=== PATIENT | female | born 1960 | race Caucasian/White ===

== ENCOUNTER 2021-04-06 16:57 | Inpatient (IN) | payer SELFPAY ==
--- NOTE | 2021-04-06 17:29 | Emergency Department Report ---
ED General Adult HPI - General Chief complaint: Head Injury Stated complaint: LEG PAIN, LOSS OF APPETITE Time Seen by Provider: 04/06/21 17:16 Source: patient Mode of arrival: Ambulatory Limitations: No Limitations - History of Present Illness Initial comments: Chief complaint: I fell HPI: This is a 61-year-old female without sniffing past medical history presents with fall right leg pain poor appetite. She is a poor appetite for several days. She fell yesterday. She struck her head. She appeared confused according to family at bedside. She has right leg pain status post fall. She denies sore throat, chest pain, abdominal pain. No sick contacts. Family friend reported that patient had leg swelling 6-7 months ago. Swelling resolved without intervention. Patient did not seek medical care at that time. -: days(s) (Fall on yesterday) Location: head (Headache after head trauma), right, lower extremity Severity scale (0 -10): 8 Quality: aching Consistency: constant Improves with: none Worsens with: movement (Right leg) Associated Symptoms: loss of appetite Treatments Prior to Arrival: other (Tylenol) - Related Data Allergies Allergy/AdvReac Type Severity Reaction Status Date / Time No Known Allergies Allergy Unverified 04/06/21 17:27 ED Review of Systems ROS: Stated complaint: LEG PAIN, LOSS OF APPETITE Other details as noted in HPI Comment: All other systems reviewed and negative Constitutional: malaise. denies: chills, fever ENT: denies: throat pain Respiratory: denies: cough, shortness of breath Cardiovascular: denies: chest pain Gastrointestinal: denies: abdominal pain, nausea, vomiting, diarrhea Musculoskeletal: arthralgia, myalgia. denies: back pain Neurological: headache ED Past Medical Hx - Past Medical History Previous Medical History?: No - Surgical History Past Surgical History?: No - Social History Smoking Status: Never Smoker Substance Use Type: None ED Physical Exam - General Limitations: No Limitations General appearance: alert, in no apparent distress, other (Appears in pain ) - Head Head exam: Present: atraumatic, normocephalic - Eye Eye exam: Present: normal appearance - ENT ENT exam: Present: mucous membranes moist - Neck Neck exam: Present: normal inspection, full ROM - Respiratory Respiratory exam: Present: normal lung sounds bilaterally. Absent: respiratory distress, wheezes, rales, rhonchi - Cardiovascular Cardiovascular Exam: Present: normal rhythm, tachycardia, normal heart sounds. Absent: systolic murmur, diastolic murmur, rubs, gallop - GI/Abdominal GI/Abdominal exam: Present: soft, normal bowel sounds. Absent: distended, te nderness, guarding, rebound - Expanded Lower Extremity Exam Right Hip exam: Present: full ROM, tenderness. Absent: swelling, abrasion Upper Leg exam: Present: normal inspection, full ROM, tenderness. Absent: swelling Knee exam: Present: normal inspection, full ROM, tenderness. Absent: swelling Lower Leg exam: Present: normal inspection, full ROM, tenderness. Absent: swelling Ankle exam: Present: normal inspection, full ROM, tenderness. Absent: swelling Foot/Toe exam: Present: normal inspection, full ROM Neuro vascular tendon exam: Present: no vascular compromise - Back Exam Back exam: Present: normal inspection - Neurological Exam Neurological exam: Present: alert, oriented X3 - Psychiatric Psychiatric exam: Present: normal affect, normal mood - Skin Skin exam: Present: warm, dry, intact, normal color. Absent: rash ED Course Vital Signs 04/06/21 04/06/21 04/06/21 17:04 17:09 17:22 Temperature 98.4 F Pulse Rate 134 H 126 H Respiratory 20 24 Rate Blood Pressure Blood Pressure 85/50 [Right] O2 Sat by Pulse 98 Oximetry 04/06/21 04/06/21 04/06/21 17:26 17:30 17:46 Temperature Pulse Rate 127 H 130 H Respiratory 23 17 Rate Blood Pressure 126/70 123/66 Blood Pressure 124/70 [Right] O2 Sat by Pulse 98 Oximetry 04/06/21 04/06/21 04/06/21 18:00 18:16 18:30 Temperature Pulse Rate 132 H 129 H 128 H Respiratory 26 H 22 23 Rate Blood Pressure 116/59 116/66 108/50 Blood Pressure [Right] O2 Sat by Pulse 100 99 100 Oximetry 04/06/21 20:04 Temperature 100.2 F H Pulse Rate 126 H Respiratory 25 H Rate Blood Pressure Blood Pressure 102/53 [Right] O2 Sat by Pulse 99 Oximetry - Reevaluation(s) Reevaluation #1: 04/06/21 23:50 Current blood pressure 106/71 ED Medical Decision Making - Lab Data Result diagrams: 04/06/21 17:29 04/06/21 17:29 - Radiology Data Radiology results: report reviewed Patient Name: CARMEN RILEY Gender: Female Date of : 1960 Referring Provider: JERMAIN BOB Organization: [facility] Accession Number: [id number] Requested Date: April 06, 2021 18:26 Report Status: Final Requested Procedure: 1 Procedure Description: CT cervical spine wo con Modality: CT Findings Reporting MD: Ander Dick Dictation Time: April 06, 2021 19:04 Service Delivery Manager: Not available Physiotherapy Assistant Date: CT CERVICAL SPINE WITHOUT CONTRAST INDICATION / CLINICAL INFORMATION: Confusion head trauma. TECHNIQUE: Axial CT images were obtained through the cervical spine. Sagittal and coronal reformatted images were produced. All CT scans at this location are performed using CT dose reduction for ALARA by means of automated exposure control. COMPARISON: None available. FINDINGS: ALIGNMENT: Mild loss of the normal cervical lordosis is noted. No additional abnormalities of alignment are identified. VERTEBRAE: No indication of fracture or bone destruction. DISC SPACES: Disc height is fairly well-maintained throughout the cervical region. DEGENERATIVE CHANGES: No significant facet or uncovertebral arthropathy. Mild anterior osteophyte formation is noted at the C5-6 and C6-7 levels. CRANIOCERVICAL JUNCTION:No significant abnormality. SPINAL CANAL: Central spinal canal is adequately maintained throughout. PARASPINAL SOFT TISSUES: No significant abnormality. ADDITIONAL FINDINGS: Bilateral internal jugular venous diverticulum are noted right larger than left. LUNG APICES: No significant abnormality of visualized lungs. IMPRESSION: 1. No indication of fracture or traumatic subluxation. Signer Name: Ander Dick MD Signed: 04/06/2021 7:04 PM Workstation Name: [id number] Patient Name: CARMEN RILEY Gender: Female Date of : 1960 Referring Provider: JERMAIN BOB Organization: [facility] Accession Number: [id number] Requested Date: April 06, 2021 18:25 Report Status: Final Requested Procedure: 1 Procedure Description: CT head/brain wo con Modality: CT Findings Reporting MD: Ander Dick Dictation Time: April 06, 2021 19:01 Service Delivery Manager: Not available Physiotherapy Assistant Date: CT HEAD WITHOUT CONTRAST INDICATION / CLINICAL INFORMATION: Confusion head trauma. TECHNIQUE: All CT scans at this location are performed using CT dose reduction for ALARA by means of automated exposure control. COMPARISON: None available. FINDINGS: HEMORRHAGE: No evidence of intracranial hemorrhage or extra-axial fluid collection. EXTRA-AXIAL SPACES: Cortical sulci, sylvian fissures and basilar cisterns have an unremarkable appearance. VENTRICULAR SYSTEM: The third and lateral ventricles are of normal size and configuration. CEREBRAL PARENCHYMA: No areas of abnormal brain parenchymal attenuation are id entified. There is no indication of recent infarction. MIDLINE SHIFT OR HERNIATION: There is no mass effect. CEREBELLUM / BRAINSTEM: Brainstem and cerebellum have an unremarkable appearance. MIDLINE STRUCTURES:No abnormalities of the pituitary gland or pineal region are identified. INTRACRANIAL VESSELS:No abnormalities are identified on this noncontrast head CT. ORBITS: visualized portions of the orbits have an unremarkable appearance. SOFT TISSUES of HEAD: No significant abnormality. CALVARIUM: Evaluation of bone windows reveals no abnormalities. PARANASAL SINUSES / MASTOID AIR CELLS: Mucosal thickening is present within multiple ethmoid air cells bilaterally and base of the left maxillary sinus. Mastoid air cells are free from inflammatory disease. IMPRESSION: 1. No intracranial abnormalities are identified on head CT without contrast. Signer Name: Ander Dick MD Signed: 04/06/2021 7:01 PM Workstation Name: [id number] CT head without acute process CT cervical spine without acute traumatic injury Right foot foot radiograph: No acute process Bilateral lower extremity Doppler: No evidence for DVT in either lower extremity CT angio chest with contrast: No evidence for pulmonary embolism, mild reticular airspace opacities in the lung bases may reflect atelectasis or developing pneumonia, multiple mildly enlarged mediastinal lymph nodes CT abdomen pelvis: Abnormal masslike thickening of the cervix and vagina, 5.6 x 3.8 cm Right tibia-fibula: No acute fracture or subluxation Right femur radiograph: No acute fracture or subluxation Chest 1 view: No acute findings - Medical Decision Making 1. Septic shock: Sepsis bundle broad-spectrum antibiotics 30 mil/kg initiated. CT angiogram infiltrate-like process versus atelectasis lung bases. Cefepime vancomycin given for pneumonia. With leukopenia hyponatremia, opportunistic infection such as PCP is a consideration. COVID-[address] revealed 5 cm mass cervix and vagina, will need outpatient gynecology follow-up. No evidence of obstruction. 3. Right lower extremity pain presumably due to fall, no evidence of fracture. Admitted to IMCU. Critical care attestation.: If time is entered above; I have spent that time in minutes in the direct care of this critically ill patient, excluding procedure time. ED Disposition Clinical Impression: Septic shock, Multifocal pneumonia, Suspected COVID-19 virus infection, Cervical mass Disposition: ADMITTED INPATIENT Is pt being admited?: Yes Does the pt Need Aspirin: No Condition: Fair Instructions: Bacterial Pneumonia (ED) Referrals: PRIMARY CARE, [Primary Care Provider] - 3-5 Days
[2021-04-06] MEDS ORDERED: SODIUM CHLORIDE 0.9% 1000 ML IV SOLN IV SCH (17:30)
[2021-04-06 18:08] LABS: Hematocrit 42.1 % (30.3-42.9); Hemoglobin 13.3 gm/dl (10.1-14.3); Mean Corpuscular HGB Conc 32 % (30-34); Mean Corpuscular Volume 89 fl (79-97); Red Blood Count 4.72 M/mm3 (3.65-5.03); Red Cell Distribution Width 13.8 % (13.2-15.2)
[2021-04-06 18:17] LABS: Alanine Aminotransferase 46 units/L (7-56); Albumin 3.7 g/dL (3.9-5); BUN/Creatinine Ratio 20; Blood Urea Nitrogen 22 mg/dL (7-17); Calcium 9.9 mg/dL (8.4-10.2); Hemolysis Index 16
[2021-04-06] MEDS ORDERED: CEFEPIME/NS 2 GM/100 ML 2 GM/100 ML BAG IV ONE (18:22)
[2021-04-06] MEDS ORDERED: VANCOMYCIN 1,750 MG in SODIUM CHLORIDE 0.9% 500 ML 500 ML IV ONE (18:22)
[2021-04-06] MEDS ORDERED: ACETAMINOPHEN 500 MG TAB PO ONE (18:24)
[2021-04-06 18:28] LABS: Platelet Count 91 K/mm3 (140-440)
--- NOTE | 2021-04-06 18:54 | XRay Report ---
CHEST 1 VIEW 04/06/2021 5:52 PM INDICATION / CLINICAL INFORMATION: hypotension. COMPARISON: None available. FINDINGS: SUPPORT DEVICES: None. HEART / MEDIASTINUM: No significant abnormality. LUNGS / PLEURA: No significant pulmonary or pleural abnormality. No pneumothorax. ADDITIONAL FINDINGS: No significant additional findings. IMPRESSION: 1. No acute findings. Signer Name: Dandre Fletcher MD Signed: 04/06/2021 6:49 PM Workstation Name: [id number]
--- NOTE | 2021-04-06 18:54 | XRay Report ---
RIGHT FEMUR 2 VIEW(S) INDICATION / CLINICAL INFORMATION: fall leg pain COMPARISON: None available. FINDINGS: BONES / JOINT(S): No acute fracture or subluxation. No significant arthritis. SOFT TISSUES: No significant abnormality. ADDITIONAL FINDINGS: None. Signer Name: Dandre Fletcher MD Signed: 04/06/2021 6:49 PM Workstation Name: [id number]
[2021-04-06] MEDS ORDERED: VANCOMYCIN PHARMACY TO DOSE IV SCH (19:00)
--- NOTE | 2021-04-06 19:10 | XRay Report ---
RIGHT TIBIA-FIBULA 2 VIEW(S) INDICATION / CLINICAL INFORMATION: fall leg pain COMPARISON: None available. FINDINGS: BONES / JOINT(S): No acute fracture or subluxation. No significant arthritis. SOFT TISSUES: No significant abnormality. ADDITIONAL FINDINGS: None. Signer Name: Dandre Fletcher MD Signed: 04/06/2021 7:05 PM Workstation Name: [id number]
[2021-04-06] MEDS ORDERED: VANCOMYCIN 1,750 MG in SODIUM CHLORIDE 0.9% 500 ML 500 ML IV SCH (19:30)
--- NOTE | 2021-04-06 20:06 | Cat Scan Report ---
CT HEAD WITHOUT CONTRAST INDICATION / CLINICAL INFORMATION: Confusion head trauma. TECHNIQUE: All CT scans at this location are performed using CT dose reduction for ALARA by means of automated e xposure control. COMPARISON: None available. FINDINGS: HEMORRHAGE: No evidence of intracranial hemorrhage or extra-axial fluid collection. EXTRA-AXIAL SPACES: Cortical sulci, sylvian fissures and basilar cisterns have an unremarkable appear ance. VENTRICULAR SYSTEM: The third and lateral ventricles are of normal size and configuration. CEREBRAL PARENCHYMA: No areas of abnormal brain parenchymal attenuation are identified. There is no i ndication of recent infarction. MIDLINE SHIFT OR HERNIATION: There is no mass effect. CEREBELLUM / BRAINSTEM: Brainstem and cerebellum have an unremarkable appearance. MIDLINE STRUCTURES:No abnormalities of the pituitary gland or pineal region are identified. INTRACRANIAL VESSELS:No abnormalities are identified on this noncontrast head CT. ORBITS: visualized portions of the orbits have an unremarkable appearance. SOFT TISSUES of HEAD: No significant abnormality. CALVARIUM: Evaluation of bone windows reveals no abnormalities. PARANASAL SINUSES / MASTOID AIR CELLS: Mucosal thickening is present within multiple ethmoid air cell s bilaterally and base of the left maxillary sinus. Mastoid air cells are free from inflammatory dise ase. IMPRESSION: 1. No intracranial abnormalities are identified on head CT without contrast. Signer Name: Ander Dick MD Signed: 04/06/2021 8:01 PM Workstation Name: [id number]
--- NOTE | 2021-04-06 20:08 | Cat Scan Report ---
CT CERVICAL SPINE WITHOUT CONTRAST INDICATION / CLINICAL INFORMATION: Confusion head trauma. TECHNIQUE: Axial CT images were obtained through the cervical spine. Sagittal and coronal reformatted images wer e produced. All CT scans at this location are performed using CT dose reduction for ALARA by means of automated exposure control. COMPARISON: None available. FINDINGS: ALIGNMENT: Mild loss of the normal cervical lordosis is noted. No additional abnormalities of alignme nt are identified. VERTEBRAE: No indication of fracture or bone destruction. DISC SPACES: Disc height is fairly well-maintained throughout the cervical region. DEGENERATIVE CHANGES: No significant facet or uncovertebral arthropathy. Mild anterior osteophyte for mation is noted at the C5-6 and C6-7 levels. CRANIOCERVICAL JUNCTION:No significant abnormality. SPINAL CANAL: Central spinal canal is adequately maintained throughout. PARASPINAL SOFT TISSUES: No significant abnormality. ADDITIONAL FINDINGS: Bilateral internal jugular venous diverticulum are noted right larger than left. LUNG APICES: No significant abnormality of visualized lungs. IMPRESSION: 1. No indication of fracture or traumatic subluxation. Signer Name: Ander Dcik MD Signed: 04/06/2021 8:04 PM Workstation Name: [id number]
[2021-04-06 20:47] LABS: Total Cells Counted 100
[2021-04-06 20:48] LABS: Platelet Estimate Consistent w Auto; RBC Morphology Normal
[2021-04-06 22:11] LABS: Bilirubin,Urine NEG (Negative); Blood,Urine SM (Negative); Color,Urine Yellow (Yellow); Mucus,Urine FEW /HPF; Urobilinogen,Urine < 2.0 mg/dL (<2.0)
--- NOTE | 2021-04-06 22:14 | Vascular Lab Report ---
DUPLEX DOPPLER LOWER EXTREMITY VEINS, BILATERAL INDICATION / CLINICAL INFORMATION: Elevated D-dimer leg swelling leg pain. TECHNIQUE: Duplex doppler imaging was performed through the veins of both lower extremities using venous red diann and other maneuvers. COMPARISON: None available. FINDINGS: RIGHT COMMON FEMORAL VEIN: Negative. RIGHT FEMORAL VEIN: Negative. RIGHT POPLITEAL VEIN: Negative. RIGHT CALF VEINS: Negative. LEFT COMMON FEMORAL VEIN: Negative. LEFT FEMORAL VEIN: Negative. LEFT POPLITEAL VEIN: Negative. LEFT CALF VEINS: Negative. ADDITIONAL FINDINGS: None. IMPRESSION: 1. No sonographic evidence for DVT in either lower extremity. Signer Name: Rubens Clinton MD Signed: 04/06/2021 10:09 PM Workstation Name: [id number]
--- NOTE | 2021-04-06 22:32 | Cat Scan Report ---
CTA CHEST WITH CONTRAST INDICATION / CLINICAL INFORMATION: Tachycardia hypotension. TECHNIQUE: Axial CT images were obtained through the chest after injection of IV contrast. 3 plane W[place] P and/or 3D reconstructions were produced. All CT scans at this location are performed using CT dose reduction for ALARA by means of automated exposure control. COMPARISON: None available. FINDINGS: PULMONARY ARTERIES: No central or segmental pulmonary embolus. THORACIC AORTA: No significant abnormality. HEART: No significant abnormality. ADENOPATHY: Several mildly enlarged mediastinal lymph nodes are present, to include precarinal lymph node measuring 1.2 cm in short axis. These are likely reactive in etiology. LUNGS/PLEURA: Mild patchy reticular/airspace opacities within the lung bases. There is mild interlobu lar septal thickening. No pleural effusion. No pneumothorax. ADDITIONAL FINDINGS: None. UPPER ABDOMEN: No acute findings. SKELETAL STRUCTURES: No significant osseous abnormality. IMPRESSION: 1. No evidence for pulmonary embolism. 2. Mild reticular/airspace opacities within the lung bases, may reflect atelectasis or developing pne umonia. 3. Multiple mildly enlarged mediastinal lymph nodes are presumably reactive. Continued follow-up is r ecommended Signer Name: Rubens Clinton MD Signed: 04/06/2021 10:28 PM Workstation Name: [id number]
--- NOTE | 2021-04-06 22:38 | Cat Scan Report ---
CT abdomen pelvis w con INDICATION / CLINICAL INFORMATION: Septic shock. TECHNIQUE: Axial CT images were obtained through the abdomen and pelvis after IV contrast. All CT sc ans at this location are performed using CT dose reduction for ALARA by means of automated exposure c ontrol. COMPARISON: None available. FINDINGS: LOWER CHEST: Detailed separately LIVER: No significant abnormality GALLBLADDER/BILIARY TREE: No significant abnormality PANCREAS: No significant abnormality SPLEEN: No significant abnormality ADRENALS: No significant abnormality KIDNEYS / URETER: No significant abnormality URINARY BLADDER: Bladder is partially decompressed, though grossly unremarkable. REPRODUCTIVE ORGANS: There is abnormal circumferential masslike thickening of the cervix, measuring 5 .6 x 3.8 cm transaxially (series 3 image 154). There is also abnormal soft tissue extending into the vagina. Moderate inflammatory changes. There are calcified uterine fibroids. The uterus appears unrem arkable. No suspicious adnexal mass. STOMACH / BOWEL: No significant abnormality. No evidence of appendicitis. LYMPH NODES: Mildly enlarged left inguinal lymph node measures 1.2 cm in short axis. No additional ad enopathy identified within the abdomen or pelvis. VASCULATURE: No significant abnormality. OTHER: No free air, free fluid, or focal fluid collection is identified. Uncomplicated fat-containing umbilical hernia. SKELETAL SYSTEM: No acute osseous findings. IMPRESSION: 1. Abnormal masslike thickening of the cervix and vagina. Malignancy is the diagnosis of exclusion. R ecommend gynecology consultation. 2. Mildly enlarged left inguinal lymph node is nonspecific. Recommend follow-up. 3. Otherwise, no significant abnormality of the abdomen or pelvis. Signer Name: Rubens Clniton MD Signed: 04/06/2021 10:34 PM Workstation Name: [id number]
[2021-04-06] MEDS ORDERED: SODIUM CHLORIDE 0.9% 1000 ML 1,000 ML IV ONE (22:55)
[2021-04-06] MEDS ORDERED: MORPHINE 2 MG/1 ML INJ IV PRN (23:24)
[2021-04-06] MEDS ORDERED: MORPHINE 4 MG/1 ML INJ IV PRN (23:24)
[2021-04-06] MEDS ORDERED: ONDANSETRON 4 MG/2 ML INJ IV PRN (23:24)
[2021-04-06] MEDS ORDERED: MAGNESIUM HYDROXIDE (MOM) ORAL LIQD UDC PO PRN (23:24)
[2021-04-06] MEDS ORDERED: dexAMETHasone 4 MG/ML VIAL IV ONE (23:31)
--- NOTE | 2021-04-06 23:35 | XRay Report ---
Right foot, 2 views HISTORY: Foot pain COMPARISON: None FINDINGS: There is no acute fracture or malalignment. Lisfranc interval appears preserved. No significant arthr itis. Soft tissues are unremarkable. IMPRESSION: No acute process Signer Name: Rubens Clinton MD Signed: 04/06/2021 11:30 PM Workstation Name: [id number]
--- NOTE | 2021-04-06 23:36 | History and Physical Report ---
History of Present Illness Date of examination: 04/06/21 Date of admission: 04/06/2021 Chief complaint: Loss of Appetite Right leg pain History of present illness: 61-year-old female with no significant past medical history presenting to the emergency room today with right leg pain and progressive loss of appetite over the past few days. Patient states that she fell sometime yesterday hurt her leg. She also indicates that she struck her head but denies any headache and denies any dizziness. According to family members who were by the bedside, patient was said to appear little confused today. Patient denies any fever or chills, no chest pain or shortness of breath, no nausea or vomiting, no diarrhea and no abdominal pain. She denies any hematuria or dysuria. Denies any bright red blood per rectum. Denies any melena. Patient denies any sick contacts and no recent travel. Denies any weight loss, denies any night sweats. She denies any contact with anyone with COVID-19. She however admits that she has not had the COVID-19 vaccination. Upon arrival in the emergency room today, she appeared tachycardic and hypotensive. She received boluses of IV fluid. Work-up reveals lactic acid of 4.0, BNP of 1182, potassium level of 3.2, elevated D-dimer of greater than 10,000. WBC count of 3.0, and platelet count of 91. Urinalysis shows trace of leukocyte esterase, 18 WBC with a slightly cloudy urine. Chest x-ray, x-ray of the tibia and fibula of the right lower extremity, right femur were unremarkable. CT angiogram shows no evidence of pulmonary embolism There is mild reticular/airspace opacities within the lung bases, may reflect atelectasis or developing pneumonia. Multiple mildly enlarged mediastinal lymph nodes are presumably reactive. CT of the abdomen and pelvis reveals: 1. Abnormal masslike thickening of the cervix and vagina. Malignancy is the diagnosis of exclusion. Recommend gynecology consultation. 2. Mildly enlarged left inguinal lymph node is nonspecific. Recommend follow- up. Past History Past Medical History: No medical history Past Surgical History: No surgical history Social history: no significant social history Family history: no significant family history Medications and Allergies Allergies Allergy/AdvReac Type Severity Reaction Status Date / Time No Known Allergies Allergy Unverified 04/06/21 17:27 Active Meds: Active Medications Acetaminophen (Acetaminophen 325 Mg Tab) 650 mg PO Q6H PRN PRN Reason: Pain MILD(1-3)/Fever >100.5/VILLANUEVA Dexamethasone (Dexamethasone 4 Mg/Ml Vial) 8 mg IV ONCE ONE Stop: 04/06/21 23:32 Vancomycin HCl 1,750 mg/ (Sodium Chloride) 535 mls @ 267.5 mls/hr IV Q24H MICHELLE; Protocol Last Admin: 04/06/21 21:30 Dose: 267.5 mls/hr Documented by: Sodium Chloride (Nacl 0.9% 1000 Ml) 1,000 mls @ 999 mls/hr IV BOLUS ONE Stop: 04/06/21 23:55 Sodium Chloride (Nacl 0.9% 1000 Ml) 1,000 mls @ 125 mls/hr IV DIRECT MICHELLE Ceftriaxone Sodium (Rocephin/Ns 2 Gm/100 Ml) 2 gm in 100 mls @ 200 mls/hr IV Q24H MICHELLE; Protocol Azithromycin (Zithromax/Ns) 500 mg in 250 mls @ 250 mls/hr IV Q24H MICHELLE; Protocol Magnesium Hydroxide (Magnesium Hydroxide (Mom) Oral Liqd Udc) 30 ml PO Q4H PRN PRN Reason: Constipation Morphine Sulfate (Morphine 2 Mg/1 Ml Inj) 2 mg IV Q4H PRN PRN Reason: Pain, Moderate (4-6) Morphine Sulfate (Morphine 4 Mg/1 Ml Inj) 4 mg IV Q4H PRN PRN Reason: Pain , Severe (7-10) Ondansetron HCl (Ondansetron 4 Mg/2 Ml Inj) 4 mg IV Q8H PRN PRN Reason: Nausea And Vomiting Sodium Chloride (Sodium Chloride 0.9% 10 Ml Flush Syringe) 10 ml IV BID MICHELLE Sodium Chloride (Sodium Chloride 0.9% 10 Ml Flush Syringe) 10 ml IV PRN PRN PRN Reason: LINE FLUSH Review of Systems Constitutional: chills, no fever Ears, nose, mouth and throat: no nasal congestion, no sore throat Cardiovascular: no chest pain, no palpitations Respiratory: no cough, no shortness of breath Gastrointestinal: no abdominal pain, no nausea, no vomiting, no diarrhea Genitourinary Female: no pelvic pain, no flank pain, no dysuria, no hematuria Musculoskeletal: no neck pain, no low back pain Integumentary: no rash, no pruritis Neurological: no headaches, no confusion Psychiatric: no anxiety, no depression Endocrine: no polydipsia, no polyuria, no nocturia Exam - Constitutional Vitals: Temp Pulse Resp BP Pulse Ox 100.2 F H 126 H 25 H 102/53 99 04/06/21 20:04 04/06/21 20:04 04/06/21 20:04 04/06/21 20:04 04/06/21 20:04 General appearance: Present: no acute distress, well-nourished, other (Ill looking) - EENT Eyes: Present: PERRL, EOM intact. Absent: scleral icterus ENT: hearing intact, clear oral mucosa, dentition normal - Neck Neck: Present: supple, normal ROM - Respiratory Respiratory effort: normal Respiratory: bilateral: CTA - Cardiovascular Rhythm: regular Heart Sounds: Present: S1 & S2. Absent: gallop, systolic murmur, diastolic murmur, rub, click - Extremities Extremities: no ischemia, pulses intact, pulses symmetrical, No edema, normal temperature, Full ROM Peripheral Pulses: within normal limits - Abdominal General gastrointestinal: Present: soft, non-tender, non-distended, normal bowel sounds. Absent: mass - Integumentary Integumentary: Present: clear, warm, dry, normal turgor. Absent: rash - Musculoskeletal Musculoskeletal: strength equal bilaterally - Psychiatric Psychiatric: appropriate mood/affect, intact judgment & insight, memory intact, cooperative - Neurologic Neurologic: CNII-XII intact, moves all extremities HEART Score - HEART Score Troponin: Troponin T < 0.010 ng/mL (0.00-0.029) 04/06/21 21:27 Results - Labs CBC & Chem 7: 04/06/21 17:29 04/06/21 23:20 Labs: Abnormal lab results 04/06/21 04/06/21 04/06/21 Range/Units 17:29 17:29 17:29 WBC 3.0 L (4.5-11.0) K/mm3 Plt Count 91 L (140-440) K/mm3 Seg Neuts % (Manual) 96.0 H (40.0-70.0) % Lymphocytes % (Manual) 4.0 L (13.4-35.0) % Lymphocytes # (Manual) 0.1 L (1.2-5.4) K/mm3 D-Dimer > 70101 H (0-234) ng/mlDDU Sodium 131 L (137-145) mmol/L Potassium 3.2 L (3.6-5.0) mmol/L Chloride 96.0 L (98-107) mmol/L Carbon Dioxide 20 L (22-30) mmol/L BUN 22 H (7-17) mg/dL Glucose 129 H (65-100) mg/dL Lactic Acid (0.7-2.0) mmol/L AST 70 H (5-40) units/L NT-Pro-B Natriuret Pep (0-900) pg/mL Albumin 3.7 L (3.9-5) g/dL Urine WBC (Auto) (0.0-6.0) /HPF 04/06/21 04/06/21 04/06/21 Range/Units 17:29 21:27 21:27 WBC (4.5-11.0) K/mm3 Plt Count (140-440) K/mm3 Seg Neuts % (Manual) (40.0-70.0) % Lymphocytes % (Manual) (13.4-35.0) % Lymphocytes # (Manual) (1.2-5.4) K/mm3 D-Dimer (0-234) ng/mlDDU Sodium (137-145) mmol/L Potassium (3.6-5.0) mmol/L Chloride (98-107) mmol/L Carbon Dioxide (22-30) mmol/L BUN (7-17) mg/dL Glucose (65-100) mg/dL Lactic Acid 4.00 H* 3.60 H* (0.7-2.0) mmol/L AST (5-40) units/L NT-Pro-B Natriuret Pep 1182 H (0-900) pg/mL Albumin (3.9-5) g/dL Urine WBC (Auto) (0.0-6.0) /HPF 04/06/21 Range/Units 21:37 WBC (4.5-11.0) K/mm3 Plt Count (140-440) K/mm3 Seg Neuts % (Manual) (40.0-70.0) % Lymphocytes % (Manual) (13.4-35.0) % Lymphocytes # (Manual) (1.2-5.4) K/mm3 D-Dimer (0-234) ng/mlDDU Sodium (137-145) mmol/L Potassium (3.6-5.0) mmol/L Chloride (98-107) mmol/L Carbon Dioxide (22-30) mmol/L BUN (7-17) mg/dL Glucose (65-100) mg/dL Lactic Acid (0.7-2.0) mmol/L AST (5-40) units/L NT-Pro-B Natriuret Pep (0-900) pg/mL Albumin (3.9-5) g/dL Urine WBC (Auto) 18.0 H (0.0-6.0) /HPF Assessment and Plan - Patient Problems (1) Septic shock Current Visit: Yes Status: Acute Plan to address problem: Patient placed on empiric IV antibiotics and IV fluid Will await culture results. Patient persistently hypotensive despite boluses of IV fluid. She was therefore placed on pressor. (2) Multifocal pneumonia Current Visit: Yes Status: Acute Plan to address problem: Patient placed on empiric IV antibiotics. We will also check for COVID-19. (3) Suspected COVID-19 virus infection Current Visit: Yes Status: Acute Plan to address problem: Patient will be placed on isolation precautions. We await Covid testing. Consult placed to infectious disease for evaluation. (4) Hypokalemia Current Visit: Yes Status: Acute Plan to address problem: Potassium will be repleted and will monitor chemistry. (5) Thrombocytopenia Current Visit: Yes Status: Acute Plan to address problem: Etiology unclear. Consult placed to heme-onc for evaluation and recommendations. (6) Cervical mass Current Visit: Yes Status: Acute Plan to address problem: Presumably a malignancy. Consult placed to [facility] for evaluation and recommendation. (7) DVT prophylaxis Current Visit: Yes Status: Acute Plan to address problem: Patient placed on subcutaneous heparin. (8) Full code status Current Visit: Yes Status: Acute Plan to address problem: Patient is full code.
[2021-04-07] MEDS ORDERED: POTASSIUM CHLORIDE 10 MEQ 10 MEQ/100 ML BAG IV ONE (00:13)
[2021-04-07 00:51] LABS: C-Reactive Protein 22.3 mg/dL (0.00-1.30)
[2021-04-07] MEDS ORDERED: NORepinephrine/NS 8 MG-250 ML 8 MG/250 ML INFUS..BTL IV SCH (01:00)
[2021-04-07] MEDS: cefTRIAXone/NS 2 GM/100 ML 2 GM/100 ML BAG IV SCH ×2 (02:06→21:16)
[2021-04-07] MEDS: SODIUM CHLORIDE 0.9% 1000 ML 1,000 ML IV SCH ×2 (02:06→21:17)
[2021-04-07] MEDS ORDERED: SODIUM CHLORIDE 0.9% 1000 ML 1,000 ML IV ONE (03:02)
[2021-04-07] MEDS: AZITHROMYCIN/NS 500 MG/250 ML 500 MG/250 ML BAG IV SCH ×2 (04:02→22:05)
[2021-04-07 05:11] LABS: Hematocrit 36.6 % (30.3-42.9); Hemoglobin 11.6 gm/dl (10.1-14.3); Mean Corpuscular HGB Conc 32 % (30-34); Mean Corpuscular Volume 90 fl (79-97); Red Blood Count 4.05 M/mm3 (3.65-5.03); Red Cell Distribution Width 13.9 % (13.2-15.2)
[2021-04-07 05:27] LABS: Platelet Count 61 K/mm3 (140-440)
[2021-04-07 05:28] LABS: Blood Urea Nitrogen 13 mg/dL (7-17); Calcium 8.1 mg/dL (8.4-10.2); Hemolysis Index 7
[2021-04-07 05:34] LABS: BUN/Creatinine Ratio 26
[2021-04-07] MEDS ORDERED: POTASSIUM CHLORIDE ER 20 MEQ TAB PO NR (08:30)
[2021-04-07 08:41] LABS: Band Neutrophils # (Manual) 2.4 K/mm3; Total Cells Counted 100
[2021-04-07 08:43] LABS: Platelet Estimate Consistent w Auto; RBC Morphology Normal
--- NOTE | 2021-04-07 11:25 | Progress Note ---
<YESENIA DRAPER - Last Filed: 04/07/21 15:46> Assessment and Plan Assessment and plan: This is a 61-year-old female with no significant past medical history who presented s/o fall at home complaining on right leg pain and progressive loss of appetite over the past few days. Patient was admitted for Septic shock probably due to PNA/COVID PUI vs UTI required pressors. Imagings also revealed abnormal masslike thickening of the cervix and vagina, concern for malignancy, CEMENT PAVER and Hem consulted. Hospital Course to Date: 04/07/21- Patient is off pressors this am, on RA, alert but still confused. Still tachycardic this am, remains afebrile overnight, leukopenia improved, COVID swab pending. Will continue current IVF and IV Abx, ID consult pending. Worsen thrombocytopenia this am, no s/s of any bleeding, H&H is stable HEME consult pending. SCDs ordered for VTE proph. Electrolytes repleted. Will continue to trend lactic acid, CBC, and BMP. Assessment and Plan #Acute Metabolic Encephalopathy - Probably due infectious process - 04/06 CT head with no acute intracranial abnormality - Patient awake and responsive with some confusion - Fell at home - Imagings with no evidence of fractures - Avoid benzodiazepine to reduce the possibility of delirium - Prn analgesia for pain management - Maintenance of sleep-wake cycle - Fall precaution #Septic Shock #Hypotension- resolved #Tachycardia - Presented with low BP and ST - Patient remains ST on the monitor - s/p over 4L NS bolus - No longer on pressors - Maintain adequate perfusion - Continue rehydration with cont. IVF - Continue blood pressure monitor per protocol - Maintain MAP above 65 - SCDs for VTE proph #GI: Poor Oral Intake - Patient c/o of poor appetite - Nutrition consulted - PPI added - Continue BR #Hypokalemia - K remains 3.2 this despite replacement - K repleted - Will check mg, & phosp, and continue to trend BMP - Strict intake and output - Avoid nephrotoxic medications; Renally dose medications - Continue IVF for now - Monitor and replace electrolytes as needed #Cervical Mass #Thrombocytopenia #Leukopenia - 04/06 CT abd/pelvis showed abnormal masslike thickening of the cervix and vagina with mildly enlarged left inguinal lymph node. Concern for Malignancy - Plt continue to drop, 61 this am - Presented with low WBCs - elevated inflammatory markers - CEMENT PAVER consulted - HEME consulted - NO AC at this time - BLE doppler neg for DVT - SCDs to bilateral lower extremities while in bed - Continue to trend CBC #Septic shock #Multifocal pneumonia #Urinary Tract Infection (UTI) #COVID PUI #Lactic Acidosis - lactic as high as 4.4 - 04/06 CTA chest: Neg PE, with mild reticular/airspace opacities within the lung bases, may reflect atelectasis or developing pneumonia - 04/06 Urinalysis shows trace of leukocyte esterase, 18 WBC - Patient is afebrile - Elevated inflammatory markers - COVID swab pending - CRP 22.30, Proc 8.61 - B.cultX2 pending, urine culture pending - Continue empiric ABx - Continue to F/U on B.cult - Daily CBC monitor - ID consulted The high probability of a clinically significant, sudden or life threatening deterioration of the [multiple] system(s) required my full and direct attention, intervention and personal management. The aggregate critical care time was [60] minutes. This time is in addition to time spent performing reported procedures but includes the following: [x] Data Review and interpretation [x] Patient assessment and monitoring of vital signs [x] Documentation [x] Medication orders and management Disposition Plan: ICU Total Time Spent with Patient (Minutes): 60 History Interval history: Patient seen and examined at the bedside. Awake and alert but still confused, on RA, denied any pain nor any discomfort. No longer on pressors. ODILON overnight Hospitalist Physical - Constitutional Vitals: Temp Pulse Resp BP Pulse Ox 98.3 F 117 H 20 118/78 99 04/07/21 08:00 04/07/21 10:30 04/07/21 10:30 04/07/21 10:30 04/07/21 10:30 General appearance: Present: no acute distress, well-nourished - EENT Eyes: Present: PERRL ENT: hearing intact, clear oral mucosa - Neck Neck: Present: normal ROM - Respiratory Respiratory effort: normal Respiratory: bilateral: diminished - Cardiovascular Rhythm: regular Heart Sounds: Present: S1 & S2 - Extremities Extremities: no ischemia, pulses intact, pulses symmetrical Peripheral Pulses: within normal limits - Abdominal General gastrointestinal: soft, non-tender, normal bowel sounds - Integumentary Integumentary: Present: clear, warm, dry - Psychiatric Psychiatric: appropriate mood/affect, cooperative - Neurologic Neurologic: CNII-XII intact, moves all extremities - Allied Health Allied health notes reviewed: nursing HEART Score - HEART Score Troponin: Troponin T < 0.010 ng/mL (0.00-0.029) 04/06/21 21:27 Results - Labs CBC & Chem 7: 04/07/21 04:31 04/07/21 04:31 Labs: Laboratory Last Values WBC 4.7 K/mm3 (4.5-11.0) 04/07/21 04:31 RBC 4.05 M/mm3 (3.65-5.03) 04/07/21 04:31 Hgb 11.6 gm/dl (10.1-14.3) 04/07/21 04:31 Hct 36.6 % (30.3-42.9) 04/07/21 04:31 MCV 90 fl (79-97) 04/07/21 04:31 MCH 29 pg (28-32) 04/07/21 04:31 MCHC 32 % (30-34) 04/07/21 04:31 RDW 13.9 % (13.2-15.2) 04/07/21 04:31 Plt Count 61 K/mm3 (140-440) L 04/07/21 04:31 Add Manual Diff Complete 04/07/21 04:31 Total Counted 100 04/07/21 04:31 Seg Neutrophils % [place] 04/07/21 04:31 Seg Neuts % (Manual) 45.0 % (40.0-70.0) 04/07/21 04:31 Band Neutrophils % 50.0 % 04/07/21 04:31 Lymphocytes % (Manual) 1.0 % (13.4-35.0) L 04/07/21 04:31 Monocytes % (Manual) 1.0 % (0.0-7.3) 04/07/21 04:31 Metamyelocytes % 3.0 % 04/07/21 04:31 Nucleated RBC % Not Reportable 04/07/21 04:31 Seg Neutrophils # Man 2.1 K/mm3 (1.8-7.7) 04/07/21 04:31 Band Neutrophils # 2.4 K/mm3 04/07/21 04:31 Lymphocytes # (Manual) 0.0 K/mm3 (1.2-5.4) L 04/07/21 04:31 Abs React Lymphs (Man) 0.0 K/mm3 04/07/21 04:31 Monocytes # (Manual) 0.0 K/mm3 (0.0-0.8) 04/07/21 04:31 Eosinophils # (Manual) 0.0 K/mm3 (0.0-0.4) 04/07/21 04:31 Basophils # (Manual) 0.0 K/mm3 (0.0-0.1) 04/07/21 04:31 Metamyelocytes # 0.1 K/mm3 04/07/21 04:31 Myelocytes # 0.0 K/mm3 04/07/21 04:31 Promyelocytes # 0.0 K/mm3 04/07/21 04:31 Blast Cells # 0.0 K/mm3 04/07/21 04:31 WBC Morphology Not Reportable 04/07/21 04:31 Hypersegmented Neuts Not Reportable 04/07/21 04:31 Hyposegmented Neuts Not Reportable 04/07/21 04:31 Hypogranular Neuts Not Reportable 04/07/21 04:31 Smudge Cells Not Reportable 04/07/21 04:31 Toxic Granulation Not Reportable 04/07/21 04:31 Toxic Vacuolation Not Reportable 04/07/21 04:31 Dohle Bodies Not Reportable 04/07/21 04:31 Pelger-Huet Anomaly Not Reportable 04/07/21 04:31 Rafal Rods Not Reportable 04/07/21 04:31 Platelet Estimate Consistent w auto 04/07/21 04:31 Clumped Platelets Not Reportable 04/07/21 04:31 Plt Clumps, EDTA Not Reportable 04/07/21 04:31 Large Platelets Not Reportable 04/07/21 04:31 Giant Platelets Not Reportable 04/07/21 04:31 Platelet Satelliting Not Reportable 04/07/21 04:31 Plt Morphology Comment Not Reportable 04/07/21 04:31 RBC Morphology Normal 04/07/21 04:31 Dimorphic RBCs Not Reportable 04/07/21 04:31 Polychromasia Not Reportable 04/07/21 04:31 Hypochromasia Not Reportable 04/07/21 04:31 Poikilocytosis Not Reportable 04/07/21 04:31 Anisocytosis Not Reportable 04/07/21 04:31 Microcytosis Not Reportable 04/07/21 04:31 Macrocytosis Not Reportable 04/07/21 04:31 Spherocytes Not Reportable 04/07/21 04:31 Pappenheimer Bodies Not Reportable 04/07/21 04:31 Sickle Cells Not Reportable 04/07/21 04:31 Target Cells Not Reportable 04/07/21 04:31 Tear Drop Cells Not Reportable 04/07/21 04:31 Ovalocytes Not Reportable 04/07/21 04:31 Helmet Cells Not Reportable 04/07/21 04:31 [place] Bodies Not Reportable 04/07/21 04:31 [place] Rings Not Reportable 04/07/21 04:31 [place] Cells Not Reportable 04/07/21 04:31 Bite Cells Not Reportable 04/07/21 04:31 Crenated Cell Not Reportable 04/07/21 04:31 Elliptocytes Not Reportable 04/07/21 04:31 Acanthocytes (Spur) Not Reportable 04/07/21 04:31 Rouleaux Not Reportable 04/07/21 04:31 Hemoglobin C Crystals Not Reportable 04/07/21 04:31 Schistocytes Not Reportable 04/07/21 04:31 Malaria parasites Not Reportable 04/07/21 04:31 Gaudencio Bodies Not Reportable 04/07/21 04:31 Hem Pathologist Commnt No 04/07/21 04:31 D-Dimer > 84015 ng/mlDDU (0-234) H 04/06/21 17:29 Sodium 138 mmol/L (137-145) D 04/07/21 04:31 Potassium 3.2 mmol/L (3.6-5.0) L 04/07/21 04:31 Chloride 108.4 mmol/L (98-107) H 04/07/21 04:31 Carbon Dioxide 18 mmol/L (22-30) L 04/07/21 04:31 Anion Gap 15 mmol/L 04/07/21 04:31 BUN 13 mg/dL (7-17) 04/07/21 04:31 Creatinine 0.5 mg/dL (0.6-1.2) L D 04/07/21 04:31 Estimated GFR > 60 ml/min 04/07/21 04:31 BUN/Creatinine Ratio 26 % 04/07/21 04:31 Glucose 120 mg/dL (65-100) H 04/07/21 04:31 Lactic Acid 2.40 mmol/L (0.7-2.0) H* 04/07/21 04:31 Calcium 8.1 mg/dL (8.4-10.2) L D 04/07/21 04:31 Ferritin 660.2 ng/mL (10.0-200.0) H 04/06/21 23:20 Total Bilirubin 1.20 mg/dL (0.1-1.2) 04/06/21 17:29 AST 70 units/L (5-40) H 04/06/21 17:29 ALT 46 units/L (7-56) 04/06/21 17:29 Alkaline Phosphatase 94 units/L (35-129) 04/06/21 17:29 Lactate Dehydrogenase 322 units/L (91-180) H 04/06/21 23:20 Troponin T < 0.010 ng/mL (0.00-0.029) 04/06/21 21:27 C-Reactive Protein 22.30 mg/dL (0.00-1.30) H 04/06/21 23:20 NT-Pro-B Natriuret Pep 1182 pg/mL (0-900) H 04/06/21 21:27 Total Protein 6.9 g/dL (6.3-8.2) 04/06/21 17:29 Albumin 3.7 g/dL (3.9-5) L 04/06/21 17:29 Albumin/Globulin Ratio 1.2 % 04/06/21 17:29 Procalcitonin 8.61 ng/mL (<0.15) 04/06/21 23:20 Urine Color Yellow (Yellow) 04/06/21 21:37 Urine Turbidity Slightly-cloudy (Clear) 04/06/21 21:37 Urine pH 5.0 (5.0-7.0) 04/06/21 21:37 Ur Specific [place] 1.014 (1.003-1.030) 04/06/21 21:37 Urine Protein 30 mg/dl mg/dL (Negative) 04/06/21 21:37 Urine Glucose (UA) Neg mg/dL (Negative) 04/06/21 21:37 Urine Ketones Neg mg/dL (Negative) 04/06/21 21:37 Urine Blood Sm (Negative) 04/06/21 21:37 Urine Nitrite Neg (Negative) 04/06/21 21:37 Urine Bilirubin Neg (Negative) 04/06/21 21:37 Urine Urobilinogen < 2.0 mg/dL (<2.0) 04/06/21 21:37 Ur Leukocyte Esterase Tr (Negative) 04/06/21 21:37 Urine WBC (Auto) 18.0 /HPF (0.0-6.0) H 04/06/21 21:37 Urine RBC (Auto) 2.0 /HPF (0.0-6.0) 04/06/21 21:37 U Epithel Cells (Auto) 2.0 /HPF (0-13.0) 04/06/21 21:37 Urine Mucus Few /HPF 04/06/21 21:37 Microbiology: Microbiology 04/06/21 17:29 Peripheral/Venous Blood Culture - Preliminary 04/06/21 17:29 Peripheral/Venous Blood Culture - Preliminary Contreras/IV: Voiding Method External Female Catheter Active Medications - Current Medications Current Medications: Generic Name Dose Route Start Last Admin Trade Name Freq PRN Reason Stop Dose Admin Acetaminophen 650 mg 04/06/21 23:24 Acetaminophen 325 Mg Tab PO Q6H PRN Pain MILD(1-3)/Fever >100.5/VILLANUEVA Sodium Chloride 1,000 mls @ 125 mls/hr 04/06/21 23:30 04/07/21 02:06 Nacl 0.9% 1000 Ml IV 125 mls/hr DIRECT MICHELLE Administration Ceftriaxone Sodium 2 gm in 100 mls @ 200 mls/hr 04/06/21 23:45 04/07/21 02:06 Rocephin/Ns 2 Gm/100 Ml IV 200 mls/hr Q24HR@2200 MICHELLE Administration Protocol Azithromycin 500 mg in 250 mls @ 250 mls/hr 04/06/21 23:45 04/07/21 04:02 Zithromax/Ns IV 250 mls/hr Q24HR@2200 MICHELLE Administration Protocol NORepinephrine/NS 8 MG-250 ML 8 mg in 250 mls @ 3.75 mls/hr 04/07/21 01:00 04/07/21 03:30 Norepinephrine/Ns 8 Mg-250 Ml (Double Conc) IV 0 mcg/min TITRATE MICHELLE 0 mls/hr Titration Protocol 2 MCG/MIN Vancomycin HCl 1 gm in 250 mls @ 167.007 mls/hr 04/07/21 12:00 Vancomycin/Ns 1 Gm/250 Ml IV Q12H MICHELLE Magnesium Hydroxide 30 ml 04/06/21 23:24 Magnesium Hydroxide (Mom) Oral Liqd Udc PO Q4H PRN Constipation Morphine Sulfate 2 mg 04/06/21 23:24 Morphine 2 Mg/1 Ml Inj IV Q4H PRN Pain, Moderate (4-6) Morphine Sulfate 4 mg 04/06/21 23:24 Morphine 4 Mg/1 Ml Inj IV Q4H PRN Pain , Severe (7-10) Ondansetron HCl 4 mg 04/06/21 23:24 Ondansetron 4 Mg/2 Ml Inj IV Q8H PRN Nausea And Vomiting Sodium Chloride 10 ml 04/07/21 10:00 Sodium Chloride 0.9% 10 Ml Flush Syringe IV BID MICHELLE Sodium Chloride 10 ml 04/06/21 23:22 Sodium Chloride 0.9% 10 Ml Flush Syringe IV PRN PRN LINE FLUSH <ARELIS PINA - Last Filed: 04/14/21 07:25> Assessment and Plan Assessment and plan: I saw and evaluated the patient. Discussed with the nurse practitioner and agree with their findings and plan as documented in this note. I saw and evaluated the patient. Discussed with the nurse practitioner and agree with their findings and plan as documented in this note. Hospitalist Physical - Constitutional Vitals: Temp Pulse Resp BP Pulse Ox 98.0 F 96 H 20 144/86 98 04/13/21 11:53 04/13/21 11:53 04/13/21 11:53 04/13/21 11:53 04/13/21 11:53 HEART Score - HEART Score Troponin: Troponin T < 0.010 ng/mL (0.00-0.029) 04/06/21 21:27 Results - Labs CBC & Chem 7: 04/13/21 04:41 04/13/21 04:41 Labs: Laboratory Last Values WBC 14.5 K/mm3 (4.5-11.0) H 04/13/21 04:41 RBC 3.61 M/mm3 (3.65-5.03) L 04/13/21 04:41 Hgb 10.1 gm/dl (10.1-14.3) 04/13/21 04:41 Hct 31.3 % (30.3-42.9) 04/13/21 04:41 MCV 87 fl (79-97) 04/13/21 04:41 MCH 28 pg (28-32) 04/13/21 04:41 MCHC 32 % (30-34) 04/13/21 04:41 RDW 14.3 % (13.2-15.2) 04/13/21 04:41 Plt Count 201 K/mm3 (140-440) 04/13/21 04:41 [place] % (Auto) 5.8 % (0.0-7.3) 04/12/21 13:42 Eos % (Auto) 0.5 % (0.0-4.3) 04/12/21 13:42 [place] # (Auto) 1.1 K/mm3 (0.0-0.8) H 04/12/21 13:42 Eos # (Auto) 0.1 K/mm3 (0.0-0.4) 04/12/21 13:42 Baso # (Auto) 0.0 K/mm3 (0.0-0.1) 04/12/21 13:42 Add Manual Diff Complete 04/13/21 04:41 Total Counted 100 04/13/21 04:41 Seg Neutrophils % 84.2 % (40.0-70.0) H 04/12/21 13:42 Seg Neuts % (Manual) 80.0 % (40.0-70.0) H 04/13/21 04:41 Band Neutrophils % 7.0 % 04/13/21 04:41 Lymphocytes % (Manual) 10.0 % (13.4-35.0) L 04/13/21 04:41 Reactive Lymphs % (Man) 2.0 % 04/13/21 04:41 Monocytes % (Manual) 3.0 % (0.0-7.3) 04/12/21 13:42 Eosinophils % (Manual) 1.0 % (0.0-4.3) 04/12/21 13:42 Metamyelocytes % 1.0 % 04/10/21 04:00 Myelocytes % 1.0 % 04/12/21 13:42 Promyelocytes % 1.0 % 04/13/21 04:41 Nucleated RBC % Not Reportable 04/13/21 04:41 Seg Neutrophils # 16.0 K/mm3 (1.8-7.7) H 04/12/21 13:42 Seg Neutrophils # Man 11.6 K/mm3 (1.8-7.7) H 04/13/21 04:41 Band Neutrophils # 1.0 K/mm3 04/13/21 04:41 Lymphocytes # (Manual) 1.5 K/mm3 (1.2-5.4) 04/13/21 04:41 Abs React Lymphs (Man) 0.3 K/mm3 04/13/21 04:41 Monocytes # (Manual) 0.0 K/mm3 (0.0-0.8) 04/13/21 04:41 Eosinophils # (Manual) 0.0 K/mm3 (0.0-0.4) 04/13/21 04:41 Basophils # (Manual) 0.0 K/mm3 (0.0-0.1) 04/13/21 04:41 Metamyelocytes # 0.0 K/mm3 04/13/21 04:41 Myelocytes # 0.0 K/mm3 04/13/21 04:41 Promyelocytes # 0.1 K/mm3 04/13/21 04:41 Blast Cells # 0.0 K/mm3 04/13/21 04:41 WBC Morphology Not Reportable 04/13/21 04:41 Hypersegmented Neuts Not Reportable 04/13/21 04:41 Hyposegmented Neuts Not Reportable 04/13/21 04:41 Hypogranular Neuts Not Reportable 04/13/21 04:41 Smudge Cells Not Reportable 04/13/21 04:41 Toxic Granulation 1+ 04/13/21 04:41 Toxic Vacuolation Not Reportable 04/13/21 04:41 Dohle Bodies Not Reportable 04/13/21 04:41 Pelger-Huet Anomaly Not Reportable 04/13/21 04:41 Rafal Rods Not Reportable 04/13/21 04:41 Platelet Estimate Consistent w auto 04/13/21 04:41 Clumped Platelets Not Reportable 04/13/21 04:41 Plt Clumps, EDTA Not Reportable 04/13/21 04:41 Large Platelets Not Reportable 04/13/21 04:41 Giant Platelets Not Reportable 04/13/21 04:41 Platelet Satelliting Not Reportable 04/13/21 04:41 Plt Morphology Comment Not Reportable 04/13/21 04:41 RBC Morphology Not Reportable 04/13/21 04:41 Dimorphic RBCs Not Reportable 04/13/21 04:41 Polychromasia Not Reportable 04/13/21 04:41 Hypochromasia 2+ 04/13/21 04:41 Poikilocytosis Not Reportable 04/13/21 04:41 Anisocytosis Not Reportable 04/13/21 04:41 Microcytosis Not Reportable 04/13/21 04:41 Macrocytosis Not Reportable 04/13/21 04:41 Spherocytes Not Reportable 04/13/21 04:41 Pappenheimer Bodies Not Reportable 04/13/21 04:41 Sickle Cells Not Reportable 04/13/21 04:41 Target Cells 1+ 04/13/21 04:41 Tear Drop Cells Not Reportable 04/13/21 04:41 Ovalocytes Few 04/13/21 04:41 Helmet Cells Not Reportable 04/13/21 04:41 [place] Bodies Not Reportable 04/13/21 04:41 [place] Rings Not Reportable 04/13/21 04:41 [place] Cells Not Reportable 04/13/21 04:41 Bite Cells Not Reportable 04/13/21 04:41 Crenated Cell Not Reportable 04/13/21 04:41 Elliptocytes Not Reportable 04/13/21 04:41 Acanthocytes (Spur) Not Reportable 04/13/21 04:41 Rouleaux Not Reportable 04/13/21 04:41 Hemoglobin C Crystals Not Reportable 04/13/21 04:41 Schistocytes Not Reportable 04/13/21 04:41 Malaria parasites Not Reportable 04/13/21 04:41 ESR 1 mm/Hr (0-20) 04/13/21 04:41 Gaudencio Bodies Not Reportable 04/13/21 04:41 Hem Pathologist Commnt No 04/13/21 04:41 PT 13.6 Sec. (12.2-14.9) 04/09/21 08:06 INR 0.94 (0.87-1.13) 04/09/21 08:06 APTT 31.9 Sec. (24.2-36.6) 04/09/21 08:06 Fibrinogen 558 mg/dl (211-480) H 04/10/21 05:00 D-Dimer > 64755 ng/mlDDU (0-234) H 04/06/21 17:29 Sodium 137 mmol/L (137-145) 04/13/21 04:41 Potassium 4.0 mmol/L (3.6-5.0) 04/13/21 04:41 Chloride 103.4 mmol/L (98-107) 04/13/21 04:41 Carbon Dioxide 23 mmol/L (22-30) 04/13/21 04:41 Anion Gap 15 mmol/L 04/13/21 04:41 BUN 7 mg/dL (7-17) 04/13/21 04:41 Creatinine 0.3 mg/dL (0.6-1.2) L 04/13/21 04:41 Estimated GFR > 60 ml/min 04/13/21 04:41 BUN/Creatinine Ratio 23 % 04/13/21 04:41 Glucose 85 mg/dL (65-100) 04/13/21 04:41 Lactic Acid 1.50 mmol/L (0.7-2.0) 04/08/21 05:58 Uric Acid 2.1 mg/dL (3.5-7.6) L 04/09/21 10:00 Calcium 8.8 mg/dL (8.4-10.2) 04/13/21 04:41 Phosphorus 1.90 mg/dL (2.5-4.5) L 04/09/21 04:40 Magnesium 2.00 mg/dL (1.7-2.3) 04/09/21 04:40 Ferritin 660.2 ng/mL (10.0-200.0) H 04/06/21 23:20 Total Bilirubin 1.20 mg/dL (0.1-1.2) 04/06/21 17:29 AST 70 units/L (5-40) H 04/06/21 17:29 ALT 46 units/L (7-56) 04/06/21 17:29 Alkaline Phosphatase 94 units/L (35-129) 04/06/21 17:29 Lactate Dehydrogenase 322 units/L (91-180) H 04/06/21 23:20 Troponin T < 0.010 ng/mL (0.00-0.029) 04/06/21 21:27 C-Reactive Protein 7.40 mg/dL (0.00-1.30) H 04/13/21 04:41 NT-Pro-B Natriuret Pep 1182 pg/mL (0-900) H 04/06/21 21:27 Total Protein 6.9 g/dL (6.3-8.2) 04/06/21 17:29 Albumin 3.7 g/dL (3.9-5) L 04/06/21 17:29 Albumin/Globulin Ratio 1.2 % 04/06/21 17:29 Procalcitonin 8.61 ng/mL (<0.15) 04/06/21 23:20 Urine Color Yellow (Yellow) 04/06/21 21:37 Urine Turbidity Slightly-cloudy (Clear) 04/06/21 21:37 Urine pH 5.0 (5.0-7.0) 04/06/21 21:37 Ur Specific [place] 1.014 (1.003-1.030) 04/06/21 21:37 Urine Protein 30 mg/dl mg/dL (Negative) 04/06/21 21:37 Urine Glucose (UA) Neg mg/dL (Negative) 04/06/21 21:37 Urine Ketones Neg mg/dL (Negative) 04/06/21 21:37 Urine Blood Sm (Negative) 04/06/21 21:37 Urine Nitrite Neg (Negative) 04/06/21 21:37 Urine Bilirubin Neg (Negative) 04/06/21 21:37 Urine Urobilinogen < 2.0 mg/dL (<2.0) 04/06/21 21:37 Ur Leukocyte Esterase Tr (Negative) 04/06/21 21:37 Urine WBC (Auto) 18.0 /HPF (0.0-6.0) H 04/06/21 21:37 Urine RBC (Auto) 2.0 /HPF (0.0-6.0) 04/06/21 21:37 U Epithel Cells (Auto) 2.0 /HPF (0-13.0) 04/06/21 21:37 Urine Mucus Few /HPF 04/06/21 21:37 Vancomycin Trough 7.2 ug/mL (5.0-20.0) 04/09/21 11:14 Rheumatoid Factor 15 IU/ml (0-13) H 04/09/21 10:00 ROGELIO Screen Negative (Negative) 04/09/21 10:00 Double Strand DNA Ab <1 IU/mL (<=4) 04/09/21 10:00 Coronavirus (PCR) Negative (Negative) 04/07/21 09:05 HIV 1&2 Antibody Rapid Non react (Non React) 04/09/21 08:06 HIV P24 Antigen Non react (Non React) 04/09/21 08:06 Microbiology: Microbiology 04/09/21 18:08 Peripheral/Venous Blood Culture - Preliminary NO GROWTH AFTER 72 HOURS 04/09/21 18:15 Peripheral/Venous Blood Culture - Preliminary NO GROWTH AFTER 72 HOURS Contreras/IV: Voiding Method Bedside Commode Active Medications - Current Medications Current Medications: Generic Name Dose Route Start Last Admin Trade Name Freq PRN Reason Stop Dose Admin Acetaminophen 650 mg 04/06/21 23:24 04/09/21 11:06 Acetaminophen 325 Mg Tab PO 650 mg Q6H PRN Administration Fever >100.5/VILLANUEVA Colchicine 0.6 mg 04/09/21 10:00 04/13/21 10:05 Colchicine 0.6 Mg Tab PO 0.6 mg BID MICHELLE Administration Famotidine 20 mg 04/07/21 22:00 04/13/21 10:05 Famotidine 20 Mg Tab PO 20 mg BID MICHELLE Administration Sodium Chloride 1,000 mls @ 75 mls/hr 04/08/21 12:07 04/12/21 09:43 Nacl 0.9% 1000 Ml IV 75 mls/hr DIRECT MICHELLE Administration Penicillin G Potassium 4 mil. 50 mls @ 50 mls/hr 04/09/21 18:00 04/13/21 14:18 units/ Sodium Chloride IV 04/23/21 14:59 50 mls/hr Q4H MICHELLE Administration Ibuprofen 600 mg 04/12/21 10:30 04/12/21 10:50 Ibuprofen 600 Mg Tab PO 600 mg Q8H PRN Administration Pain, Mild (1-3) Magnesium Hydroxide 30 ml 04/06/21 23:24 Magnesium Hydroxide (Mom) Oral Liqd Udc PO Q4H PRN Constipation Ondansetron HCl 4 mg 04/06/21 23:24 Ondansetron 4 Mg/2 Ml Inj IV Q8H PRN Nausea And Vomiting Prednisone 20 mg 04/09/21 10:00 04/13/21 10:05 Prednisone 20 Mg Tab PO 20 mg QDAY MICHELLE Administration Senna 8.6 mg 04/07/21 22:00 04/12/21 22:36 Sennosides 8.6 Mg Tab PO 8.6 mg QHS MICHELLE Administration Sodium Chloride 10 ml 04/07/21 10:00 04/13/21 10:05 Sodium Chloride 0.9% 10 Ml Flush Syringe IV 10 ml BID MICHELLE Administration Sodium Chloride 10 ml 04/06/21 23:22 Sodium Chloride 0.9% 10 Ml Flush Syringe IV PRN PRN LINE FLUSH Tramadol HCl 50 mg 04/07/21 15:41 04/10/21 17:09 Tramadol 50 Mg Tab PO 50 mg Q6H PRN Administration Pain, Moderate (4-6) Nutrition/Malnutrition Assess - Dietary Evaluation Nutrition/Malnutrition Findings: Nutrition Notes Start: 04/07/21 11:35 Freq: Status: Active Protocol: Document 04/11/21 12:57 MELANI (Rec: 04/11/21 13:04 MELANI [id number]) Nutrition Notes Initial or Follow up Reassessment Other Pertinent Diagnosis Septic shock, Met encephalopathy, Pneumonia, Thromocytopenia, UTI. Current Diet Regular Diet (since D 04/07). Labs/Tests 04/10: Crea 0.3. Pertinent Medications 04/11: Nutritionally unremarkable. Height 5 ft 7 in Weight 78.6 kg [place] Body Weight (kg) 61.36 BMI 27.1 Weight change and time frame 5.32 Kg body weight loss within the last 4 days reported. Weight Status Overweight Subjective/Other Information RD consult for routine F/U on PO intake of meals. 5.32 Kg body weight loss within the last 4 days reported. No %PO intake of meals reported at the time. Dietary supplements Ensure Enlive BID ordered. Percent of energy/protein needs met: Prescribed Regular Diet provides for energy/protein needs (2,289 Kcal/89 g) during LOS; additionally, Dietary Supplements will compensate for possible Poor PO intake of meals with 700 Kcal and 40 g of protein. Burn Absent Trauma Absent GI Symptoms None Food Allergy No Skin Integrity/Comment Clear, warm, dry. #1 Nutrition Diagnosis Predicted suboptimal energy intake Etiology Ongoing concomitant critical conditions As Evidenced by Signs and Symptoms Abnormal chemistry lab values, loss of 6.77% of body weight in 4 days. No report on %PO intake of meals at the time. Is patient on ventilator? No Is Patient Ambulatory and/or Out of Bed Yes REE-([place]-St. Jeor-ambulatory/OOB) [ 1811.719 [id number]] Kcal/Kg value to use for calculation 35 Approximate Energy Requirements Using 2751 kcal/Kg Calculation Used for Recommendations Kcal/kg Additional Notes Protein: 1.2-1.5 g/Kg; 73-92 g /day (from IBW + critical care ). Fluids: 1 ml/Kcal, or as per MD. Nutrition Intervention Change Diet Order: Continue Regular Diet. Add Supplement/Snack (indicate name/kcal 8 fl oz Ensure Enlive; BID /protein ) Provides kCal: 700 Provides Protein (gm) 40 Goal #1 Maintain body weight within +/ -3% of admission BWt during LOS. Goal #2 Reach and maintain acceptable chemistry lab values during LOS. Follow-Up By: 04/19/21 Additional Comments Continue monitoring food tolerance, %PO intake of meals , Hydration, and BM.
[2021-04-07] MEDS: VANCOMYCIN/NS 1 GM/250 ML 1 GM/250 ML BAG IV SCH (12:00)
--- NOTE | 2021-04-07 14:55 | Consultation ---
History of Present Illness - Reason for Consult Consult date: 04/07/21 Rule out Covid - History of Present Illness 61-year-old female with no past medical history admitted on 04/06/2021 secondary to few days of weakness, poor appetite and a fall at home complaining of right leg pain. On arrival, temperature 98.4--> 100.2, WBC 3, hemoglobin 13.3, platelets 81. D-dimer> 10,000. Lactate 4. AST 70. CRP 22. Procalcitonin 8.6. Urinalysis with 18 WBCs and trace leukocyte esterase. SARS-CoV-2 PCR negative. Blood culture 04/06/2021 with GPC in chains 4 out of 4 bottles. Urine culture 04/06/[address] of the head unremarkable. CT cervical unremarkable. Chest x-ray unremarkable. CTA without PE, reticular airspace disease in the bases, mediastinal lymphadenopathies. Review of Systems: positive in bold print General: fever, chills, generalized weakness, malaise Cutaneous: rash, pruritus Head: headaches or injury Eyes: changes in vision, eye pain, double vision Ears: ear pain, ear discharge, ringing or hearing loss Nose: nose bleeding, stuffiness Mouth & throat: bleeding gums, horseness, no dental problems, or swollen glands Neck: no pain, node enlargement/lumps, tyroid enlargement or tenderness Respiratory: SOB, cough, AGUILAR, wheezing, sputum, hemoptysis, pleuritic chest pain Cardiovascular: chest pain, leg edema, cyanosis, AGUILAR, orthopnea Musculoskeletal: edema, deformities, pain Gastrointestinal: abdominal pain, nausea, vomiting, hematemesis, diarrhea, cons tipation, melena, bright red blood in stools, fecal incontinence, jaundice Genitourinary/Reproductive: frequent urination, dysuria, hematuria, incontinence Neurogical: seizures, headaches, weakness, paresthesias, loss of speech or vision; memory loss, vertigo, tremors, numbness Psychiatric: stable mood; excessive anxiety, sadness or moodiness Past History Past Medical History: No medical history Past Surgical History: No surgical history Social history: no significant social history Family history: no significant family history Medications and Allergies Allergies Allergy/AdvReac Type Severity Reaction Status Date / Time No Known Allergies Allergy Unverified 04/06/21 17:27 Active Meds: Active Medications Acetaminophen (Acetaminophen 325 Mg Tab) 650 mg PO Q6H PRN PRN Reason: Pain MILD(1-3)/Fever >100.5/VILLANUEVA Famotidine (Famotidine 20 Mg Tab) 20 mg PO BID MICHELLE Sodium Chloride (Nacl 0.9% 1000 Ml) 1,000 mls @ 125 mls/hr IV DIRECT MICHELLE Last Admin: 04/07/21 02:06 Dose: 125 mls/hr Documented by: Ceftriaxone Sodium (Rocephin/Ns 2 Gm/100 Ml) 2 gm in 100 mls @ 200 mls/hr IV Q24HR@2200 MICHELLE; Protocol Last Admin: 04/07/21 02:06 Dose: 200 mls/hr Documented by: Azithromycin (Zithromax/Ns) 500 mg in 250 mls @ 250 mls/hr IV Q24HR@2200 MICHELLE; Protocol Last Admin: 04/07/21 04:02 Dose: 250 mls/hr Documented by: NORepinephrine/NS 8 MG-250 ML (Norepinephrine/Ns 8 Mg-250 Ml (Double Conc)) 8 mg in 250 mls @ 3.75 mls/hr IV TITRATE MICHELLE; Protocol Last Titration: 04/07/21 03:30 Dose: 0 mcg/min, 0 mls/hr Documented by: Vancomycin HCl (Vancomycin/Ns 1 Gm/250 Ml) 1 gm in 250 mls @ 167.007 mls/hr IV Q12H MICHELLE Magnesium Hydroxide (Magnesium Hydroxide (Mom) Oral Liqd Udc) 30 ml PO Q4H PRN PRN Reason: Constipation Morphine Sulfate (Morphine 2 Mg/1 Ml Inj) 2 mg IV Q4H PRN PRN Reason: Pain, Moderate (4-6) Morphine Sulfate (Morphine 4 Mg/1 Ml Inj) 4 mg IV Q4H PRN PRN Reason: Pain , Severe (7-10) Ondansetron HCl (Ondansetron 4 Mg/2 Ml Inj) 4 mg IV Q8H PRN PRN Reason: Nausea And Vomiting Senna (Sennosides 8.6 Mg Tab) 8.6 mg PO QHS MICHELLE Sodium Chloride (Sodium Chloride 0.9% 10 Ml Flush Syringe) 10 ml IV BID MICHELLE Sodium Chloride (Sodium Chloride 0.9% 10 Ml Flush Syringe) 10 ml IV PRN PRN PRN Reason: LINE FLUSH Physical Examination - Physical Exam Narrative exam: General appearance: Alert in NAD pleasant Eyes: anicteric sclerae, moist conjunctivae; no lid-lag; PERRLA HENT: Normocephalic, Atraumatic; normal external ears, nares open, oropharynx clear Neck: supple, tracheal midline, no JVD Lungs: CTA CV: RRR no murmur Abdomen: Soft, RUQ tenderness Extremities: no edema, no cyanosis Skin: No rash. Psych: no agitated Neuro: alert and oriented x 3. Moving all extermities - Constitutional Vitals: Vital Signs Temp Pulse Resp BP Pulse Ox 98.3 F 117 H 20 118/78 99 04/07/21 08:00 04/07/21 10:30 04/07/21 10:30 04/07/21 10:30 04/07/21 10:30 Temperature -Last 24 Hours Temperature 98.3 F Temperature 98.1 F Temperature 98.6 F Temperature 99 F Temperature 100.2 F Temperature 98.4 F Results - Labs CBC & Chem 7: 04/07/21 04:31 04/07/21 04:31 Labs: Abnormal lab results 04/06/21 04/06/21 04/06/21 Range/Units 17:29 17:29 17:29 WBC 3.0 L (4.5-11.0) K/mm3 Plt Count 91 L (140-440) K/mm3 Seg Neuts % (Manual) 96.0 H (40.0-70.0) % Lymphocytes % (Manual) 4.0 L (13.4-35.0) % Lymphocytes # (Manual) 0.1 L (1.2-5.4) K/mm3 D-Dimer > 66784 H (0-234) ng/mlDDU Sodium 131 L (137-145) mmol/L Potassium 3.2 L (3.6-5.0) mmol/L Chloride 96.0 L (98-107) mmol/L Carbon Dioxide 20 L (22-30) mmol/L BUN 22 H (7-17) mg/dL Creatinine (0.6-1.2) mg/dL Glucose 129 H (65-100) mg/dL Lactic Acid (0.7-2.0) mmol/L Calcium (8.4-10.2) mg/dL Ferritin (10.0-200.0) ng/mL AST 70 H (5-40) units/L Lactate Dehydrogenase (91-180) units/L C-Reactive Protein (0.00-1.30) mg/dL NT-Pro-B Natriuret Pep (0-900) pg/mL Albumin 3.7 L (3.9-5) g/dL Urine WBC (Auto) (0.0-6.0) /HPF 04/06/21 04/06/21 04/06/21 Range/Units 17:29 21:27 21:27 WBC (4.5-11.0) K/mm3 Plt Count (140-440) K/mm3 Seg Neuts % (Manual) (40.0-70.0) % Lymphocytes % (Manual) (13.4-35.0) % Lymphocytes # (Manual) (1.2-5.4) K/mm3 D-Dimer (0-234) ng/mlDDU Sodium (137-145) mmol/L Potassium (3.6-5.0) mmol/L Chloride (98-107) mmol/L Carbon Dioxide (22-30) mmol/L BUN (7-17) mg/dL Creatinine (0.6-1.2) mg/dL Glucose (65-100) mg/dL Lactic Acid 4.00 H* 3.60 H* (0.7-2.0) mmol/L Calcium (8.4-10.2) mg/dL Ferritin (10.0-200.0) ng/mL AST (5-40) units/L Lactate Dehydrogenase (91-180) units/L C-Reactive Protein (0.00-1.30) mg/dL NT-Pro-B Natriuret Pep 1182 H (0-900) pg/mL Albumin (3.9-5) g/dL Urine WBC (Auto) (0.0-6.0) /HPF 04/06/21 04/06/21 04/06/21 Range/Units 21:37 23:20 23:20 WBC (4.5-11.0) K/mm3 Plt Count (140-440) K/mm3 Seg Neuts % (Manual) (40.0-70.0) % Lymphocytes % (Manual) (13.4-35.0) % Lymphocytes # (Manual) (1.2-5.4) K/mm3 D-Dimer (0-234) ng/mlDDU Sodium (137-145) mmol/L Potassium (3.6-5.0) mmol/L Chloride (98-107) mmol/L Carbon Dioxide (22-30) mmol/L BUN (7-17) mg/dL Creatinine (0.6-1.2) mg/dL Glucose (65-100) mg/dL Lactic Acid 4.40 H* (0.7-2.0) mmol/L Calcium (8.4-10.2) mg/dL Ferritin (10.0-200.0) ng/mL AST (5-40) units/L Lactate Dehydrogenase 322 H (91-180) units/L C-Reactive Protein 22.30 H (0.00-1.30) mg/dL NT-Pro-B Natriuret Pep (0-900) pg/mL Albumin (3.9-5) g/dL Urine WBC (Auto) 18.0 H (0.0-6.0) /HPF 04/06/21 04/07/21 04/07/21 Range/Units 23:20 04:31 04:31 WBC (4.5-11.0) K/mm3 Plt Count 61 L (140-440) K/mm3 Seg Neuts % (Manual) (40.0-70.0) % Lymphocytes % (Manual) 1.0 L (13.4-35.0) % Lymphocytes # (Manual) 0.0 L (1.2-5.4) K/mm3 D-Dimer (0-234) ng/mlDDU Sodium (137-145) mmol/L Potassium 3.2 L (3.6-5.0) mmol/L Chloride 108.4 H (98-107) mmol/L Carbon Dioxide 18 L (22-30) mmol/L BUN (7-17) mg/dL Creatinine 0.5 L D (0.6-1.2) mg/dL Glucose 120 H (65-100) mg/dL Lactic Acid (0.7-2.0) mmol/L Calcium 8.1 L D (8.4-10.2) mg/dL Ferritin 660.2 H (10.0-200.0) ng/mL AST (5-40) units/L Lactate Dehydrogenase (91-180) units/L C-Reactive Protein (0.00-1.30) mg/dL NT-Pro-B Natriuret Pep (0-900) pg/mL Albumin (3.9-5) g/dL Urine WBC (Auto) (0.0-6.0) /HPF 04/07/21 Range/Units 04:31 WBC (4.5-11.0) K/mm3 Plt Count (140-440) K/mm3 Seg Neuts % (Manual) (40.0-70.0) % Lymphocytes % (Manual) (13.4-35.0) % Lymphocytes # (Manual) (1.2-5.4) K/mm3 D-Dimer (0-234) ng/mlDDU Sodium (137-145) mmol/L Potassium (3.6-5.0) mmol/L Chloride (98-107) mmol/L Carbon Dioxide (22-30) mmol/L BUN (7-17) mg/dL Creatinine (0.6-1.2) mg/dL Glucose (65-100) mg/dL Lactic Acid 2.40 H* (0.7-2.0) mmol/L Calcium (8.4-10.2) mg/dL Ferritin (10.0-200.0) ng/mL AST (5-40) units/L Lactate Dehydrogenase (91-180) units/L C-Reactive Protein (0.00-1.30) mg/dL NT-Pro-B Natriuret Pep (0-900) pg/mL Albumin (3.9-5) g/dL Urine WBC (Auto) (0.0-6.0) /HPF Assessment and Plan Cultures: SARS-CoV-2 PCR negative. Blood culture 04/06/2021 with GPC in chains 4 out of 4 bottles. Urine culture 04/06/2021 no growth. Assessment: 61-year-old female with no past medical history admitted on 04/06/2021 secondary to few days of weakness, poor appetite and a fall at home complaining of right leg pain: #Severe sepsis: present on admission with fever, neutropenia, elevated lactate; source GPC bacteremia. CRP 22. Procalcitonin 8.6. #GPC bacteremia: Possibly from UTI vs infected cervical mass. #Bilateral pneumonia: CTA without PE, reticular airspace disease in the bases, mediastinal lymphadenopathies. SARS neg. ?lung emboli. Should rule out endocarditis. #UTI: Urinalysis with 18 WBCs and trace leukocyte esterase. #Elevated LFTs: due to sepsis #Neutropenia/thrombocytopenia: due to sepsis vs malignancy. #Cervical mass: ? cancer Recommendations: - LASER/ELECTRO OPTICS TECHNICIAN consult - RUQ US rule out cholecystitis (tender right upper quadrant on exam) - Continue vancomycin with PK consult - Continue ceftriaxone and azithromycin - Repeat blood cultures tomorrow - Obtain transthoracic echo to rule out endocarditis Will follow. Xiao Badillo MD Infectious Diseases [place] [employer] [facility], [facility] ([facility]) M [phone] O [phone]
--- NOTE | 2021-04-07 14:55 | Event Note ---
<YESENIA DRAPER - Last Filed: 04/07/21 14:43> Date: 04/07/21 Patient's family members are at the bedside, the patient's , daughter, and sister. They were updated on patient's status and condition. Per christiano's , patient was hospitalized over 10 years ago at [facility] where they remove some fibroids and found scaring on patient's lungs which they ruled out for tuberculosis. However patient was never on any TB meds. All questions an concerns were voiced at this time. Team will continue to f/u with further updates. Updated contact for patient Barron Ramos- Hilda Choudhury- Daughter <ARELIS PINA - Last Filed: 04/08/21 09:29> I saw and evaluated the patient. Discussed with the nurse practitioner and agree with their findings and plan as documented in this note.
--- NOTE | 2021-04-07 15:23 | Consultation ---
History of Present Illness Consult date: 04/07/21 Requesting physician: SURYA WARD Reason for consult: other (Septic Shock) History of present illness: PULMONARY/CCM CONSULT NOTE (Full dictation # ) Please see dictated notes for full details Past History Past Medical History: No medical history Past Surgical History: No surgical history Social history: no significant social history Family history: no significant family history Medications and Allergies Allergies Allergy/AdvReac Type Severity Reaction Status Date / Time No Known Allergies Allergy Unverified 04/06/21 17:27 Active Meds: Active Medications Acetaminophen (Acetaminophen 325 Mg Tab) 650 mg PO Q6H PRN PRN Reason: Pain MILD(1-3)/Fever >100.5/VILLANUEVA Famotidine (Famotidine 20 Mg Tab) 20 mg PO BID MICHELLE Sodium Chloride (Nacl 0.9% 1000 Ml) 1,000 mls @ 125 mls/hr IV DIRECT MICHELLE Last Admin: 04/07/21 02:06 Dose: 125 mls/hr Documented by: Ceftriaxone Sodium (Rocephin/Ns 2 Gm/100 Ml) 2 gm in 100 mls @ 200 mls/hr IV Q24HR@2200 MICHELLE; Protocol Last Admin: 04/07/21 02:06 Dose: 200 mls/hr Documented by: Azithromycin (Zithromax/Ns) 500 mg in 250 mls @ 250 mls/hr IV Q24HR@2200 MICHELLE; Protocol Last Admin: 04/07/21 04:02 Dose: 250 mls/hr Documented by: NORepinephrine/NS 8 MG-250 ML (Norepinephrine/Ns 8 Mg-250 Ml (Double Conc)) 8 mg in 250 mls @ 3.75 mls/hr IV TITRATE MICHELLE; Protocol Last Titration: 04/07/21 03:30 Dose: 0 mcg/min, 0 mls/hr Documented by: Vancomycin HCl (Vancomycin/Ns 1 Gm/250 Ml) 1 gm in 250 mls @ 167.007 mls/hr IV Q12H MICHELLE Magnesium Hydroxide (Magnesium Hydroxide (Mom) Oral Liqd Udc) 30 ml PO Q4H PRN PRN Reason: Constipation Morphine Sulfate (Morphine 2 Mg/1 Ml Inj) 2 mg IV Q4H PRN PRN Reason: Pain, Moderate (4-6) Morphine Sulfate (Morphine 4 Mg/1 Ml Inj) 4 mg IV Q4H PRN PRN Reason: Pain , Severe (7-10) Ondansetron HCl (Ondansetron 4 Mg/2 Ml Inj) 4 mg IV Q8H PRN PRN Reason: Nausea And Vomiting Senna (Sennosides 8.6 Mg Tab) 8.6 mg PO QHS MICHELLE Sodium Chloride (Sodium Chloride 0.9% 10 Ml Flush Syringe) 10 ml IV BID MICHELLE Sodium Chloride (Sodium Chloride 0.9% 10 Ml Flush Syringe) 10 ml IV PRN PRN PRN Reason: LINE FLUSH Physical Examination Vital signs: Vital Signs Pulse Resp BP Pulse Ox 134 H 20 85/50 98 04/06/21 17:04 04/06/21 17:04 04/06/21 17:04 04/06/21 17:04 Results - Laboratory Findings CBC and BMP: 04/07/21 04:31 04/07/21 04:31 PT/INR, D-dimer D-Dimer > 44619 ng/mlDDU (0-234) H 04/06/21 17:29 Abnormal lab findings: Abnormal Labs 04/06/21 04/06/21 04/06/21 17:29 17:29 17:29 WBC 3.0 L Plt Count 91 L Seg Neuts % (Manual) 96.0 H Lymphocytes % (Manual) 4.0 L Lymphocytes # (Manual) 0.1 L D-Dimer > 19552 H Sodium 131 L Potassium 3.2 L Chloride 96.0 L Carbon Dioxide 20 L BUN 22 H Creatinine Glucose 129 H Lactic Acid Calcium Ferritin AST 70 H Lactate Dehydrogenase C-Reactive Protein NT-Pro-B Natriuret Pep Albumin 3.7 L Urine WBC (Auto) 04/06/21 04/06/21 04/06/21 17:29 21:27 21:27 WBC Plt Count Seg Neuts % (Manual) Lymphocytes % (Manual) Lymphocytes # (Manual) D-Dimer Sodium Potassium Chloride Carbon Dioxide BUN Creatinine Glucose Lactic Acid 4.00 H* 3.60 H* Calcium Ferritin AST Lactate Dehydrogenase C-Reactive Protein NT-Pro-B Natriuret Pep 1182 H Albumin Urine WBC (Auto) 04/06/21 04/06/21 04/06/21 21:37 23:20 23:20 WBC Plt Count Seg Neuts % (Manual) Lymphocytes % (Manual) Lymphocytes # (Manual) D-Dimer Sodium Potassium Chloride Carbon Dioxide BUN Creatinine Glucose Lactic Acid 4.40 H* Calcium Ferritin AST Lactate Dehydrogenase 322 H C-Reactive Protein 22.30 H NT-Pro-B Natriuret Pep Albumin Urine WBC (Auto) 18.0 H 04/06/21 04/07/21 04/07/21 23:20 04:31 04:31 WBC Plt Count 61 L Seg Neuts % (Manual) Lymphocytes % (Manual) 1.0 L Lymphocytes # (Manual) 0.0 L D-Dimer Sodium Potassium 3.2 L Chloride 108.4 H Carbon Dioxide 18 L BUN Creatinine 0.5 L D Glucose 120 H Lactic Acid Calcium 8.1 L D Ferritin 660.2 H AST Lactate Dehydrogenase C-Reactive Protein NT-Pro-B Natriuret Pep Albumin Urine WBC (Auto) 04/07/21 04:31 WBC Plt Count Seg Neuts % (Manual) Lymphocytes % (Manual) Lymphocytes # (Manual) D-Dimer Sodium Potassium Chloride Carbon Dioxide BUN Creatinine Glucose Lactic Acid 2.40 H* Calcium Ferritin AST Lactate Dehydrogenase C-Reactive Protein NT-Pro-B Natriuret Pep Albumin Urine WBC (Auto)
[2021-04-07] MEDS: traMADol 50 MG TAB PO PRN ×2 (15:54→21:16)
[2021-04-07] MEDS: FAMOTIDINE 20 MG TAB PO SCH (21:16)
[2021-04-07] MEDS: SENNOSIDES 8.6 MG TAB PO SCH (21:16)
[2021-04-07] MEDS: ACETAMINOPHEN 325 MG TAB PO PRN (21:36)
[2021-04-08] MEDS: VANCOMYCIN/NS 1 GM/250 ML 1 GM/250 ML BAG IV SCH (00:12)
[2021-04-08 06:33] LABS: Hematocrit 36.1 % (30.3-42.9); Hemoglobin 11.5 gm/dl (10.1-14.3); Mean Corpuscular HGB Conc 32 % (30-34); Mean Corpuscular Volume 89 fl (79-97); Red Blood Count 4.05 M/mm3 (3.65-5.03); Red Cell Distribution Width 13.9 % (13.2-15.2)
[2021-04-08 06:46] LABS: Blood Urea Nitrogen 12 mg/dL (7-17); Calcium 9.3 mg/dL (8.4-10.2); Hemolysis Index 2; Platelet Count 57 K/mm3 (140-440)
[2021-04-08 06:53] LABS: BUN/Creatinine Ratio 24
[2021-04-08] MEDS: SODIUM CHLORIDE 0.9% 1000 ML 1,000 ML IV SCH (08:40)
--- NOTE | 2021-04-08 09:47 | Progress Note ---
Assessment and Plan #Septic Shock 2/2 GPC bacteremia -CRP 22. Procalcitonin 8.6. #Acute Metabolic Encephalopathy-resolved #Cervical and vaginal wall thickening #Thrombocytopenia #Leukopenia #Multifocal infiltrates- possible pneumonia, septic emboli #Urinary Tract Infection (UTI) -Off vasopressor support with acceptable blood pressure -Continue broad spectrum antibiotics fro now, de-escalate based on culture data -Get transthoracic echocardiogram to evaluate for vegetations -Patient is s/p hysterectomy. WAIST FITTER to evaluate the cervical mass -SCDs for VTE prophylaxis -Replace electrolytes as clinically indicated -Repeat blood cultures -PT/OT, increase activity and ambulation -Can transfer out of the ICU if she remains hemodynamically normal. Discussed with primary service Subjective Date of service: 04/08/21 Interval history: This is a 61-year-old female with no significant past medical history who presented s/o fall at home complaining on right leg pain and progressive loss of appetite over the past few days. Patient was admitted for Septic shock probably due to PNA/COVID PUI vs UTI required vasopressor support. Imaging also revealed abnormal mass-like thickening of the cervix and vagina, concern for malignancy Patient seen and examined. Vitals, labs, medications, chart and imaging reviewed. No adverse overnight events. No chills, no fevers, no nausea or vomiting. She endorses history of dyspareunia but denies any vaginal bleeding Has been off vasopressor support. Objective Vital Signs - 12hr 04/07/21 04/07/21 04/07/21 22:00 22:30 23:00 Temperature Pulse Rate 131 H 128 H 128 H Pulse Rate [ From Monitor] Respiratory 21 21 16 Rate Blood Pressure 151/85 133/80 118/70 O2 Sat by Pulse 99 96 96 Oximetry 04/07/21 04/08/21 04/08/21 23:30 00:00 00:08 Temperature 100.6 F H Pulse Rate 126 H 125 H 125 H Pulse Rate [ From Monitor] Respiratory 15 18 15 Rate Blood Pressure 113/66 121/72 121/72 O2 Sat by Pulse 96 96 98 Oximetry 04/08/21 04/08/21 04/08/21 01:00 01:30 02:00 Temperature Pulse Rate 117 H 120 H 115 H Pulse Rate [ From Monitor] Respiratory 14 13 13 Rate Blood Pressure 115/68 115/68 118/69 O2 Sat by Pulse 97 99 95 Oximetry 04/08/21 04/08/21 04/08/21 02:30 03:00 03:30 Temperature Pulse Rate 109 H 113 H 107 H Pulse Rate [ From Monitor] Respiratory 13 13 14 Rate Blood Pressure 112/71 106/67 104/69 O2 Sat by Pulse 98 98 99 Oximetry 04/08/21 04/08/21 04/08/21 03:43 04:00 04:30 Temperature 99.4 F Pulse Rate 106 H 104 H Pulse Rate [ From Monitor] Respiratory 13 12 Rate Blood Pressure 114/71 113/72 O2 Sat by Pulse 97 98 Oximetry 04/08/21 04/08/21 04/08/21 05:00 05:30 06:00 Temperature Pulse Rate 106 H 105 H 111 H Pulse Rate [ From Monitor] Respiratory 15 12 19 Rate Blood Pressure 108/71 118/71 127/74 O2 Sat by Pulse 97 98 99 Oximetry 04/08/21 04/08/21 04/08/21 06:30 07:00 07:30 Temperature Pulse Rate 106 H 101 H 103 H Pulse Rate [ From Monitor] Respiratory 15 11 L 11 L Rate Blood Pressure 124/75 120/77 108/78 O2 Sat by Pulse 100 100 100 Oximetry 04/08/21 04/08/21 04/08/21 08:00 08:30 08:37 Temperature Pulse Rate 101 H 99 H Pulse Rate [ 100 H From Monitor] Respiratory 13 13 12 Rate Blood Pressure 120/84 129/76 O2 Sat by Pulse 99 99 100 Oximetry Constitutional: no acute distress, alert Eyes: non-icteric ENT: oropharynx moist Neck: supple, no lymphadenopathy Effort: normal Ascultation: Bilateral: clear Cardiovascular: regular rate and rhythm, other (S1,S2) Gastrointestinal: normoactive bowel sounds, soft, non-tender, non-distended Integumentary: normal Extremities: no cyanosis, no edema, pink and warm, pulses normal Neurologic: normal mental status, non-focal exam, pupils equal and round, motor strength normal and Psychiatric: mood appropriate, affect normal CBC and BMP: 04/08/21 05:58 04/08/21 05:58 ABG, PT/INR, D-dimer: PT/INR, D-dimer D-Dimer > 54390 ng/mlDDU (0-234) H 04/06/21 17:29 Abnormal lab findings: Abnormal Labs 04/06/21 04/06/21 04/06/21 17:29 17:29 17:29 WBC 3.0 L Plt Count 91 L Seg Neuts % (Manual) 96.0 H Lymphocytes % (Manual) 4.0 L Lymphocytes # (Manual) 0.1 L D-Dimer > 55915 H Sodium 131 L Potassium 3.2 L Chloride 96.0 L Carbon Dioxide 20 L BUN 22 H Creatinine Glucose 129 H Lactic Acid Calcium Phosphorus Ferritin AST 70 H Lactate Dehydrogenase C-Reactive Protein NT-Pro-B Natriuret Pep Albumin 3.7 L Urine WBC (Auto) 04/06/21 04/06/21 04/06/21 17:29 21:27 21:27 WBC Plt Count Seg Neuts % (Manual) Lymphocytes % (Manual) Lymphocytes # (Manual) D-Dimer Sodium Potassium Chloride Carbon Dioxide BUN Creatinine Glucose Lactic Acid 4.00 H* 3.60 H* Calcium Phosphorus Ferritin AST Lactate Dehydrogenase C-Reactive Protein NT-Pro-B Natriuret Pep 1182 H Albumin Urine WBC (Auto) 04/06/21 04/06/21 04/06/21 21:37 23:20 23:20 WBC Plt Count Seg Neuts % (Manual) Lymphocytes % (Manual) Lymphocytes # (Manual) D-Dimer Sodium Potassium Chloride Carbon Dioxide BUN Creatinine Glucose Lactic Acid 4.40 H* Calcium Phosphorus Ferritin AST Lactate Dehydrogenase 322 H C-Reactive Protein 22.30 H NT-Pro-B Natriuret Pep Albumin Urine WBC (Auto) 18.0 H 04/06/21 04/07/21 04/07/21 23:20 04:31 04:31 WBC Plt Count 61 L Seg Neuts % (Manual) Lymphocytes % (Manual) 1.0 L Lymphocytes # (Manual) 0.0 L D-Dimer Sodium Potassium 3.2 L Chloride 108.4 H Carbon Dioxide 18 L BUN Creatinine 0.5 L D Glucose 120 H Lactic Acid Calcium 8.1 L D Phosphorus Ferritin 660.2 H AST Lactate Dehydrogenase C-Reactive Protein NT-Pro-B Natriuret Pep Albumin Urine WBC (Auto) 04/07/21 04/08/21 04/08/21 04:31 05:58 05:58 WBC Plt Count 57 L Seg Neuts % (Manual) Lymphocytes % (Manual) Lymphocytes # (Manual) D-Dimer Sodium 134 L Potassium 3.5 L Chloride Carbon Dioxide 18 L BUN Creatinine 0.5 L Glucose 112 H Lactic Acid 2.40 H* Calcium Phosphorus 1.70 L Ferritin AST Lactate Dehydrogenase C-Reactive Protein NT-Pro-B Natriuret Pep Albumin Urine WBC (Auto) Chest x-ray: image reviewed Allied health notes reviewed: nursing
[2021-04-08] MEDS ORDERED: MAGNESIUM SULFATE 2 GM/50 ML BAG IV ONE (10:00)
--- NOTE | 2021-04-08 10:04 | Hem/Onc Consultation ---
History of Present Illness - Reason for Consult Consult date: 04/08/21 thrombocytopenia - History of Present Illness HEME CONSULT televisit via [employer] Dx: Thrombocytopenia 61yo woman from [facility] with several days R leg pain ory presenting to the emergency room with right leg pain s post recent fall and injured head, appearing confused as per family noted to have low platelet count low WBC-->improved over a few days, with left shift, bands DATA REVIEWED BELOW IMP: Thrombocytopenia due to infection she may have underlying chronic ITP doubt heme malignancy REC/PLAN: AM labs to include CBC with diff, coags, fibrinogen Transfuse 1 dose of platelets whenever <20 Chest x-ray, x-ray of the tibia and fibula of the right lower extremity, right femur were unremarkable CT angiogram shows no evidence of pulmonary embolism There is mild reticular/airspace opacities within the lung bases, may reflect atelectasis or developing pneumonia Multiple mildly enlarged mediastinal lymph nodes are presumably reactive CT of the abdomen and pelvis reveals: 1. Abnormal masslike thickening of the cervix and vagina. Malignancy is the diagnosis of exclusion. Recommend gynecology consultation. 2. Mildly enlarged left inguinal lymph node is nonspecific. Recommend follow- up. Laboratory Last Values WBC 7.3 K/mm3 (4.5-11.0) 04/08/21 05:58 Hgb 11.5 gm/dl (10.1-14.3) 04/08/21 05:58 Hct 36.1 % (30.3-42.9) 04/08/21 05:58 Plt Count 57 K/mm3 (140-440) L 04/08/21 05:58 D-Dimer > 79250 ng/mlDDU (0-234) H 04/06/21 17:29 Sodium 134 mmol/L (137-145) L 04/08/21 05:58 Potassium 3.5 mmol/L (3.6-5.0) L 04/08/21 05:58 Chloride 106.2 mmol/L (98-107) 04/08/21 05:58 Carbon Dioxide 18 mmol/L (22-30) L 04/08/21 05:58 Anion Gap 13 mmol/L 04/08/21 05:58 BUN 12 mg/dL (7-17) 04/08/21 05:58 Creatinine 0.5 mg/dL (0.6-1.2) L 04/08/21 05:58 Estimated GFR > 60 ml/min 04/08/21 05:58 BUN/Creatinine Ratio 24 % 04/08/21 05:58 Glucose 112 mg/dL (65-100) H 04/08/21 05:58 Lactic Acid 1.50 mmol/L (0.7-2.0) 04/08/21 05:58 Calcium 9.3 mg/dL (8.4-10.2) 04/08/21 05:58 Phosphorus 1.70 mg/dL (2.5-4.5) L 04/08/21 05:58 Magnesium 1.80 mg/dL (1.7-2.3) 04/08/21 05:58 Ferritin 660.2 ng/mL (10.0-200.0) H 04/06/21 23:20 Total Bilirubin 1.20 mg/dL (0.1-1.2) 04/06/21 17:29 AST 70 units/L (5-40) H 04/06/21 17:29 ALT 46 units/L (7-56) 04/06/21 17:29 Alkaline Phosphatase 94 units/L (35-129) 04/06/21 17:29 Lactate Dehydrogenase 322 units/L (91-180) H 04/06/21 23:20 Troponin T < 0.010 ng/mL (0.00-0.029) 04/06/21 21:27 C-Reactive Protein 22.30 mg/dL (0.00-1.30) H 04/06/21 23:20 Procalcitonin 8.61 ng/mL (<0.15) 04/06/21 23:20 Coronavirus (PCR) Negative (Negative) 04/07/21 09:05 Past History Past Medical History: No medical history Past Surgical History: No surgical history Social history: no significant social history Family history: no significant family history Medications and Allergies Allergies Allergy/AdvReac Type Severity Reaction Status Date / Time No Known Allergies Allergy Unverified 04/06/21 17:27 Active Meds: Active Medications Acetaminophen (Acetaminophen 325 Mg Tab) 650 mg PO Q6H PRN PRN Reason: Pain MILD(1-3)/Fever >100.5/[place] Last Admin: 04/07/21 21:36 Dose: 650 mg Documented by: Famotidine (Famotidine 20 Mg Tab) 20 mg PO BID [facility] Last Admin: 04/07/21 21:16 Dose: 20 mg Documented by: Sodium Chloride (Nacl 0.9% 1000 Ml) 1,000 mls @ 125 mls/hr IV DIRECT [facility] Last Admin: 04/08/21 08:40 Dose: 125 mls/hr Documented by: Ceftriaxone Sodium (Rocephin/Ns 2 Gm/100 Ml) 2 gm in 100 mls @ 200 mls/hr IV Q24HR@2200 MICHELLE; Protocol Last Admin: 04/07/21 21:16 Dose: 200 mls/hr Documented by: Azithromycin (Zithromax/Ns) 500 mg in 250 mls @ 250 mls/hr IV Q24HR@2200 MICHELLE; Protocol Last Admin: 04/07/21 22:05 Dose: 250 mls/hr Documented by: NORepinephrine/NS 8 MG-250 ML (Norepinephrine/Ns 8 Mg-250 Ml (Double Conc)) 8 mg in 250 mls @ 3.75 mls/hr IV TITRATE [facility]; Protocol Last Titration: 04/07/21 03:30 Dose: 0 mcg/min, 0 mls/hr Documented by: Vancomycin HCl (Vancomycin/Ns 1 Gm/250 Ml) 1 gm in 250 mls @ 167.007 mls/hr IV Q12H [facility] Last Admin: 04/08/21 00:12 Dose: 167.007 mls/hr Documented by: Magnesium Sulfate (Magnesium Sulfate 2gm/50ml) 2 gm in 50 mls @ 25 mls/hr IV ONCE@1000 ONE Stop: 04/08/21 11:59 Magnesium Hydroxide (Magnesium Hydroxide (Mom) Oral Liqd Ud) 30 ml PO Q4H PRN PRN Reason: Constipation Ondansetron HCl (Ondansetron 4 Mg/2 Ml Inj) 4 mg IV Q8H PRN PRN Reason: Nausea And Vomiting Senna (Sennosides 8.6 Mg Tab) 8.6 mg PO QHS [facility] Last Admin: 04/07/21 21:16 Dose: 8.6 mg Documented by: Sodium Chloride (Sodium Chloride 0.9% 10 Ml Flush Syringe) 10 ml IV BID [facility] Last Admin: 04/07/21 21:17 Dose: 10 ml Documented by: Sodium Chloride (Sodium Chloride 0.9% 10 Ml Flush Syringe) 10 ml IV PRN PRN PRN Reason: LINE FLUSH Sodium Phosphate (K-Phos Neutral 250 Mg Tab) 250 mg PO QID MICHELLE Stop: 04/08/21 22:01 Tramadol HCl (Tramadol 50 Mg Tab) 50 mg PO Q6H PRN PRN Reason: Pain, Moderate (4-6) Last Admin: 04/07/21 21:16 Dose: 50 mg Documented by: Exam - Constitutional Vitals: Last Vital Signs Temp 99.4 F 04/08/21 03:43 Pulse 100 H 04/08/21 08:37 Resp 12 04/08/21 08:37 BP 129/76 04/08/21 08:30 Pulse Ox 100 04/08/21 08:37 Results - Labs lab Results: Laboratory Results - last 24 hr 04/06/21 04/07/21 04/08/21 23:20 09:05 05:58 WBC RBC Hgb Hct MCV MCH MCHC RDW Plt Count Sodium Potassium Chloride Carbon Dioxide Anion Gap BUN Creatinine Estimated GFR BUN/Creatinine Ratio Glucose Lactic Acid 1.50 Calcium Phosphorus Magnesium Procalcitonin 8.61 Coronavirus (PCR) Negative 04/08/21 04/08/21 05:58 05:58 WBC 7.3 RBC 4.05 Hgb 11.5 Hct 36.1 MCV 89 MCH 28 MCHC 32 RDW 13.9 Plt Count 57 L Sodium 134 L Potassium 3.5 L Chloride 106.2 Carbon Dioxide 18 L Anion Gap 13 BUN 12 Creatinine 0.5 L Estimated GFR > 60 BUN/Creatinine Ratio 24 Glucose 112 H Lactic Acid Calcium 9.3 Phosphorus 1.70 L Magnesium 1.80 Procalcitonin Coronavirus (PCR)
--- NOTE | 2021-04-08 10:27 | Ultrasound Report ---
ULTRASOUND ABDOMEN, LIMITED (RIGHT UPPER QUADRANT) INDICATION / CLINICAL INFORMATION: eval for cholecystitis. COMPARISON: None available. FINDINGS: PANCREAS: Visualized portion shows no significant abnormality. LIVER: No significant abnormality. GALLBLADDER: No significant abnormality. BILE DUCTS: No significant abnormality. Common bile duct measures 2 mm. FREE FLUID: None. ADDITIONAL FINDINGS: None. IMPRESSION: 1. No significant sonographic abnormality of the right upper quadrant. Specifically, no sonographic e vidence of acute cholecystitis. Signer Name: Miguelangel White MD Signed: 04/08/2021 10:22 AM Workstation Name: [id number]
--- NOTE | 2021-04-08 12:05 | Progress Note ---
<YESENIA DRAPER - Last Filed: 04/08/21 15:56> Assessment and Plan Assessment and plan: This is a 61-year-old female with no significant past medical history who presented s/o fall at home complaining on right leg pain and progressive loss of appetite over the past few days. Patient was admitted for Septic shock probably due to PNA/COVID PUI vs UTI required pressors. Imagings also revealed abnormal masslike thickening of the cervix and vagina, concern for malignancy, RN POST PARTUM and Hem consulted. Hospital Course to Date: 04/07/21- Patient is off pressors this am, on RA, alert but still confused. Still tachycardic this am, remains afebrile overnight, leukopenia improved, COVID swab pending. Will continue current IVF and IV Abx, ID consult pending. Worsen thrombocytopenia this am, no s/s of any bleeding, H&H is stable HEME consult pending. SCDs ordered for VTE proph. Electrolytes repleted. Will continue to trend lactic acid, CBC, and BMP. 04/08/21- Patient remains stable, on RA, more awake and alert this am. Remains febrile overnight, blood culture growing 4 out GPC in pairs and chains, continue current IV Abx, ID on consult. 2D echo also ordered to r/o endocarditis. D/W CCM patient is stable for transfer to the floor. Assessment and Plan #Acute Metabolic Encephalopathy - Probably due infectious process - 04/06 CT head with no acute intracranial abnormality - Patient is AAO this am - Fell at home - Imagings with no evidence of fractures - Avoid benzodiazepine to reduce the possibility of delirium - Prn analgesia for pain management - Maintenance of sleep-wake cycle - Fall precaution #Septic Shock #Hypotension- resolved #Tachycardia- improved - Presented with low BP and ST - Patient remains ST on the monitor - s/p over 4L NS bolus - No longer on pressors - Maintain adequate perfusion - Continue rehydration with cont. IVF - Continue blood pressure monitor per protocol - Maintain MAP above 65 - SCDs for VTE proph #GI: Poor Oral Intake - Patient c/o of poor appetite - Nutrition consulted - PPI added - Continue BR #Hypokalemia #Hypophosphatemia - K, mag, and phosp repleted - continue to trend BMP, mag, and phosp - Strict intake and output - Avoid nephrotoxic medications; Renally dose medications - Continue IVF for now - Monitor and replace electrolytes as needed #Cervical Mass #Thrombocytopenia #Leukopenia - 04/06 CT abd/pelvis showed abnormal masslike thickening of the cervix and vagina with mildly enlarged left inguinal lymph node. Concern for Malignancy - Plt continue to drop, 61 this am - Presented with low WBCs - elevated inflammatory markers - RN POST PARTUM consulted - HEME consulted - NO AC at this time - BLE doppler neg for DVT - SCDs to bilateral lower extremities while in bed - Continue to trend CBC #Septic shock #Multifocal pneumonia #Urinary Tract Infection (UTI) #COVID PUI #Lactic Acidosis - lactic as high as 4.4 - 04/06 CTA chest: Neg PE, with mild reticular/airspace opacities within the lung bases, may reflect atelectasis or developing pneumonia - 04/06 Urinalysis shows trace of leukocyte esterase, 18 WBC - Patient is afebrile - Elevated inflammatory markers - COVID swab pending - CRP 22.30, Proc 8.61 - B.cultX2 4out4 GPC in pairs and chairs, urine culture pending - 2D echo ordered to r/o endocarditis - Continue empiric ABx - Continue to F/U on B.cult - Daily CBC monitor - ID consulted The high probability of a clinically significant, sudden or life threatening deterioration of the [multiple] system(s) required my full and direct attention, intervention and personal management. The aggregate critical care time was [60] minutes. This time is in addition to time spent performing reported procedures but includes the following: [x] Data Review and interpretation [x] Patient assessment and monitoring of vital signs [x] Documentation [x] Medication orders and management Disposition Plan: ICU Total Time Spent with Patient (Minutes): 60 History Interval history: Patient seen and examined at the bedside. Patient is fully AAO this am, on RA, c/o of BLE pain that is control with current pain regimen. Afebrile overnight on IV Abx and cont. IVF Hospitalist Physical - Constitutional Vitals: Temp Pulse Resp BP Pulse Ox 97.7 F 113 H 17 131/96 100 04/08/21 08:00 04/08/21 11:00 04/08/21 11:00 04/08/21 11:00 04/08/21 11:00 General appearance: Present: no acute distress, well-nourished - EENT Eyes: Present: PERRL ENT: hearing intact, clear oral mucosa - Neck Neck: Present: normal ROM - Respiratory Respiratory effort: normal Respiratory: bilateral: diminished - Cardiovascular Rhythm: regular Heart Sounds: Present: S1 & S2 - Extremities Extremities: no ischemia, pulses intact, pulses symmetrical Peripheral Pulses: within normal limits - Abdominal General gastrointestinal: soft, non-tender, normal bowel sounds - Integumentary Integumentary: Present: clear, warm, dry - Psychiatric Psychiatric: appropriate mood/affect, cooperative - Neurologic Neurologic: CNII-XII intact, moves all extremities - Allied Health Allied health notes reviewed: nursing HEART Score - HEART Score Troponin: Troponin T < 0.010 ng/mL (0.00-0.029) 04/06/21 21:27 Results - Labs CBC & Chem 7: 04/08/21 05:58 04/08/21 05:58 Labs: Laboratory Last Values WBC 7.3 K/mm3 (4.5-11.0) 04/08/21 05:58 RBC 4.05 M/mm3 (3.65-5.03) 04/08/21 05:58 Hgb 11.5 gm/dl (10.1-14.3) 04/08/21 05:58 Hct 36.1 % (30.3-42.9) 04/08/21 05:58 MCV 89 fl (79-97) 04/08/21 05:58 MCH 28 pg (28-32) 04/08/21 05:58 MCHC 32 % (30-34) 04/08/21 05:58 RDW 13.9 % (13.2-15.2) 04/08/21 05:58 Plt Count 57 K/mm3 (140-440) L 04/08/21 05:58 Add Manual Diff Complete 04/07/21 04:31 Total Counted 100 04/07/21 04:31 Seg Neutrophils % [employer] 04/07/21 04:31 Seg Neuts % (Manual) 45.0 % (40.0-70.0) 04/07/21 04:31 Band Neutrophils % 50.0 % 04/07/21 04:31 Lymphocytes % (Manual) 1.0 % (13.4-35.0) L 04/07/21 04:31 Monocytes % (Manual) 1.0 % (0.0-7.3) 04/07/21 04:31 Metamyelocytes % 3.0 % 04/07/21 04:31 Nucleated RBC % Not Reportable 04/07/21 04:31 Seg Neutrophils # Man 2.1 K/mm3 (1.8-7.7) 04/07/21 04:31 Band Neutrophils # 2.4 K/mm3 04/07/21 04:31 Lymphocytes # (Manual) 0.0 K/mm3 (1.2-5.4) L 04/07/21 04:31 Abs React Lymphs (Man) 0.0 K/mm3 04/07/21 04:31 Monocytes # (Manual) 0.0 K/mm3 (0.0-0.8) 04/07/21 04:31 Eosinophils # (Manual) 0.0 K/mm3 (0.0-0.4) 04/07/21 04:31 Basophils # (Manual) 0.0 K/mm3 (0.0-0.1) 04/07/21 04:31 Metamyelocytes # 0.1 K/mm3 04/07/21 04:31 Myelocytes # 0.0 K/mm3 04/07/21 04:31 Promyelocytes # 0.0 K/mm3 04/07/21 04:31 Blast Cells # 0.0 K/mm3 04/07/21 04:31 WBC Morphology Not Reportable 04/07/21 04:31 Hypersegmented Neuts Not Reportable 04/07/21 04:31 Hyposegmented Neuts Not Reportable 04/07/21 04:31 Hypogranular Neuts Not Reportable 04/07/21 04:31 Smudge Cells Not Reportable 04/07/21 04:31 Toxic Granulation Not Reportable 04/07/21 04:31 Toxic Vacuolation Not Reportable 04/07/21 04:31 Dohle Bodies Not Reportable 04/07/21 04:31 Pelger-Huet Anomaly Not Reportable 04/07/21 04:31 Rafal Rods Not Reportable 04/07/21 04:31 Platelet Estimate Consistent w auto 04/07/21 04:31 Clumped Platelets Not Reportable 04/07/21 04:31 Plt Clumps, EDTA Not Reportable 04/07/21 04:31 Large Platelets Not Reportable 04/07/21 04:31 Giant Platelets Not Reportable 04/07/21 04:31 Platelet Satelliting Not Reportable 04/07/21 04:31 Plt Morphology Comment Not Reportable 04/07/21 04:31 RBC Morphology Normal 04/07/21 04:31 Dimorphic RBCs Not Reportable 04/07/21 04:31 Polychromasia Not Reportable 04/07/21 04:31 Hypochromasia Not Reportable 04/07/21 04:31 Poikilocytosis Not Reportable 04/07/21 04:31 Anisocytosis Not Reportable 04/07/21 04:31 Microcytosis Not Reportable 04/07/21 04:31 Macrocytosis Not Reportable 04/07/21 04:31 Spherocytes Not Reportable 04/07/21 04:31 Pappenheimer Bodies Not Reportable 04/07/21 04:31 Sickle Cells Not Reportable 04/07/21 04:31 Target Cells Not Reportable 04/07/21 04:31 Tear Drop Cells Not Reportable 04/07/21 04:31 Ovalocytes Not Reportable 04/07/21 04:31 Helmet Cells Not Reportable 04/07/21 04:31 [place] Bodies Not Reportable 04/07/21 04:31 [place] Rings Not Reportable 04/07/21 04:31 [place] Cells Not Reportable 04/07/21 04:31 Bite Cells Not Reportable 04/07/21 04:31 Crenated Cell Not Reportable 04/07/21 04:31 Elliptocytes Not Reportable 04/07/21 04:31 Acanthocytes (Spur) Not Reportable 04/07/21 04:31 Rouleaux Not Reportable 04/07/21 04:31 Hemoglobin C Crystals Not Reportable 04/07/21 04:31 Schistocytes Not Reportable 04/07/21 04:31 Malaria parasites Not Reportable 04/07/21 04:31 Gaudencio Bodies Not Reportable 04/07/21 04:31 Hem Pathologist Commnt No 04/07/21 04:31 D-Dimer > 66027 ng/mlDDU (0-234) H 04/06/21 17:29 Sodium 134 mmol/L (137-145) L 04/08/21 05:58 Potassium 3.5 mmol/L (3.6-5.0) L 04/08/21 05:58 Chloride 106.2 mmol/L (98-107) 04/08/21 05:58 Carbon Dioxide 18 mmol/L (22-30) L 04/08/21 05:58 Anion Gap 13 mmol/L 04/08/21 05:58 BUN 12 mg/dL (7-17) 04/08/21 05:58 Creatinine 0.5 mg/dL (0.6-1.2) L 04/08/21 05:58 Estimated GFR > 60 ml/min 04/08/21 05:58 BUN/Creatinine Ratio 24 % 04/08/21 05:58 Glucose 112 mg/dL (65-100) H 04/08/21 05:58 Lactic Acid 1.50 mmol/L (0.7-2.0) 04/08/21 05:58 Calcium 9.3 mg/dL (8.4-10.2) 04/08/21 05:58 Phosphorus 1.70 mg/dL (2.5-4.5) L 04/08/21 05:58 Magnesium 1.80 mg/dL (1.7-2.3) 04/08/21 05:58 Ferritin 660.2 ng/mL (10.0-200.0) H 04/06/21 23:20 Total Bilirubin 1.20 mg/dL (0.1-1.2) 04/06/21 17:29 AST 70 units/L (5-40) H 04/06/21 17:29 ALT 46 units/L (7-56) 04/06/21 17:29 Alkaline Phosphatase 94 units/L (35-129) 04/06/21 17:29 Lactate Dehydrogenase 322 units/L (91-180) H 04/06/21 23:20 Troponin T < 0.010 ng/mL (0.00-0.029) 04/06/21 21:27 C-Reactive Protein 22.30 mg/dL (0.00-1.30) H 04/06/21 23:20 NT-Pro-B Natriuret Pep 1182 pg/mL (0-900) H 04/06/21 21:27 Total Protein 6.9 g/dL (6.3-8.2) 04/06/21 17:29 Albumin 3.7 g/dL (3.9-5) L 04/06/21 17:29 Albumin/Globulin Ratio 1.2 % 04/06/21 17:29 Procalcitonin 8.61 ng/mL (<0.15) 04/06/21 23:20 Urine Color Yellow (Yellow) 04/06/21 21:37 Urine Turbidity Slightly-cloudy (Clear) 04/06/21 21:37 Urine pH 5.0 (5.0-7.0) 04/06/21 21:37 Ur Specific [place] 1.014 (1.003-1.030) 04/06/21 21:37 Urine Protein 30 mg/dl mg/dL (Negative) 04/06/21 21:37 Urine Glucose (UA) Neg mg/dL (Negative) 04/06/21 21:37 Urine Ketones Neg mg/dL (Negative) 04/06/21 21:37 Urine Blood Sm (Negative) 04/06/21 21:37 Urine Nitrite Neg (Negative) 04/06/21 21:37 Urine Bilirubin Neg (Negative) 04/06/21 21:37 Urine Urobilinogen < 2.0 mg/dL (<2.0) 04/06/21 21:37 Ur Leukocyte Esterase Tr (Negative) 04/06/21 21:37 Urine WBC (Auto) 18.0 /HPF (0.0-6.0) H 04/06/21 21:37 Urine RBC (Auto) 2.0 /HPF (0.0-6.0) 04/06/21 21:37 U Epithel Cells (Auto) 2.0 /HPF (0-13.0) 04/06/21 21:37 Urine Mucus Few /HPF 04/06/21 21:37 Coronavirus (PCR) Negative (Negative) 04/07/21 09:05 Microbiology: Microbiology 04/06/21 21:37 Urine,Clean Catch Urine Culture - Final 04/06/21 17:29 Peripheral/Venous Blood Culture - Preliminary 04/06/21 17:29 Peripheral/Venous Blood Culture - Preliminary Contreras/IV: Voiding Method External Female Catheter Active Medications - Current Medications Current Medications: Generic Name Dose Route Start Last Admin Trade Name Freq PRN Reason Stop Dose Admin Acetaminophen 650 mg 04/06/21 23:24 04/07/21 21:36 Acetaminophen 325 Mg Tab PO 650 mg Q6H PRN Administration Pain MILD(1-3)/Fever >100.5/VILLANUEVA Famotidine 20 mg 04/07/21 22:00 04/07/21 21:16 Famotidine 20 Mg Tab PO 20 mg BID MICHELLE Administration Sodium Chloride 1,000 mls @ 125 mls/hr 04/06/21 23:30 04/08/21 08:40 Nacl 0.9% 1000 Ml IV 125 mls/hr DIRECT MICHELLE Administration Ceftriaxone Sodium 2 gm in 100 mls @ 200 mls/hr 04/06/21 23:45 04/07/21 21:16 Rocephin/Ns 2 Gm/100 Ml IV 200 mls/hr Q24HR@2200 MICHELLE Administration Protocol Azithromycin 500 mg in 250 mls @ 250 mls/hr 04/06/21 23:45 04/07/21 22:05 Zithromax/Ns IV 250 mls/hr Q24HR@2200 MICHELLE Administration Protocol NORepinephrine/NS 8 MG-250 ML 8 mg in 250 mls @ 3.75 mls/hr 04/07/21 01:00 04/07/21 03:30 Norepinephrine/Ns 8 Mg-250 Ml (Double Conc) IV 0 mcg/min TITRATE MICHELLE 0 mls/hr Titration Protocol 2 MCG/MIN Vancomycin HCl 1 gm in 250 mls @ 167.007 mls/hr 04/07/21 12:00 04/08/21 00:12 Vancomycin/Ns 1 Gm/250 Ml IV 167.007 mls/hr Q12H MICHELLE Administration Magnesium Hydroxide 30 ml 04/06/21 23:24 Magnesium Hydroxide (Mom) Oral Liqd Udc PO Q4H PRN Constipation Ondansetron HCl 4 mg 04/06/21 23:24 Ondansetron 4 Mg/2 Ml Inj IV Q8H PRN Nausea And Vomiting Senna 8.6 mg 04/07/21 22:00 04/07/21 21:16 Sennosides 8.6 Mg Tab PO 8.6 mg QHS MICHELLE Administration Sodium Chloride 10 ml 04/07/21 10:00 04/07/21 21:17 Sodium Chloride 0.9% 10 Ml Flush Syringe IV 10 ml BID MICHELLE Administration Sodium Chloride 10 ml 04/06/21 23:22 Sodium Chloride 0.9% 10 Ml Flush Syringe IV PRN PRN LINE FLUSH Sodium Phosphate 250 mg 04/08/21 10:00 K-Phos Neutral 250 Mg Tab PO 04/08/21 22:01 QID MICHELLE Tramadol HCl 50 mg 04/07/21 15:41 04/07/21 21:16 Tramadol 50 Mg Tab PO 50 mg Q6H PRN Administration Pain, Moderate (4-6) Nutrition/Malnutrition Assess - Dietary Evaluation Nutrition/Malnutrition Findings: Nutrition Notes Start: 04/07/21 11:35 Freq: Status: Active Protocol: Document 04/07/21 11:35 CW (Rec: 04/07/21 11:43 CW [id number]) Nutrition Notes Need for Assessment generated from: MD Order Initial or Follow up Assessment Current Diagnosis Sepsis Other Pertinent Diagnosis Covid 19 PUI, pneu Current Diet Regular Labs/Tests K 3.2 BG 120 Pertinent Medications NS 4.5 L, at 125 ml/hr KCl 10 mEq decadron Height 5 ft 7 in Weight 83.915 kg [place] Body Weight (kg) 61.36 BMI 29.0 Intake Prior to Admission Poor Weight Status Overweight Subjective/Other Information MD consult for diet edu. No indication for diet education. Per EHR, pt has had poor appetite. Attempted reaching pt via phone x 2. Will monotor for stable PO intake. Kavin score of 20 GI Symptoms None Skin Integrity/Comment Intact Minimum of two criteria No physical signs of malnutrition #1 Nutrition Diagnosis Predicted suboptimal energy intake Etiology acute illness As Evidenced by Signs and Symptoms pt has reported loss of appetite Is patient on ventilator? No Is Patient Ambulatory and/or Out of Bed Yes REE-([facility]. [facility]-ambulatory/OOB) [ [id number] [id number]] Calculation Used for Recommendations [facility] Additional Notes protein needs: 67 - 84g (0.8 - 1g/kg) fluid needs: 1 ml/kcal or per MD order Nutrition Intervention Change Diet Order: Continue current diet as ordered Goal #1 Meet at least 75% of kcal and protein needs via PO Anticipated Discharge Needs: Regular diet Follow-Up By: 04/11/21 Additional Comments F/U for stable intake and need for ONS <ARELIS PINA - Last Filed: 04/14/21 07:23> Assessment and Plan Assessment and plan: I saw and evaluated the patient. Discussed with the nurse practitioner and agree with their findings and plan as documented in this note. Hospitalist Physical - Constitutional Vitals: Temp Pulse Resp BP Pulse Ox 98.0 F 87 18 146/90 97 04/13/21 11:53 04/13/21 17:04 04/13/21 17:04 04/13/21 17:04 04/13/21 17:04 HEART Score - HEART Score Troponin: Troponin T < 0.010 ng/mL (0.00-0.029) 04/06/21 21:27 Results - Labs CBC & Chem 7: 04/13/21 04:41 04/13/21 04:41 Labs: Laboratory Last Values WBC 14.5 K/mm3 (4.5-11.0) H 04/13/21 04:41 RBC 3.61 M/mm3 (3.65-5.03) L 04/13/21 04:41 Hgb 10.1 gm/dl (10.1-14.3) 04/13/21 04:41 Hct 31.3 % (30.3-42.9) 04/13/21 04:41 MCV 87 fl (79-97) 04/13/21 04:41 MCH 28 pg (28-32) 04/13/21 04:41 MCHC 32 % (30-34) 04/13/21 04:41 RDW 14.3 % (13.2-15.2) 04/13/21 04:41 Plt Count 201 K/mm3 (140-440) 04/13/21 04:41 [place] % (Auto) 5.8 % (0.0-7.3) 04/12/21 13:42 Eos % (Auto) 0.5 % (0.0-4.3) 04/12/21 13:42 [place] # (Auto) 1.1 K/mm3 (0.0-0.8) H 04/12/21 13:42 Eos # (Auto) 0.1 K/mm3 (0.0-0.4) 04/12/21 13:42 Baso # (Auto) 0.0 K/mm3 (0.0-0.1) 04/12/21 13:42 Add Manual Diff Complete 04/13/21 04:41 Total Counted 100 04/13/21 04:41 Seg Neutrophils % 84.2 % (40.0-70.0) H 04/12/21 13:42 Seg Neuts % (Manual) 80.0 % (40.0-70.0) H 04/13/21 04:41 Band Neutrophils % 7.0 % 04/13/21 04:41 Lymphocytes % (Manual) 10.0 % (13.4-35.0) L 04/13/21 04:41 Reactive Lymphs % (Man) 2.0 % 04/13/21 04:41 Monocytes % (Manual) 3.0 % (0.0-7.3) 04/12/21 13:42 Eosinophils % (Manual) 1.0 % (0.0-4.3) 04/12/21 13:42 Metamyelocytes % 1.0 % 04/10/21 04:00 Myelocytes % 1.0 % 04/12/21 13:42 Promyelocytes % 1.0 % 04/13/21 04:41 Nucleated RBC % Not Reportable 04/13/21 04:41 Seg Neutrophils # 16.0 K/mm3 (1.8-7.7) H 04/12/21 13:42 Seg Neutrophils # Man 11.6 K/mm3 (1.8-7.7) H 04/13/21 04:41 Band Neutrophils # 1.0 K/mm3 04/13/21 04:41 Lymphocytes # (Manual) 1.5 K/mm3 (1.2-5.4) 04/13/21 04:41 Abs React Lymphs (Man) 0.3 K/mm3 04/13/21 04:41 Monocytes # (Manual) 0.0 K/mm3 (0.0-0.8) 04/13/21 04:41 Eosinophils # (Manual) 0.0 K/mm3 (0.0-0.4) 04/13/21 04:41 Basophils # (Manual) 0.0 K/mm3 (0.0-0.1) 04/13/21 04:41 Metamyelocytes # 0.0 K/mm3 04/13/21 04:41 Myelocytes # 0.0 K/mm3 04/13/21 04:41 Promyelocytes # 0.1 K/mm3 04/13/21 04:41 Blast Cells # 0.0 K/mm3 04/13/21 04:41 WBC Morphology Not Reportable 04/13/21 04:41 Hypersegmented Neuts Not Reportable 04/13/21 04:41 Hyposegmented Neuts Not Reportable 04/13/21 04:41 Hypogranular Neuts Not Reportable 04/13/21 04:41 Smudge Cells Not Reportable 04/13/21 04:41 Toxic Granulation 1+ 04/13/21 04:41 Toxic Vacuolation Not Reportable 04/13/21 04:41 Dohle Bodies Not Reportable 04/13/21 04:41 Pelger-Huet Anomaly Not Reportable 04/13/21 04:41 Rafal Rods Not Reportable 04/13/21 04:41 Platelet Estimate Consistent w auto 04/13/21 04:41 Clumped Platelets Not Reportable 04/13/21 04:41 Plt Clumps, EDTA Not Reportable 04/13/21 04:41 Large Platelets Not Reportable 04/13/21 04:41 Giant Platelets Not Reportable 04/13/21 04:41 Platelet Satelliting Not Reportable 04/13/21 04:41 Plt Morphology Comment Not Reportable 04/13/21 04:41 RBC Morphology Not Reportable 04/13/21 04:41 Dimorphic RBCs Not Reportable 04/13/21 04:41 Polychromasia Not Reportable 04/13/21 04:41 Hypochromasia 2+ 04/13/21 04:41 Poikilocytosis Not Reportable 04/13/21 04:41 Anisocytosis Not Reportable 04/13/21 04:41 Microcytosis Not Reportable 04/13/21 04:41 Macrocytosis Not Reportable 04/13/21 04:41 Spherocytes Not Reportable 04/13/21 04:41 Pappenheimer Bodies Not Reportable 04/13/21 04:41 Sickle Cells Not Reportable 04/13/21 04:41 Target Cells 1+ 04/13/21 04:41 Tear Drop Cells Not Reportable 04/13/21 04:41 Ovalocytes Few 04/13/21 04:41 Helmet Cells Not Reportable 04/13/21 04:41 [place] Bodies Not Reportable 04/13/21 04:41 [place] Rings Not Reportable 04/13/21 04:41 [place] Cells Not Reportable 04/13/21 04:41 Bite Cells Not Reportable 04/13/21 04:41 Crenated Cell Not Reportable 04/13/21 04:41 Elliptocytes Not Reportable 04/13/21 04:41 Acanthocytes (Spur) Not Reportable 04/13/21 04:41 Rouleaux Not Reportable 04/13/21 04:41 Hemoglobin C Crystals Not Reportable 04/13/21 04:41 Schistocytes Not Reportable 04/13/21 04:41 Malaria parasites Not Reportable 04/13/21 04:41 ESR 1 mm/Hr (0-20) 04/13/21 04:41 Gaudencio Bodies Not Reportable 04/13/21 04:41 Hem Pathologist Commnt No 04/13/21 04:41 PT 13.6 Sec. (12.2-14.9) 04/09/21 08:06 INR 0.94 (0.87-1.13) 04/09/21 08:06 APTT 31.9 Sec. (24.2-36.6) 04/09/21 08:06 Fibrinogen 558 mg/dl (211-480) H 04/10/21 05:00 D-Dimer > 55862 ng/mlDDU (0-234) H 04/06/21 17:29 Sodium 137 mmol/L (137-145) 04/13/21 04:41 Potassium 4.0 mmol/L (3.6-5.0) 04/13/21 04:41 Chloride 103.4 mmol/L (98-107) 04/13/21 04:41 Carbon Dioxide 23 mmol/L (22-30) 04/13/21 04:41 Anion Gap 15 mmol/L 04/13/21 04:41 BUN 7 mg/dL (7-17) 04/13/21 04:41 Creatinine 0.3 mg/dL (0.6-1.2) L 04/13/21 04:41 Estimated GFR > 60 ml/min 04/13/21 04:41 BUN/Creatinine Ratio 23 % 04/13/21 04:41 Glucose 85 mg/dL (65-100) 04/13/21 04:41 Lactic Acid 1.50 mmol/L (0.7-2.0) 04/08/21 05:58 Uric Acid 2.1 mg/dL (3.5-7.6) L 04/09/21 10:00 Calcium 8.8 mg/dL (8.4-10.2) 04/13/21 04:41 Phosphorus 1.90 mg/dL (2.5-4.5) L 04/09/21 04:40 Magnesium 2.00 mg/dL (1.7-2.3) 04/09/21 04:40 Ferritin 660.2 ng/mL (10.0-200.0) H 04/06/21 23:20 Total Bilirubin 1.20 mg/dL (0.1-1.2) 04/06/21 17:29 AST 70 units/L (5-40) H 04/06/21 17:29 ALT 46 units/L (7-56) 04/06/21 17:29 Alkaline Phosphatase 94 units/L (35-129) 04/06/21 17:29 Lactate Dehydrogenase 322 units/L (91-180) H 04/06/21 23:20 Troponin T < 0.010 ng/mL (0.00-0.029) 04/06/21 21: C-Reactive Protein 7.40 mg/dL (0.00-1.30) H 04/13/21 04:41 NT-Pro-B Natriuret Pep 1182 pg/mL (0-900) H 04/06/21 21:27 Total Protein 6.9 g/dL (6.3-8.2) 04/06/21 17:29 Albumin 3.7 g/dL (3.9-5) L 04/06/21 17:29 Albumin/Globulin Ratio 1.2 % 04/06/21 17:29 Procalcitonin 8.61 ng/mL (<0.15) 04/06/21 23:20 Urine Color Yellow (Yellow) 04/06/21 21:37 Urine Turbidity Slightly-cloudy (Clear) 04/06/21 21:37 Urine pH 5.0 (5.0-7.0) 04/06/21 21:37 Ur Specific [place] 1.014 (1.003-1.030) 04/06/21 21:37 Urine Protein 30 mg/dl mg/dL (Negative) 04/06/21 21:37 Urine Glucose (UA) Neg mg/dL (Negative) 04/06/21 21:37 Urine Ketones Neg mg/dL (Negative) 04/06/21 21:37 Urine Blood Sm (Negative) 04/06/21 21:37 Urine Nitrite Neg (Negative) 04/06/21 21:37 Urine Bilirubin Neg (Negative) 04/06/21 21:37 Urine Urobilinogen < 2.0 mg/dL (<2.0) 04/06/21 21:37 Ur Leukocyte Esterase Tr (Negative) 04/06/21 21:37 Urine WBC (Auto) 18.0 /HPF (0.0-6.0) H 04/06/21 21:37 Urine RBC (Auto) 2.0 /HPF (0.0-6.0) 04/06/21 21:37 U Epithel Cells (Auto) 2.0 /HPF (0-13.0) 04/06/21 21:37 Urine Mucus Few /HPF 04/06/21 21:37 Vancomycin Trough 7.2 ug/mL (5.0-20.0) 04/09/21 11:14 Rheumatoid Factor 15 IU/ml (0-13) H 04/09/21 10:00 ROGELIO Screen Negative (Negative) 04/09/21 10:00 Double Strand DNA Ab <1 IU/mL (<=4) 04/09/21 10:00 Coronavirus (PCR) Negative (Negative) 04/07/21 09:05 HIV 1&2 Antibody Rapid Non react (Non React) 04/09/21 08:06 HIV P24 Antigen Non react (Non React) 04/09/21 08:06 Microbiology: Microbiology 04/09/21 18:08 Peripheral/Venous Blood Culture - Preliminary NO GROWTH AFTER 4 DAYS 04/09/21 18:15 Peripheral/Venous Blood Culture - Preliminary NO GROWTH AFTER 4 DAYS Contreras/IV: Voiding Method Bedside Commode Nutrition/Malnutrition Assess - Dietary Evaluation Nutrition/Malnutrition Findings: Nutrition Notes Start: 04/07/21 11:35 Freq: Status: Discharge Protocol: Document 04/11/21 12:57 MELANI (Rec: 04/11/21 13:04 MELANI [id number]) Nutrition Notes Initial or Follow up Reassessment Other Pertinent Diagnosis Septic shock, Met encephalopathy, Pneumonia, Thromocytopenia, UTI. Current Diet Regular Diet (since D 04/07). Labs/Tests 04/10: Crea 0.3. Pertinent Medications 04/11: Nutritionally unremarkable. Height 5 ft 7 in Weight 78.6 kg [place] Body Weight (kg) 61.36 BMI 27.1 Weight change and time frame 5.32 Kg body weight loss within the last 4 days reported. Weight Status Overweight Subjective/Other Information RD consult for routine F/U on PO intake of meals. 5.32 Kg body weight loss within the last 4 days reported. No %PO intake of meals reported at the time. Dietary supplements Ensure Enlive BID ordered. Percent of energy/protein needs met: Prescribed Regular Diet provides for energy/protein needs (2,289 Kcal/89 g) during LOS; additionally, Dietary Supplements will compensate for possible Poor PO intake of meals with 700 Kcal and 40 g of protein. Burn Absent Trauma Absent GI Symptoms None Food Allergy No Skin Integrity/Comment Clear, warm, dry. #1 Nutrition Diagnosis Predicted suboptimal energy intake Etiology Ongoing concomitant critical conditions As Evidenced by Signs and Symptoms Abnormal chemistry lab values, loss of 6.77% of body weight in 4 days. No report on %PO intake of meals at the time. Is patient on ventilator? No Is Patient Ambulatory and/or Out of Bed Yes REE-([facility]-ambulatory/OOB) [ 1811.719 [id number]] Kcal/Kg value to use for calculation 35 Approximate Energy Requirements Using 2751 kcal/Kg Calculation Used for Recommendations Kcal/kg Additional Notes Protein: 1.2-1.5 g/Kg; 73-92 g /day (from IBW + critical care ). Fluids: 1 ml/Kcal, or as per MD. Nutrition Intervention Change Diet Order: Continue Regular Diet. Add Supplement/Snack (indicate name/kcal 8 fl oz Ensure Enlive; BID /protein ) Provides kCal: 700 Provides Protein (gm) 40 Goal #1 Maintain body weight within +/ -3% of admission BWt during LOS. Goal #2 Reach and maintain acceptable chemistry lab values during LOS. Follow-Up By: 04/19/21 Additional Comments Continue monitoring food tolerance, %PO intake of meals , Hydration, and BM.
[2021-04-08] MEDS: K-PHOS NEUTRAL 250 MG TAB PO SCH ×4 (12:17→23:50)
[2021-04-08] MEDS: FAMOTIDINE 20 MG TAB PO SCH ×2 (12:20→22:40)
[2021-04-08] MEDS: ACETAMINOPHEN 325 MG TAB PO PRN (20:15)
[2021-04-08] MEDS: cefTRIAXone/NS 2 GM/100 ML 2 GM/100 ML BAG IV SCH (22:33)
[2021-04-08] MEDS: SENNOSIDES 8.6 MG TAB PO SCH (22:40)
[2021-04-08] MEDS: AZITHROMYCIN/NS 500 MG/250 ML 500 MG/250 ML BAG IV SCH (23:13)
[2021-04-09] MEDS: VANCOMYCIN/NS 1 GM/250 ML 1 GM/250 ML BAG IV SCH ×3 (00:08→12:41)
[2021-04-09 06:18] LABS: Hematocrit 32.7 % (30.3-42.9); Hemoglobin 10.5 gm/dl (10.1-14.3); Mean Corpuscular HGB Conc 32 % (30-34); Mean Corpuscular Volume 88 fl (79-97); Red Blood Count 3.72 M/mm3 (3.65-5.03)
[2021-04-09 06:30] LABS: Platelet Count 46 K/mm3 (140-440)
[2021-04-09 06:38] LABS: Blood Urea Nitrogen 10 mg/dL (7-17); Calcium 8.8 mg/dL (8.4-10.2); Hemolysis Index 6
[2021-04-09 06:41] LABS: BUN/Creatinine Ratio 25
[2021-04-09] MEDS: POTASSIUM CHLORIDE ER 20 MEQ TAB PO SCH ×2 (08:26→11:06)
[2021-04-09] MEDS: POTASSIUM CHLORIDE 10 MEQ 10 MEQ/100 ML BAG IV SCH ×3 (08:27→11:03)
[2021-04-09 08:54] LABS: Hematocrit 34.3 % (30.3-42.9); Hemoglobin 10.9 gm/dl (10.1-14.3); Mean Corpuscular HGB Conc 32 % (30-34); Mean Corpuscular Volume 88 fl (79-97); Red Cell Distribution Width 14.3 % (13.2-15.2)
[2021-04-09 08:55] LABS: Platelet Count 49 K/mm3 (140-440)
--- NOTE | 2021-04-09 09:00 | Progress Note ---
Assessment and Plan Assessment and Plan #Acute Metabolic Encephalopathy Improved Afebrile Alert and oriented #Septic Shock Continue IV antibiotics Off pressors #Hypotension- resolved #Hypokalemia Supplemented #Hypophosphatemia Supplemented #Cervical Mass INFORMATION SYSTEMS AUDITOR consultation #Thrombocytopenia Persistent #Leukopenia Improving #Multifocal pneumonia Continue IV antibiotics #Urinary Tract Infection (UTI) Continue IV antibiotics #COVID PUI Negative #Lactic Acidosis Improved Acute gout Check uric acid levels Started on colchicine and prednisone Also ROGELIO dsDNA and CCP ordered DVT prophylaxis On SCDs and GI prophylaxis Advance directives Disease education conducted care plan discussed, diagnosis discussed, prognosis discussed, patient is full code, patient and daughter acknowledges understanding and agree with care plan, +30 minutes. Subjective Date of service: 04/09/21 Principal diagnosis: Septic shock Interval history: 61-year-old female with no significant past medical history presenting to the emergency room today with right leg pain and progressive loss of appetite over the past few days. Patient states that she fell sometime yesterday hurt her leg. She also indicates that she struck her head but denies any headache and denies any dizziness. According to family members who were by the bedside, patient was said to appear little confused today. Patient denies any fever or chills, no chest pain or shortness of breath, no nausea or vomiting, no diarrhea and no abdominal pain. She denies any hematuria or dysuria. Denies any bright red blood per rectum. Denies any melena. Patient denies any sick contacts and no recent travel. Denies any weight loss, denies any night sweats. She denies any contact with anyone with COVID-19. She however admits that she has not had the COVID-19 vaccination. Upon arrival in the emergency room today, she appeared tachycardic and hypotensive. She received boluses of IV fluid. Work-up reveals lactic acid of 4.0, BNP of 1182, potassium level of 3.2, elevated D-dimer of greater than 10,000. WBC count of 3.0, and platelet count of 91. Urinalysis shows trace of leukocyte esterase, 18 WBC with a slightly cloudy urine. Chest x-ray, x-ray of the tibia and fibula of the right lower extremity, right femur were unremarkable. CT angiogram shows no evidence of pulmonary embolism There is mild reticular/airspace opacities within the lung bases, may reflect atelectasis or developing pneumonia. Multiple mildly enlarged mediastinal lymph nodes are presumably reactive. CT of the abdomen and pelvis reveals: 1. Abnormal masslike thickening of the cervix and vagina. Malignancy is the diagnosis of exclusion. Recommend gynecology consultation. 2. Mildly enlarged left inguinal lymph node is nonspecific. Recommend follow- up. Patient admitted to ICU for septic shock and was on pressors and IV antibiotics Hospital Course to Date: 04/07/21- Patient is off pressors this am, on room air, alert but still confused. Still tachycardic this am, remains afebrile overnight, leukopenia improved, COVID swab pending. Will continue current IVF and IV Abx, ID consult pending. Worsen thrombocytopenia this am, no s/s of any bleeding, H&H is stable HEME consult pending. SCDs ordered for VTE proph. Electrolytes repleted. Will continue to trend lactic acid, CBC, and BMP. 04/08/21- Patient remains stable, on room air, more awake and alert this am. Remains febrile overnight, blood culture growing 4 out GPC in pairs and chains, continue current IV Abx, ID on consult. 2D echo also ordered to r/o endocarditis. D/W CCM patient is stable for transfer to the floor. 04/09/2021 Patient transferred to the telemetry floor Patient sitting in the bed and eating Complains of pain in the right ankle and the left knee Potassium is 2.7 Objective - Constitutional Vitals: Vital Signs - 12hr 04/08/21 04/09/21 04/09/21 22:39 00:00 02:44 Temperature 100.9 F H Pulse Rate 111 H 102 H Pulse Rate [ 102 H From Monitor] Respiratory 16 18 Rate Blood Pressure 103/59 O2 Sat by Pulse 94 96 Oximetry 04/09/21 04/09/21 03:53 07:37 Temperature 99.2 F 99.8 F H Pulse Rate 97 H 101 H Pulse Rate [ From Monitor] Respiratory 16 16 Rate Blood Pressure 136/85 139/87 O2 Sat by Pulse 98 96 Oximetry General appearance: Present: no acute distress, well-nourished - EENT Eyes: PERRL, EOM intact ENT: hearing intact, clear oral mucosa Ears: bilateral: normal - Neck Neck: supple, normal ROM - Respiratory Respiratory effort: normal Respiratory: bilateral: CTA - Breasts Breasts: normal - Cardiovascular Heart rate: 78 Rhythm: regular Heart Sounds: Present: S1 & S2. Absent: gallop, rub Extremities: pulses intact, No edema, normal color, Full ROM, abnormal (Right ankle tenderness present and left knee tenderness) - Gastrointestinal General gastrointestinal: Present: soft, non-tender, non-distended, normal bowel sounds - Genitourinary Female genitourinary: normal - Integumentary Integumentary: clear, warm, dry - Musculoskeletal Musculoskeletal: 1, strength equal bilaterally - Neurologic Neurologic: moves all extremities - Psychiatric Psychiatric: memory intact, appropriate mood/affect, intact judgment & insight - Labs CBC & Chem 7: 04/09/21 08:06 04/09/21 04:40 Labs: Abnormal lab results 04/09/21 04/09/21 04/09/21 Range/Units 04:40 04:40 08:06 Plt Count 46 L 49 L (140-440) K/mm3 Potassium 2.7 L* D (3.6-5.0) mmol/L Carbon Dioxide 20 L (22-30) mmol/L Creatinine 0.4 L (0.6-1.2) mg/dL Phosphorus 1.90 L (2.5-4.5) mg/dL CT of the abdomen and pelvis Reproductive organs Abnormal circumferential masslike thickening of the cervix measuring 5.6X 3.8 cm transaxially. There is also abnormal soft tissue extending into the vagina. Moderate inflammatory changes. Calcified uterine fibroids. The uterus appears unremarkable. No suspicious adnexal mass. Final impression abnormal masslike thickening of the cervix and vagina. Malignancy is a diagnosis of exclusion. Direct recommend gynecology consultation. Mildly enlarged left inguinal lymph node nonspecific. Recommend follow-up. CT of the chest No evidence for pulmonary embolism Mild reticular airspace opacities in the lung base may reflect atelectasis or developing pneumonia. Multiple mildly enlarged mediastinal lymph nodes are presumably reactive. Continued follow-up is recommended. Head CT is normal CT cervical spine no No indication of fracture or traumatic subluxation HEART Score - HEART Score Troponin: Troponin T < 0.010 ng/mL (0.00-0.029) 04/06/21 21:27
[2021-04-09 09:10] LABS: INR 0.94 (0.87-1.13)
[2021-04-09 09:11] LABS: Partial Thromboplastin Time 31.9 Sec. (24.2-36.6)
[2021-04-09] MEDS: K-PHOS NEUTRAL 250 MG TAB PO SCH ×4 (09:50→21:53)
[2021-04-09] MEDS: FAMOTIDINE 20 MG TAB PO SCH ×2 (09:50→21:53)
[2021-04-09] MEDS: predniSONE 20 MG TAB PO SCH (09:52)
[2021-04-09] MEDS: COLCHICINE 0.6 MG TAB PO SCH ×2 (11:02→21:53)
[2021-04-09] MEDS: ACETAMINOPHEN 325 MG TAB PO PRN (11:06)
[2021-04-09 11:59] LABS: Band Neutrophils # (Manual) 0.1 K/mm3; Total Cells Counted 100
[2021-04-09 12:00] LABS: Platelet Estimate Consistent w Auto; Target Cells Few
--- NOTE | 2021-04-09 13:24 | Progress Note ---
Assessment and Plan #Septic Shock 2/2 GPC bacteremia -CRP 22. Procalcitonin 8.6. -BCx 04/06- Beta hemolytic strep #Acute Metabolic Encephalopathy-resolved #Cervical and vaginal wall thickening #Thrombocytopenia #Leukopenia #Multifocal infiltrates- possible pneumonia, septic emboli #Urinary Tract Infection (UTI) -Continue broad spectrum antibiotics for now, de-escalate based on culture data -Get transthoracic echocardiogram to evaluate for vegetations ( Echo does not show any evidence of vegetations, normal biventricular function, Pulmoanry HTN RVSP 38) -Patient is s/p hysterectomy. 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 Patient was admitted for Septic shock probably due to PNA/COVID PUI vs UTI required vasopressor support. Imaging also revealed abnormal mass-like thickening of the cervix and vagina, concern for malignancy Patient seen and examined. Vitals, labs, medications, chart and imaging reviewed. No adverse overnight events. No chills, no fevers, no nausea or vomiting. Wants to know when she can go home Objective Vital Signs - 12hr 04/09/21 04/09/21 04/09/21 02:44 03:53 07:37 Temperature 99.2 F 99.8 F H Pulse Rate 102 H 97 H 101 H Respiratory 16 16 Rate Blood Pressure 136/85 139/87 O2 Sat by Pulse 98 96 Oximetry 04/09/21 11:03 Temperature 100.3 F H Pulse Rate 113 H Respiratory 18 Rate Blood Pressure 149/92 O2 Sat by Pulse 98 Oximetry Constitutional: no acute distress, alert Eyes: non-icteric ENT: oropharynx moist Neck: supple, no lymphadenopathy Effort: normal Ascultation: Bilateral: clear Cardiovascular: regular rate and rhythm, other (S1,S2) Gastrointestinal: normoactive bowel sounds, soft, non-tender, non-distended Integumentary: normal Extremities: no cyanosis, no edema, pink and warm, pulses normal Neurologic: normal mental status, non-focal exam, pupils equal and round, motor strength normal and Psychiatric: mood appropriate, affect normal CBC and BMP: 04/10/21 04:00 04/10/21 04:00 ABG, PT/INR, D-dimer: PT/INR, D-dimer PT 13.6 Sec. (12.2-14.9) 04/09/21 08:06 INR 0.94 (0.87-1.13) 04/09/21 08:06 D-Dimer > 88301 ng/mlDDU (0-234) H 04/06/21 17:29 Abnormal lab findings: Abnormal Labs 04/06/21 04/06/21 04/06/21 17:29 17:29 17:29 WBC 3.0 L Plt Count 91 L Seg Neuts % (Manual) 96.0 H Lymphocytes % (Manual) 4.0 L Nucleated RBC % Lymphocytes # (Manual) 0.1 L Fibrinogen D-Dimer > 76508 H Sodium 131 L Potassium 3.2 L Chloride 96.0 L Carbon Dioxide 20 L BUN 22 H Creatinine Glucose 129 H Lactic Acid Uric Acid Calcium Phosphorus Ferritin AST 70 H Lactate Dehydrogenase C-Reactive Protein NT-Pro-B Natriuret Pep Albumin 3.7 L Urine WBC (Auto) Rheumatoid Factor 04/06/21 04/06/21 04/06/21 17:29 21:27 21:27 WBC Plt Count Seg Neuts % (Manual) Lymphocytes % (Manual) Nucleated RBC % Lymphocytes # (Manual) Fibrinogen D-Dimer Sodium Potassium Chloride Carbon Dioxide BUN Creatinine Glucose Lactic Acid 4.00 H* 3.60 H* Uric Acid Calcium Phosphorus Ferritin AST Lactate Dehydrogenase C-Reactive Protein NT-Pro-B Natriuret Pep 1182 H Albumin Urine WBC (Auto) Rheumatoid Factor 04/06/21 04/06/21 04/06/21 21:37 23:20 23:20 WBC Plt Count Seg Neuts % (Manual) Lymphocytes % (Manual) Nucleated RBC % Lymphocytes # (Manual) Fibrinogen D-Dimer Sodium Potassium Chloride Carbon Dioxide BUN Creatinine Glucose Lactic Acid 4.40 H* Uric Acid Calcium Phosphorus Ferritin AST Lactate Dehydrogenase 322 H C-Reactive Protein 22.30 H NT-Pro-B Natriuret Pep Albumin Urine WBC (Auto) 18.0 H Rheumatoid Factor 04/06/21 04/07/21 04/07/21 23:20 04:31 04:31 WBC Plt Count 61 L Seg Neuts % (Manual) Lymphocytes % (Manual) 1.0 L Nucleated RBC % Lymphocytes # (Manual) 0.0 L Fibrinogen D-Dimer Sodium Potassium 3.2 L Chloride 108.4 H Carbon Dioxide 18 L BUN Creatinine 0.5 L D Glucose 120 H Lactic Acid Uric Acid Calcium 8.1 L D Phosphorus Ferritin 660.2 H AST Lactate Dehydrogenase C-Reactive Protein NT-Pro-B Natriuret Pep Albumin Urine WBC (Auto) Rheumatoid Factor 04/07/21 04/08/21 04/08/21 04:31 05:58 05:58 WBC Plt Count 57 L Seg Neuts % (Manual) Lymphocytes % (Manual) Nucleated RBC % Lymphocytes # (Manual) Fibrinogen D-Dimer Sodium 134 L Potassium 3.5 L Chloride Carbon Dioxide 18 L BUN Creatinine 0.5 L Glucose 112 H Lactic Acid 2.40 H* Uric Acid Calcium Phosphorus 1.70 L Ferritin AST Lactate Dehydrogenase C-Reactive Protein NT-Pro-B Natriuret Pep Albumin Urine WBC (Auto) Rheumatoid Factor 04/09/21 04/09/21 04/09/21 04:40 04:40 08:06 WBC Plt Count 46 L Seg Neuts % (Manual) Lymphocytes % (Manual) Nucleated RBC % Lymphocytes # (Manual) Fibrinogen 591 H D-Dimer Sodium Potassium 2.7 L* D Chloride Carbon Dioxide 20 L BUN Creatinine 0.4 L Glucose Lactic Acid Uric Acid Calcium Phosphorus 1.90 L Ferritin AST Lactate Dehydrogenase C-Reactive Protein NT-Pro-B Natriuret Pep Albumin Urine WBC (Auto) Rheumatoid Factor 04/09/21 04/09/21 04/09/21 08:06 10:00 10:00 WBC Plt Count 49 L Seg Neuts % (Manual) 86.0 H Lymphocytes % (Manual) 6.0 L Nucleated RBC % 1.0 H Lymphocytes # (Manual) 0.4 L Fibrinogen D-Dimer Sodium Potassium Chloride Carbon Dioxide BUN Creatinine Glucose Lactic Acid Uric Acid 2.1 L Calcium Phosphorus Ferritin AST Lactate Dehydrogenase C-Reactive Protein NT-Pro-B Natriuret Pep Albumin Urine WBC (Auto) Rheumatoid Factor 15 H Allied health notes reviewed: nursing
[2021-04-09] MEDS ORDERED: VANCOMYCIN/NS 1 GM/250 ML 1 GM/250 ML BAG IV SCH ×2 (14:00→22:00)
[2021-04-09] MEDS ORDERED: POTASSIUM CHLORIDE ER 20 MEQ TAB PO ONE (14:00)
--- NOTE | 2021-04-09 14:33 | Consultation ---
History of Present Illness Consult date: 04/09/21 Reason for consult: pelvic mass History of present illness: Patient is a with no significant medical history with incidental finding of cervical mass on CT scan. Voices no complaints. Per patient report, history of heavy bleeding in [place] with a mass in her abdomen. Notes after coming to [place], she was evaluated and had a surgery to "remove everything" in 2005. Has not had a menstrual period since that time. Unsure if she has ever had a Pap smear. Has not seen a [facility] since her surgery in 2005. Denies any vaginal bleeding, abnormal vaginal discharge, or pelvic pain. 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) Social history: no significant social history, - Obstetrical History : 1 Para: 0 Spontaneous Abortions: 1 Induced : 0 Number of Living Children: 0 Medications and Allergies Allergies Allergy/AdvReac Type Severity Reaction Status Date / Time No Known Allergies Allergy Unverified 04/06/21 17:27 Active Meds: Active Medications Acetaminophen (Acetaminophen 325 Mg Tab) 650 mg PO Q6H PRN PRN Reason: Pain MILD(1-3)/Fever >100.5/[place] Last Admin: 04/09/21 11:06 Dose: 650 mg Documented by: Colchicine (Colchicine 0.6 Mg Tab) 0.6 mg PO BID [facility] Last Admin: 04/09/21 11:02 Dose: 0.6 mg Documented by: Famotidine (Famotidine 20 Mg Tab) 20 mg PO BID [facility] Last Admin: 04/09/21 09:50 Dose: 20 mg Documented by: Ceftriaxone Sodium (Rocephin/Ns 2 Gm/100 Ml) 2 gm in 100 mls @ 200 mls/hr IV Q24HR@2200 MICHELLE; Protocol Last Admin: 04/08/21 22:33 Dose: 200 mls/hr Documented by: Azithromycin (Zithromax/Ns) 500 mg in 250 mls @ 250 mls/hr IV Q24HR@2200 MICHELLE; Protocol Last Admin: 04/08/21 23:13 Dose: 250 mls/hr Documented by: Sodium Chloride (Nacl 0.9% 1000 Ml) 1,000 mls @ 75 mls/hr IV DIRECT MICHELLE Vancomycin HCl (Vancomycin/Ns 1 Gm/250 Ml) 1 gm in 250 mls @ 166.667 mls/hr IV 0600,1400,2200 [facility] Magnesium Hydroxide (Magnesium Hydroxide (Mom) Oral Liqd Udc) 30 ml PO Q4H PRN PRN Reason: Constipation Ondansetron HCl (Ondansetron 4 Mg/2 Ml Inj) 4 mg IV Q8H PRN PRN Reason: Nausea And Vomiting Potassium Chloride (Potassium Chloride Er 20 Meq Tab) 20 meq PO ONCE ONE Stop: 04/09/21 14:01 Prednisone (Prednisone 20 Mg Tab) 20 mg PO QDAY [facility] Last Admin: 04/09/21 09:52 Dose: 20 mg Documented by: Senna (Sennosides 8.6 Mg Tab) 8.6 mg PO QHS [facility] Last Admin: 04/08/21 22:40 Dose: 8.6 mg Documented by: Sodium Chloride (Sodium Chloride 0.9% 10 Ml Flush Syringe) 10 ml IV BID [facility] Last Admin: 04/09/21 09:50 Dose: 10 ml Documented by: Sodium Chloride (Sodium Chloride 0.9% 10 Ml Flush Syringe) 10 ml IV PRN PRN PRN Reason: LINE FLUSH Sodium Phosphate (K-Phos Neutral 250 Mg Tab) 250 mg PO QID [facility] Stop: 04/09/21 22:01 Last Admin: 04/09/21 13:46 Dose: 250 mg Documented by: Tramadol HCl (Tramadol 50 Mg Tab) 50 mg PO Q6H PRN PRN Reason: Pain, Moderate (4-6) Last Admin: 04/07/21 21:16 Dose: 50 mg Documented by: Review of Systems All systems: negative Musculoskeletal: other (leg pain and swelling) - Vital Signs Vital signs: Vital Signs Pulse Resp BP Pulse Ox 134 H 20 85/50 98 04/06/21 17:04 04/06/21 17:04 04/06/21 17:04 04/06/21 17:04 Temp Pulse Resp BP Pulse Ox 100.3 F H 113 H 18 149/92 98 04/09/21 11:03 04/09/21 11:03 04/09/21 11:03 04/09/21 11:03 04/09/21 11:03 - Physical Exam Abdomen: Positive: normal appearance, soft, normal bowel sounds. Negative: distention, tenderness Genitourinary (Female): Positive: normal external genitalia, normal perenium Vagina: Positive: normal moisture, other (unable to insert speculum further to visualize speculum due to patient positionging and pain. Attempted bimanual, but unable to complete due to the same.) Results Result Diagrams: 04/09/21 08:06 04/09/21 04:40 Abnormal lab results 04/09/21 04/09/21 04/09/21 Range/Units 04:40 04:40 08:06 Plt Count 46 L (140-440) K/mm3 Seg Neuts % (Manual) (40.0-70.0) % Lymphocytes % (Manual) (13.4-35.0) % Nucleated RBC % (0.0-0.9) % Lymphocytes # (Manual) (1.2-5.4) K/mm3 Fibrinogen 591 H (211-480) mg/dl Potassium 2.7 L* D (3.6-5.0) mmol/L Carbon Dioxide 20 L (22-30) mmol/L Creatinine 0.4 L (0.6-1.2) mg/dL Uric Acid (3.5-7.6) mg/dL Phosphorus 1.90 L (2.5-4.5) mg/dL Rheumatoid Factor (0-13) IU/ml 04/09/21 04/09/21 04/09/21 Range/Units 08:06 10:00 10:00 Plt Count 49 L (140-440) K/mm3 Seg Neuts % (Manual) 86.0 H (40.0-70.0) % Lymphocytes % (Manual) 6.0 L (13.4-35.0) % Nucleated RBC % 1.0 H (0.0-0.9) % Lymphocytes # (Manual) 0.4 L (1.2-5.4) K/mm3 Fibrinogen (211-480) mg/dl Potassium (3.6-5.0) mmol/L Carbon Dioxide (22-30) mmol/L Creatinine (0.6-1.2) mg/dL Uric Acid 2.1 L (3.5-7.6) mg/dL Phosphorus (2.5-4.5) mg/dL Rheumatoid Factor 15 H (0-13) IU/ml All other labs normal. CT scan - pelvis: report reviewed Assessment and Plan - Patient Problems (1) Cervical mass Current Visit: Yes Status: Acute Plan to address problem: Patient with cervical mass on CT scan suspicious for malignancy. History and chart reviewed. Pelvic/Bimanual exam attempted, but unsuccessful secondary to improper position and discomfort. Patient unable to move left leg due to pain. No blood noted. Recommend further evaluation in outpatient setting with Pap smear, possible cervical biopsy. If cancer, will require referral to [facility], as no service at [facility].
--- NOTE | 2021-04-09 16:27 | Progress Note ---
Assessment and Plan Cultures: SARS-CoV-2 PCR negative. Blood culture 04/06/2021 with Group A Strep 4 out of 4 bottles. Urine culture 04/06/2021 no growth. Assessment: 61-year-old female with no past medical history admitted on 04/06/2021 secondary to few days of weakness, poor appetite and a fall at home complaining of right leg pain: #Severe sepsis: present on admission with fever, neutropenia, elevated lactate; source GPC bacteremia. CRP 22. Procalcitonin 8.6. #Group A Strep bacteremia: Of unclear etiology. ? Bilateral foot cellulitis. Transthoracic echo without endocarditis. #Bilateral pneumonia: CTA without PE, reticular airspace disease in the bases, mediastinal lymphadenopathies. SARS neg. ?lung emboli. Should rule out endocarditis. #UTI: Urinalysis with 18 WBCs and trace leukocyte esterase. #Elevated LFTs: due to sepsis #Neutropenia/thrombocytopenia: due to sepsis vs malignancy. #Cervical mass: ? cancer Recommendations: - Repeat blood cultures - Stop vancomycin and ceftriaxone - Start penicillin G IV and clindamycin - Left knee x-ray evaluation for effusion - Monitor fever Will follow. Xioa Badillo MD Infectious Diseases [employer] Consultant [facility] ([facility]) M [phone] O [phone] Subjective Date of service: 04/09/21 Principal diagnosis: Septic shock Interval history: Feels better complaining of severe right foot pain and left knee pain, remains with low-grade fever. Objective - Exam Narrative Exam: General appearance: Alert in NAD pleasant Eyes: anicteric sclerae, moist conjunctivae; no lid-lag; PERRLA HENT: Normocephalic, Atraumatic; normal external ears, nares open, oropharynx clear Neck: supple, tracheal midline, no JVD Lungs: CTA CV: RRR no murmur Abdomen: Soft, RUQ tenderness Extremities: Right ankle edema and tenderness, left knee edema and tenderness Skin: No rash. Psych: no agitated Neuro: alert and oriented x 3. Moving all extermities - Constitutional Vitals: Vital Signs Temp Pulse Resp BP Pulse Ox 100.2 F H 103 H 18 128/79 95 04/09/21 15:15 04/09/21 15:15 04/09/21 15:15 04/09/21 15:15 04/09/21 15:15 Temperature -Last 24 Hours Temperature 100.2 F Temperature 100.3 F Temperature 99.8 F Temperature 99.2 F Temperature 100.9 F Temperature 100.9 F - Labs CBC & Chem 7: 04/09/21 08:06 04/09/21 04:40 Labs: Abnormal lab results 04/09/21 04/09/21 04/09/21 Range/Units 04:40 04:40 08:06 Plt Count 46 L (140-440) K/mm3 Seg Neuts % (Manual) (40.0-70.0) % Lymphocytes % (Manual) (13.4-35.0) % Nucleated RBC % (0.0-0.9) % Lymphocytes # (Manual) (1.2-5.4) K/mm3 Fibrinogen 591 H (211-480) mg/dl Potassium 2.7 L* D (3.6-5.0) mmol/L Carbon Dioxide 20 L (22-30) mmol/L Creatinine 0.4 L (0.6-1.2) mg/dL Uric Acid (3.5-7.6) mg/dL Phosphorus 1.90 L (2.5-4.5) mg/dL Rheumatoid Factor (0-13) IU/ml 04/09/21 04/09/21 04/09/21 Range/Units 08:06 10:00 10:00 Plt Count 49 L (140-440) K/mm3 Seg Neuts % (Manual) 86.0 H (40.0-70.0) % Lymphocytes % (Manual) 6.0 L (13.4-35.0) % Nucleated RBC % 1.0 H (0.0-0.9) % Lymphocytes # (Manual) 0.4 L (1.2-5.4) K/mm3 Fibrinogen (211-480) mg/dl Potassium (3.6-5.0) mmol/L Carbon Dioxide (22-30) mmol/L Creatinine (0.6-1.2) mg/dL Uric Acid 2.1 L (3.5-7.6) mg/dL Phosphorus (2.5-4.5) mg/dL Rheumatoid Factor 15 H (0-13) IU/ml
[2021-04-09] MEDS ORDERED: PENICILLIN G POTASSIUM 5 MIL UNITS INJ IV SCH (18:00)
[2021-04-09] MEDS: PENICILLIN G POTASSIUM 4 MIL.UNITS in SODIUM CHLORIDE 0.9% 50 ML IV SCH ×2 (18:08→21:54)
[2021-04-09] MEDS: CLINDAMYCIN 600 MG/50 mL 600 MG/50 ML BAG IV SCH (18:27)
[2021-04-09] MEDS: traMADol 50 MG TAB PO PRN (18:28)
[2021-04-09] MEDS: SODIUM CHLORIDE 0.9% 1000 ML 1,000 ML IV SCH (18:55)
--- NOTE | 2021-04-09 19:57 | XRay Report ---
Left knee 3 views INDICATION: Left knee pain with swelling IMPRESSION: Prominent subcutaneous edema of the left knee. There is a small left knee effusion. Mild tricompartmental degenerative changes of the left knee. Signer Name: Wallace Menendez MD Signed: 04/09/2021 7:53 PM Workstation Name: [id number]
[2021-04-09] MEDS: SENNOSIDES 8.6 MG TAB PO SCH (21:53)
[2021-04-10] MEDS: CLINDAMYCIN 600 MG/50 mL 600 MG/50 ML BAG IV SCH ×3 (00:42→17:10)
[2021-04-10] MEDS: PENICILLIN G POTASSIUM 4 MIL.UNITS in SODIUM CHLORIDE 0.9% 50 ML IV SCH ×5 (01:43→17:55)
[2021-04-10 08:17] LABS: Hematocrit 32.5 % (30.3-42.9); Hemoglobin 10.6 gm/dl (10.1-14.3); Mean Corpuscular HGB Conc 33 % (30-34); Mean Corpuscular Volume 87 fl (79-97); Red Blood Count 3.72 M/mm3 (3.65-5.03); Red Cell Distribution Width 13.9 % (13.2-15.2)
[2021-04-10 08:21] LABS: Platelet Count 64 K/mm3 (140-440)
[2021-04-10] MEDS: traMADol 50 MG TAB PO PRN ×2 (08:24→17:09)
[2021-04-10 08:30] LABS: Blood Urea Nitrogen 11 mg/dL (7-17); Calcium 8.8 mg/dL (8.4-10.2); Hemolysis Index 4
[2021-04-10 08:34] LABS: BUN/Creatinine Ratio 37
[2021-04-10 09:17] LABS: Eosinophils % (Auto) 0.2 % (0.0-4.3); Monocytes # (Auto) 1.1 K/mm3 (0.0-0.8); Monocytes % (Auto) 11.2 % (0.0-7.3)
[2021-04-10] MEDS: COLCHICINE 0.6 MG TAB PO SCH ×2 (09:53→22:25)
[2021-04-10] MEDS: FAMOTIDINE 20 MG TAB PO SCH ×2 (09:53→22:24)
[2021-04-10] MEDS: predniSONE 20 MG TAB PO SCH (09:53)
[2021-04-10 11:55] LABS: Total Cells Counted 100
[2021-04-10 11:56] LABS: Platelet Estimate Consistent w Auto; Target Cells Few
--- NOTE | 2021-04-10 16:02 | Progress Note ---
Assessment and Plan Assessment and Plan Acute gout Check uric acid levels Started on colchicine and prednisone Also ROGELIO dsDNA and CCP ordered #Acute Metabolic Encephalopathy Improved Afebrile Alert and oriented #Septic Shock Continue IV antibiotics Off pressors #Hypotension- resolved #Hypokalemia Supplemented #Hypophosphatemia Supplemented #Cervical Mass FR[employer]ARMWORK[employer] consultation #Thrombocytopenia Persistent #Leukopenia Improving #Multifocal pneumonia Continue IV antibiotics #Urinary Tract Infection (UTI) Continue IV antibiotics #COVID PUI Negative #Lactic Acidosis Improved DVT prophylaxis On SCDs and GI prophylaxis Subjective Date of service: 04/10/21 Principal diagnosis: Septic shock Interval history: 61-year-old female with no significant past medical history presenting to the emergency room today with right leg pain and progressive loss of appetite over the past few days. Patient states that she fell sometime yesterday hurt her leg. She also indicates that she struck her head but denies any headache and denies any dizziness. According to family members who were by the bedside, patient was said to appear little confused today. Patient denies any fever or chills, no chest pain or shortness of breath, no nausea or vomiting, no diarrhea and no abdominal pain. She denies any hematuria or dysuria. Denies any bright red blood per rectum. Denies any melena. Patient denies any sick contacts and no recent travel. Denies any weight loss, denies any night sweats. She denies any contact with anyone with COVID-19. She however admits that she has not had the COVID-19 vaccination. Upon arrival in the emergency room today, she appeared tachycardic and hypotensive. She received boluses of IV fluid. Work-up reveals lactic acid of 4.0, BNP of 1182, potassium level of 3.2, elevated D-dimer of greater than 10,000. WBC count of 3.0, and platelet count of 91. Urinalysis shows trace of leukocyte esterase, 18 WBC with a slightly cloudy urine. Chest x-ray, x-ray of the tibia and fibula of the right lower extremity, right femur were unremarkable. CT angiogram shows no evidence of pulmonary embolism There is mild reticular/airspace opacities within the lung bases, may reflect atelectasis or developing pneumonia. Multiple mildly enlarged mediastinal lymph nodes are presumably reactive. CT of the abdomen and pelvis reveals: 1. Abnormal masslike thickening of the cervix and vagina. Malignancy is the diagnosis of exclusion. Recommend gynecology consultation. 2. Mildly enlarged left inguinal lymph node is nonspecific. Recommend follow- up. Patient admitted to ICU for septic shock and was on pressors and IV antibiotics Hospital Course to Date: 04/07/21- Patient is off pressors this am, on room air, alert but still confused. Still tachycardic this am, remains afebrile overnight, leukopenia improved, COVID swab pending. Will continue current IVF and IV Abx, ID consult pending. Worsen thrombocytopenia this am, no s/s of any bleeding, H&H is stable HEME consult pending. SCDs ordered for VTE proph. Electrolytes repleted. Will continue to trend lactic acid, CBC, and BMP. 04/08/21- Patient remains stable, on room air, more awake and alert this am. Remains febrile overnight, blood culture growing 4 out GPC in pairs and chains, continue current IV Abx, ID on consult. 2D echo also ordered to r/o endocarditis. D/W CCM patient is stable for transfer to the floor. 04/09/2021 Patient transferred to the telemetry floor Patient sitting in the bed and eating Complains of pain in the right ankle and the left knee Potassium is 2.7 04/10/2021 Right ankle and left knee pain better Objective - Constitutional Vitals: Vital Signs - 12hr 04/10/21 04/10/21 08:00 10:00 Temperature 99 F Pulse Rate 97 H Respiratory 20 18 Rate Blood Pressure 137/79 [Right] O2 Sat by Pulse 97 98 Oximetry General appearance: Present: no acute distress, well-nourished - EENT Eyes: PERRL, EOM intact ENT: hearing intact, clear oral mucosa Ears: bilateral: normal - Neck Neck: supple, normal ROM - Respiratory Respiratory effort: normal Respiratory: bilateral: CTA - Breasts Breasts: normal - Cardiovascular Heart rate: 78 Rhythm: regular Heart Sounds: Present: S1 & S2. Absent: gallop, rub Extremities: pulses intact, No edema, normal color, Full ROM - Gastrointestinal General gastrointestinal: Present: soft, non-tender, non-distended, normal bowel sounds - Genitourinary Female genitourinary: normal - Integumentary Integumentary: clear, warm, dry - Musculoskeletal Musculoskeletal: 1, strength equal bilaterally - Neurologic Neurologic: moves all extremities - Psychiatric Psychiatric: memory intact, appropriate mood/affect, intact judgment & insight - Allied health notes Allied health notes reviewed: nursing, case management - Labs CBC & Chem 7: 04/10/21 04:00 04/10/21 04:00 Labs: Abnormal lab results 04/10/21 04/10/21 04/10/21 Range/Units 04:00 04:00 05:00 Plt Count 64 L (140-440) K/mm3 [place] % (Auto) 11.2 H (0.0-7.3) % [place] # (Auto) 1.1 H (0.0-0.8) K/mm3 Seg Neutrophils % 72.5 H (40.0-70.0) % Seg Neuts % (Manual) 88.0 H (40.0-70.0) % Lymphocytes % (Manual) 5.0 L (13.4-35.0) % Seg Neutrophils # Man 8.4 H (1.8-7.7) K/mm3 Lymphocytes # (Manual) 0.5 L (1.2-5.4) K/mm3 Fibrinogen 558 H (211-480) mg/dl Creatinine 0.3 L (0.6-1.2) mg/dL HEART Score - HEART Score Troponin: Troponin T < 0.010 ng/mL (0.00-0.029) 04/06/21 21:27
[2021-04-10] MEDS: SODIUM CHLORIDE 0.9% 1000 ML 1,000 ML IV SCH (17:10)
[2021-04-10] MEDS: SENNOSIDES 8.6 MG TAB PO SCH (22:24)
[2021-04-11] MEDS: PENICILLIN G POTASSIUM 4 MIL.UNITS in SODIUM CHLORIDE 0.9% 50 ML IV SCH ×7 (03:26→21:41)
[2021-04-11] MEDS: CLINDAMYCIN 600 MG/50 mL 600 MG/50 ML BAG IV SCH ×3 (03:26→18:29)
[2021-04-11 06:02] LABS: Hematocrit 30.8 % (30.3-42.9); Hemoglobin 9.8 gm/dl (10.1-14.3); Mean Corpuscular HGB Conc 32 % (30-34); Mean Corpuscular Volume 88 fl (79-97); Platelet Count 109 K/mm3 (140-440); Red Blood Count 3.53 M/mm3 (3.65-5.03); Red Cell Distribution Width 14.5 % (13.2-15.2)
--- NOTE | 2021-04-11 08:13 | Hem/Onc Progress Note ---
Subjective Date of service: 04/11/21 Interval history: HEME progress note televisit via [employer] Dx: Thrombocytopenia 61[facility] with several days R leg pain presenting to the emergency room with right leg pain post recent fall and injured head, appearing confused as per family noted to have low platelet count and low WBC on admission-->improved over a few days, with left shift, bands --- Chest x-ray, x-ray of the tibia and fibula of the right lower extremity, right f emur were unremarkable CT angiogram shows no evidence of pulmonary embolism There is mild reticular/airspace opacities within the lung bases, may reflect atelectasis or developing pneumonia Multiple mildly enlarged mediastinal lymph nodes are presumably reactive CT of the abdomen and pelvis reveals: 1. Abnormal mass like thickening of the cervix and vagina. Malignancy is the diagnosis of exclusion. Recommend gynecology consultation. 2. Mildly enlarged left inguinal lymph node is nonspecific. Recommend follow- up. --- DATA REVIEWED BELOW IMP: Thrombocytopenia due to infection / ruling out endocarditis she may have underlying chronic ITP Thrombocytopenia improving daily doubt heme malignancy REC/PLAN: Daily CBC Appreciate DELIVERY DIRECTOR recommendations--outpatient follow-up for pap smear and cervical biopsy If malignant, rec outpatient DELIVERY DIRECTOR ONC follow-up, as there is no service at [facility] Laboratory Last Values WBC 14.2 K/mm3 (4.5-11.0) H 04/11/21 05:02 Hgb 9.8 gm/dl (10.1-14.3) L 04/11/21 05:02 Hct 30.8 % (30.3-42.9) 04/11/21 05:02 Plt Count 109 K/mm3 (140-440) L 04/11/21 05:02 PT 13.6 Sec. (12.2-14.9) 04/09/21 08:06 INR 0.94 (0.87-1.13) 04/09/21 08:06 APTT 31.9 Sec. (24.2-36.6) 04/09/21 08:06 Fibrinogen 558 mg/dl (211-480) H 04/10/21 05:00 D-Dimer > 24276 ng/mlDDU (0-234) H 04/06/21 17:29 Ferritin 660.2 ng/mL (10.0-200.0) H 04/06/21 23:20 Total Bilirubin 1.20 mg/dL (0.1-1.2) 04/06/21 17:29 AST 70 units/L (5-40) H 04/06/21 17:29 ALT 46 units/L (7-56) 04/06/21 17:29 Alkaline Phosphatase 94 units/L (35-129) 04/06/21 17:29 Lactate Dehydrogenase 322 units/L (91-180) H 04/06/21 23:20 C-Reactive Protein 22.30 mg/dL (0.00-1.30) H 04/06/21 23:20 Objective - Constitutional Vitals: Last Vital Signs Temp 97.7 F 04/11/21 03:54 Pulse 93 H 04/11/21 03:54 Resp 18 04/11/21 03:54 BP 152/97 04/11/21 03:54 Pulse Ox 98 04/11/21 03:54 - Labs Lab Results: Laboratory Results - last 24 hr 04/10/21 04/10/21 04/10/21 04:00 04:00 05:00 WBC 9.6 RBC 3.72 Hgb 10.6 Hct 32.5 MCV 87 MCH 28 MCHC 33 RDW 13.9 Plt Count 64 L [place] % (Auto) 11.2 H Eos % (Auto) 0.2 [place] # (Auto) 1.1 H Eos # (Auto) 0.0 Baso # (Auto) 0.0 Add Manual Diff Complete Total Counted 100 Seg Neutrophils % 72.5 H Seg Neuts % (Manual) 88.0 H Lymphocytes % (Manual) 5.0 L Reactive Lymphs % (Man) 3.0 Monocytes % (Manual) 3.0 Metamyelocytes % 1.0 Nucleated RBC % Not Reportable Seg Neutrophils # 7.1 Seg Neutrophils # Man 8.4 H Band Neutrophils # 0.0 Lymphocytes # (Manual) 0.5 L Abs React Lymphs (Man) 0.3 Monocytes # (Manual) 0.3 Eosinophils # (Manual) 0.0 Basophils # (Manual) 0.0 Metamyelocytes # 0.1 Myelocytes # 0.0 Promyelocytes # 0.0 Blast Cells # 0.0 WBC Morphology Not Reportable Hypersegmented Neuts Not Reportable Hyposegmented Neuts Not Reportable Hypogranular Neuts Not Reportable Smudge Cells Not Reportable Toxic Granulation Not Reportable Toxic Vacuolation Not Reportable Dohle Bodies Not Reportable Pelger-Huet Anomaly Not Reportable Rafal Rods Not Reportable Platelet Estimate Consistent w auto Clumped Platelets Not Reportable Plt Clumps, EDTA Not Reportable Large Platelets Not Reportable Giant Platelets Not Reportable Platelet Satelliting Not Reportable Plt Morphology Comment Not Reportable RBC Morphology Not Reportable Dimorphic RBCs Not Reportable Polychromasia Not Reportable Hypochromasia Not Reportable Poikilocytosis Not Reportable Anisocytosis Not Reportable Microcytosis Not Reportable Macrocytosis Not Reportable Spherocytes Not Reportable Pappenheimer Bodies Not Reportable Sickle Cells Not Reportable Target Cells Few Tear Drop Cells Not Reportable Ovalocytes Not Reportable Helmet Cells Not Reportable [place] Bodies Not Reportable [place] Rings Not Reportable [place] Cells Not Reportable Bite Cells Not Reportable Crenated Cell Not Reportable Elliptocytes Not Reportable Acanthocytes (Spur) Not Reportable Rouleaux Not Reportable Hemoglobin C Crystals Not Reportable Schistocytes Not Reportable Malaria parasites Not Reportable Gaudencio Bodies Not Reportable Hem Pathologist Commnt No Fibrinogen 558 H Sodium 138 Potassium 3.7 Chloride 104.3 Carbon Dioxide 22 Anion Gap 15 BUN 11 Creatinine 0.3 L Estimated GFR > 60 BUN/Creatinine Ratio 37 Glucose 82 Calcium 8.8 04/11/21 05:02 WBC 14.2 H RBC 3.53 L Hgb 9.8 L Hct 30.8 MCV 88 MCH 28 MCHC 32 RDW 14.5 Plt Count 109 L [place] % (Auto) Eos % (Auto) [place] # (Auto) Eos # (Auto) Baso # (Auto) Add Manual Diff Total Counted Seg Neutrophils % Seg Neuts % (Manual) Lymphocytes % (Manual) Reactive Lymphs % (Man) Monocytes % (Manual) Metamyelocytes % Nucleated RBC % Seg Neutrophils # Seg Neutrophils # Man Band Neutrophils # Lymphocytes # (Manual) Abs React Lymphs (Man) Monocytes # (Manual) Eosinophils # (Manual) Basophils # (Manual) Metamyelocytes # Myelocytes # Promyelocytes # Blast Cells # WBC Morphology Hypersegmented Neuts Hyposegmented Neuts Hypogranular Neuts Smudge Cells Toxic Granulation Toxic Vacuolation Dohle Bodies Pelger-Huet Anomaly Rafal Rods Platelet Estimate Clumped Platelets Plt Clumps, EDTA Large Platelets Giant Platelets Platelet Satelliting Plt Morphology Comment RBC Morphology Dimorphic RBCs Polychromasia Hypochromasia Poikilocytosis Anisocytosis Microcytosis Macrocytosis Spherocytes Pappenheimer Bodies Sickle Cells Target Cells Tear Drop Cells Ovalocytes Helmet Cells [place]ameed[place] Bodies [place] Rings [place] Cells Bite Cells Crenated Cell Elliptocytes Acanthocytes (Spur) Rouleaux Hemoglobin C Crystals Schistocytes Malaria parasites Gaudencio Bodies Hem Pathologist Commnt Fibrinogen Sodium Potassium Chloride Carbon Dioxide Anion Gap BUN Creatinine Estimated GFR BUN/Creatinine Ratio Glucose Calcium Medications & Allergies - Medications Allergies/Adverse Reactions: Allergies No Known Allergies Allergy (Unverified 04/06/21 17:27) Active Medications: Generic Name Dose Route Start Last Admin Trade Name Freq PRN Reason Stop Dose Admin Acetaminophen 650 mg 04/06/21 23:24 04/09/21 11:06 Acetaminophen 325 Mg Tab PO 650 mg Q6H PRN Administration Pain MILD(1-3)/Fever >100.5/VILLANUEVA Colchicine 0.6 mg 04/09/21 10:00 04/10/21 22:25 Colchicine 0.6 Mg Tab PO 0.6 mg BID MICHELLE Administration Famotidine 20 mg 04/07/21 22:00 04/10/21 22:24 Famotidine 20 Mg Tab PO 20 mg BID MICHELLE Administration Sodium Chloride 1,000 mls @ 75 mls/hr 04/08/21 12:07 04/10/21 17:10 Nacl 0.9% 1000 Ml IV 75 mls/hr DIRECT MICHELLE Administration Clindamycin HCl 600 mg in 50 mls @ 100 mls/hr 04/09/21 17:00 04/11/21 03:26 Cleocin 600 Mg/50 Ml IV 100 mls/hr Q8H MICHELLE Administration Protocol Penicillin G Potassium 4 mil. 50 mls @ 50 mls/hr 04/09/21 18:00 04/11/21 07:32 units/ Sodium Chloride IV 50 mls/hr Q4H MICHELLE Administration Magnesium Hydroxide 30 ml 04/06/21 23:24 Magnesium Hydroxide (Mom) Oral Liqd Udc PO Q4H PRN Constipation Ondansetron HCl 4 mg 04/06/21 23:24 Ondansetron 4 Mg/2 Ml Inj IV Q8H PRN Nausea And Vomiting Prednisone 20 mg 04/09/21 10:00 04/10/21 09:53 Prednisone 20 Mg Tab PO 20 mg QDAY MICHELLE Administration Senna 8.6 mg 04/07/21 22:00 04/10/21 22:24 Sennosides 8.6 Mg Tab PO 8.6 mg QHS MICHELLE Administration Sodium Chloride 10 ml 04/07/21 10:00 04/10/21 22:26 Sodium Chloride 0.9% 10 Ml Flush Syringe IV 10 ml BID MICHELLE Administration Sodium Chloride 10 ml 04/06/21 23:22 Sodium Chloride 0.9% 10 Ml Flush Syringe IV PRN PRN LINE FLUSH Tramadol HCl 50 mg 04/07/21 15:41 04/10/21 17:09 Tramadol 50 Mg Tab PO 50 mg Q6H PRN Administration Pain, Moderate (4-6)
[2021-04-11] MEDS: predniSONE 20 MG TAB PO SCH ×2 (08:37→10:00)
[2021-04-11] MEDS: FAMOTIDINE 20 MG TAB PO SCH ×3 (08:37→21:42)
[2021-04-11] MEDS: SODIUM CHLORIDE 0.9% 1000 ML 1,000 ML IV SCH (08:52)
[2021-04-11 10:51] LABS: Hypochromasia 1+; Platelet Estimate Consistent w Auto; Target Cells Rare
[2021-04-11 10:54] LABS: Band Neutrophils # (Manual) 0.3 K/mm3; Total Cells Counted 100
--- NOTE | 2021-04-11 14:07 | Progress Note ---
Assessment and Plan Cultures: SARS-CoV-2 PCR negative. Blood culture 04/06/2021 with Group A Strep 4 out of 4 bottles. Blood culture 04/09/2021 no growth so far Urine culture 04/06/2021 no growth. Assessment: 61-year-old female with no past medical history admitted on 04/06/2021 secondary to few days of weakness, poor appetite and a fall at home complaining of right leg pain: #Severe sepsis: present on admission with fever, neutropenia, elevated lactate; source GPC bacteremia. CRP 22. Procalcitonin 8.6. #Group A Strep bacteremia: Of unclear etiology. ? Bilateral foot cellulitis. Transthoracic echo without endocarditis. #Bilateral pneumonia: CTA without PE, reticular airspace disease in the bases, mediastinal lymphadenopathies. SARS neg. ?lung emboli. #UTI: Urinalysis with 18 WBCs and trace leukocyte esterase. #Elevated LFTs: due to sepsis #Neutropenia/thrombocytopenia: due to sepsis vs malignancy. #Cervical mass: ? cancer Recommendations: - Follow-up repeat blood cultures, negative so far. - Continue penicillin G IV and clindamycin. Stop clindamycin after 9 doses. - Monitor fever - When blood cultures engative x48 hours could consider midline and penicillin as outpatient - Leukocytosis today may be due to steroids. Will follow. Jewels Weber MD [facility] ([facility] O: [phone] F: [phone] Subjective Date of service: 04/11/21 Principal diagnosis: Septic shock Interval history: Afebrile over the past 48 hours, white count increased today to 14.2. Blood cultures no growth so far. Imaging personally reviewed: Knee x-ray: Effusion present. Objective - Exam Narrative Exam: General appearance: Alert in NAD pleasant Eyes: anicteric sclerae, moist conjunctivae; no lid-lag; PERRLA HENT: Normocephalic, Atraumatic; normal external ears, nares open, oropharynx clear Neck: supple, tracheal midline, no JVD Lungs: CTA CV: RRR no murmur Abdomen: Soft, RUQ tenderness Extremities: Right ankle edema and tenderness, left knee edema and tenderness Skin: No rash. Psych: no agitated Neuro: alert and oriented x 3. Moving all extermities - Constitutional Vitals: Vital Signs Temp Pulse Resp BP Pulse Ox 97.9 F 93 H 18 150/95 93 04/11/21 11:43 04/11/21 11:43 04/11/21 11:43 04/11/21 11:43 04/11/21 11:59 Temperature -Last 24 Hours Temperature 97.9 F Temperature 97.7 F Temperature 98.2 F Temperature 98.0 F Temperature 98 F - Labs CBC & Chem 7: 04/11/21 05:02 04/10/21 04:00 Labs: Abnormal lab results 04/11/21 Range/Units 05:02 WBC 14.2 H (4.5-11.0) K/mm3 RBC 3.53 L (3.65-5.03) M/mm3 Hgb 9.8 L (10.1-14.3) gm/dl Plt Count 109 L (140-440) K/mm3 Seg Neuts % (Manual) 81.0 H (40.0-70.0) % Lymphocytes % (Manual) 8.0 L (13.4-35.0) % Seg Neutrophils # Man 11.5 H (1.8-7.7) K/mm3 Lymphocytes # (Manual) 1.1 L (1.2-5.4) K/mm3 Monocytes # (Manual) 0.9 H (0.0-0.8) K/mm3
[2021-04-11] MEDS: COLCHICINE 0.6 MG TAB PO SCH ×2 (16:46→21:42)
--- NOTE | 2021-04-11 18:57 | Progress Note ---
Assessment and Plan 61-year-old female with no significant past medical history presenting to the emergency room today with right leg pain and progressive loss of appetite over the past few days. Patient states that she fell sometime yesterday hurt her leg. She also indicates that she struck her head but denies any headache and denies any dizziness. According to family members who were by the bedside, patient was said to appear little confused today. Patient denies any fever or chills, no chest pain or shortness of breath, no nausea or vomiting, no diarrhea and no abdominal pain. She denies any hematuria or dysuria. Denies any bright red blood per rectum. Denies any melena. Patient denies any sick contacts and no recent travel. Denies any weight loss, denies any night sweats. She denies any contact with anyone with COVID-19. She however admits that she has not had the COVID-19 vaccination. Upon arrival in the emergency room , she appeared tachycardic and hypotensive. She received boluses of IV fluid. Work-up reveals lactic acid of 4.0, BNP of 1182, potassium level of 3.2, elevated D-dimer of greater than 10,000. WBC count of 3.0, and platelet count of 91. Urinalysis shows trace of leukocyte esterase, 18 WBC with a slightly cloudy urine. Chest x-ray done 04/06/21 reported No acute findings. CT angiogram shows no evidence of pulmonary embolism There is mild reticular/airspace opacities within the lung bases, may reflect atelectasis or developing pneumonia. Multiple mildly enlarged mediastinal lymph nodes are presumably reactive. CT of the abdomen and pelvis reveals: 1. Abnormal masslike thickening of the cervix and vagina. Malignancy is the diagnosis of exclusion. Recommend gynecology consultation. 2. Mildly enlarged left inguinal lymph node is nonspecific. Recommend follow- up. Patient resting on room air. O2 saturation 96%. denies chest pain, shortness of breath or calf. Complaining leg pains. Patient afebrile. Has leukocytosis. Blood pressure 150/86. Pulse 92. respirations 16. Patient is on Pencillin G, Clindamycin, Prednisone Famotidine and tramadol - Patient Problems (1) Hypokalemia Current Visit: Yes Status: Acute Plan to address problem: Corrected, Recent K+ 4.7. (2) Multifocal pneumonia Current Visit: Yes Status: Acute Plan to address problem: Patient is on Pencillin G. and Clindamycin. (3) Septic shock Current Visit: Yes Status: Acute Plan to address problem: Blood pressure improved with fluids. Patient is on Pencillin G. and Clindamycin. (4) Suspected COVID-19 virus infection Current Visit: Yes Status: Acute Plan to address problem: Hooper virus PCR negative. (5) Thrombocytopenia Current Visit: Yes Status: Acute Plan to address problem: Improving. To days platelet count is 109,00. Subjective Date of service: 04/11/21 Principal diagnosis: Septic shock Interval history: 61-year-old female with no significant past medical history presenting to the emergency room today with right leg pain and progressive loss of appetite over the past few days. Patient states that she fell sometime yesterday hurt her leg. She also indicates that she struck her head but denies any headache and denies any dizziness. According to family members who were by the bedside, patient was said to appear little confused today. Patient denies any fever or chills, no chest pain or shortness of breath, no dulce sea or vomiting, no diarrhea and no abdominal pain. She denies any hematuria or dysuria. Denies any bright red blood per rectum. Denies any melena. Patient denies any sick contacts and no recent travel. Denies any weight loss, denies any night sweats. She denies any contact with anyone with COVID-19. She however admits that she has not had the COVID-19 vaccination. Upon arrival in the emergency room , she appeared tachycardic and hypotensive. She received boluses of IV fluid. Work-up reveals lactic acid of 4.0, BNP of 1182, potassium level of 3.2, elevated D-dimer of greater than 10,000. WBC count of 3.0, and platelet count of 91. Urinalysis shows trace of leukocyte esterase, 18 WBC with a slightly cloudy urine. Chest x-ray done 04/06/21 reported No acute findings. CT angiogram shows no evidence of pulmonary embolism There is mild reticular/airspace opacities within the lung bases, may reflect atelectasis or developing pneumonia. Multiple mildly enlarged mediastinal lymph nodes are presumably reactive. CT of the abdomen and pelvis reveals: 1. Abnormal masslike thickening of the cervix and vagina. Malignancy is the diagnosis of exclusion. Recommend gynecology consultation. 2. Mildly enlarged left inguinal lymph node is nonspecific. Recommend follow- up. Patient resting on room air. O2 saturation 96%. denies chest pain, shortness of breath or calf. Complaining leg pains. Patient afebrile. Has leukocytosis. Blood pressure 150/86. Pulse 92. respirations 16. Patient is on Pencillin G, Clindamycin,Prednisone Famotidine and tramadol. Objective Vital Signs - 12hr 04/11/21 04/11/21 11:43 11:59 Temperature 97.9 F Pulse Rate 93 H Respiratory 18 Rate Blood Pressure 150/95 [Right] O2 Sat by Pulse 98 93 Oximetry Constitutional: no acute distress, alert, other Eyes: non-icteric ENT: oropharynx moist Neck: supple, no lymphadenopathy Effort: normal Ascultation: Bilateral: rhonchi (Occasional) Cardiovascular: regular rate and rhythm, other (S1,S2) Gastrointestinal: normoactive bowel sounds, soft, non-tender, non-distended Integumentary: normal Extremities: edema, other (Complaining leg pain.) Neurologic: normal mental status, non-focal exam, pupils equal and round, motor strength normal and Psychiatric: mood appropriate, affect normal CBC and BMP: 04/12/21 13:42 04/12/21 13:42 ABG, PT/INR, D-dimer: PT/INR, D-dimer PT 13.6 Sec. (12.2-14.9) 04/09/21 08:06 INR 0.94 (0.87-1.13) 04/09/21 08:06 D-Dimer > 71767 ng/mlDDU (0-234) H 04/06/21 17:29 Abnormal lab findings: Abnormal Labs 04/06/21 04/06/21 04/06/21 17:29 17:29 17:29 WBC 3.0 L RBC Hgb Plt Count 91 L Pickett % (Auto) Pickett # (Auto) Seg Neutrophils % Seg Neuts % (Manual) 96.0 H Lymphocytes % (Manual) 4.0 L Nucleated RBC % Seg Neutrophils # Man Lymphocytes # (Manual) 0.1 L Monocytes # (Manual) Fibrinogen D-Dimer > 16749 H Sodium 131 L Potassium 3.2 L Chloride 96.0 L Carbon Dioxide 20 L BUN 22 H Creatinine Glucose 129 H Lactic Acid Uric Acid Calcium Phosphorus Ferritin AST 70 H Lactate Dehydrogenase C-Reactive Protein NT-Pro-B Natriuret Pep Albumin 3.7 L Urine WBC (Auto) Rheumatoid Factor 04/06/21 04/06/21 04/06/21 17:29 21:27 21:27 WBC RBC Hgb Plt Count Pickett % (Auto) Pickett # (Auto) Seg Neutrophils % Seg Neuts % (Manual) Lymphocytes % (Manual) Nucleated RBC % Seg Neutrophils # Man Lymphocytes # (Manual) Monocytes # (Manual) Fibrinogen D-Dimer Sodium Potassium Chloride Carbon Dioxide BUN Creatinine Glucose Lactic Acid 4.00 H* 3.60 H* Uric Acid Calcium Phosphorus Ferritin AST Lactate Dehydrogenase C-Reactive Protein NT-Pro-B Natriuret Pep 1182 H Albumin Urine WBC (Auto) Rheumatoid Factor 04/06/21 04/06/21 04/06/21 21:37 23:20 23:20 WBC RBC Hgb Plt Count Pickett % (Auto) Pickett # (Auto) Seg Neutrophils % Seg Neuts % (Manual) Lymphocytes % (Manual) Nucleated RBC % Seg Neutrophils # Man Lymphocytes # (Manual) Monocytes # (Manual) Fibrinogen D-Dimer Sodium Potassium Chloride Carbon Dioxide BUN Creatinine Glucose Lactic Acid 4.40 H* Uric Acid Calcium Phosphorus Ferritin AST Lactate Dehydrogenase 322 H C-Reactive Protein 22.30 H NT-Pro-B Natriuret Pep Albumin Urine WBC (Auto) 18.0 H Rheumatoid Factor 04/06/21 04/07/21 04/07/21 23:20 04:31 04:31 WBC RBC Hgb Plt Count 61 L Pickett % (Auto) Pickett # (Auto) Seg Neutrophils % Seg Neuts % (Manual) Lymphocytes % (Manual) 1.0 L Nucleated RBC % Seg Neutrophils # Man Lymphocytes # (Manual) 0.0 L Monocytes # (Manual) Fibrinogen D-Dimer Sodium Potassium 3.2 L Chloride 108.4 H Carbon Dioxide 18 L BUN Creatinine 0.5 L D Glucose 120 H Lactic Acid Uric Acid Calcium 8.1 L D Phosphorus Ferritin 660.2 H AST Lactate Dehydrogenase C-Reactive Protein NT-Pro-B Natriuret Pep Albumin Urine WBC (Auto) Rheumatoid Factor 04/07/21 04/08/21 04/08/21 04:31 05:58 05:58 WBC RBC Hgb Plt Count 57 L Pickett % (Auto) Pickett # (Auto) Seg Neutrophils % Seg Neuts % (Manual) Lymphocytes % (Manual) Nucleated RBC % Seg Neutrophils # Man Lymphocytes # (Manual) Monocytes # (Manual) Fibrinogen D-Dimer Sodium 134 L Potassium 3.5 L Chloride Carbon Dioxide 18 L BUN Creatinine 0.5 L Glucose 112 H Lactic Acid 2.40 H* Uric Acid Calcium Phosphorus 1.70 L Ferritin AST Lactate Dehydrogenase C-Reactive Protein NT-Pro-B Natriuret Pep Albumin Urine WBC (Auto) Rheumatoid Factor 04/09/21 04/09/21 04/09/21 04:40 04:40 08:06 WBC RBC Hgb Plt Count 46 L Pickett % (Auto) Pickett # (Auto) Seg Neutrophils % Seg Neuts % (Manual) Lymphocytes % (Manual) Nucleated RBC % Seg Neutrophils # Man Lymphocytes # (Manual) Monocytes # (Manual) Fibrinogen 591 H D-Dimer Sodium Potassium 2.7 L* D Chloride Carbon Dioxide 20 L BUN Creatinine 0.4 L Glucose Lactic Acid Uric Acid Calcium Phosphorus 1.90 L Ferritin AST Lactate Dehydrogenase C-Reactive Protein NT-Pro-B Natriuret Pep Albumin Urine WBC (Auto) Rheumatoid Factor 04/09/21 04/09/21 04/09/21 08:06 10:00 10:00 WBC RBC Hgb Plt Count 49 L Pickett % (Auto) Pickett # (Auto) Seg Neutrophils % Seg Neuts % (Manual) 86.0 H Lymphocytes % (Manual) 6.0 L Nucleated RBC % 1.0 H Seg Neutrophils # Man Lymphocytes # (Manual) 0.4 L Monocytes # (Manual) Fibrinogen D-Dimer Sodium Potassium Chloride Carbon Dioxide BUN Creatinine Glucose Lactic Acid Uric Acid 2.1 L Calcium Phosphorus Ferritin AST Lactate Dehydrogenase C-Reactive Protein NT-Pro-B Natriuret Pep Albumin Urine WBC (Auto) Rheumatoid Factor 15 H 04/10/21 04/10/21 04/10/21 04:00 04:00 05:00 WBC RBC Hgb Plt Count 64 L Pickett % (Auto) 11.2 H Pickett # (Auto) 1.1 H Seg Neutrophils % 72.5 H Seg Neuts % (Manual) 88.0 H Lymphocytes % (Manual) 5.0 L Nucleated RBC % Seg Neutrophils # Man 8.4 H Lymphocytes # (Manual) 0.5 L Monocytes # (Manual) Fibrinogen 558 H D-Dimer Sodium Potassium Chloride Carbon Dioxide BUN Creatinine 0.3 L Glucose Lactic Acid Uric Acid Calcium Phosphorus Ferritin AST Lactate Dehydrogenase C-Reactive Protein NT-Pro-B Natriuret Pep Albumin Urine WBC (Auto) Rheumatoid Factor 04/11/21 05:02 WBC 14.2 H RBC 3.53 L Hgb 9.8 L Plt Count 109 L Pickett % (Auto) Pickett # (Auto) Seg Neutrophils % Seg Neuts % (Manual) 81.0 H Lymphocytes % (Manual) 8.0 L Nucleated RBC % Seg Neutrophils # Man 11.5 H Lymphocytes # (Manual) 1.1 L Monocytes # (Manual) 0.9 H Fibrinogen D-Dimer Sodium Potassium Chloride Carbon Dioxide BUN Creatinine Glucose Lactic Acid Uric Acid Calcium Phosphorus Ferritin AST Lactate Dehydrogenase C-Reactive Protein NT-Pro-B Natriuret Pep Albumin Urine WBC (Auto) Rheumatoid Factor Chest x-ray: report reviewed, image reviewed Additional Studies: CHEST 1 VIEW 04/06/2021 5:52 PM INDICATION / CLINICAL INFORMATION: hypotension. COMPARISON: None available. FINDINGS: SUPPORT DEVICES: None. HEART / MEDIASTINUM: No significant abnormality. LUNGS / PLEURA: No significant pulmonary or pleural abnormality. No pneumothorax. ADDITIONAL FINDINGS: No significant additional findings. IMPRESSION: 1. No acute findings. Allied health notes reviewed: nursing
[2021-04-11] MEDS: SENNOSIDES 8.6 MG TAB PO SCH (21:42)
[2021-04-12] MEDS: CLINDAMYCIN IV SCH ×2 (01:31→09:41)
[2021-04-12] MEDS: DEXTROSE 5% IV SCH ×2 (01:31→09:41)
[2021-04-12] MEDS: PENICILLIN G POTASSIUM 4 MIL.UNITS in SODIUM CHLORIDE 0.9% 50 ML IV SCH ×6 (01:31→22:35)
[2021-04-12] MEDS: WATER IV SCH ×2 (01:31→09:41)
--- NOTE | 2021-04-12 07:02 | Progress Note ---
Assessment and Plan Assessment and Plan Acute arthritis Uric acid levels are low Rheumatoid factor positive dsDNA and CCP are pending Orthopedic consult requested Possible septic arthritis #Acute Metabolic Encephalopathy Improved Afebrile Alert and oriented #Septic Shock Continue IV antibiotics Off pressors #Hypotension- resolved #Hypokalemia Supplemented #Hypophosphatemia Supplemented #Cervical Mass [employer] consultation #Thrombocytopenia Persistent #Leukopenia Improving #Multifocal pneumonia Continue IV antibiotics #Urinary Tract Infection (UTI) Continue IV antibiotics #COVID PUI Negative #Lactic Acidosis Improved DVT prophylaxis On SCDs and GI prophylaxis Discharge planning issues Physical therapy and OT Patient may be discharged if septic arthritis is ruled out Subjective Date of service: 04/11/21 Principal diagnosis: Septic shock Interval history: 61-year-old female with no significant past medical history presenting to the emergency room today with right leg pain and progressive loss of appetite over the past few days. Patient states that she fell sometime yesterday hurt her leg. She also indicates that she struck her head but denies any headache and denies any dizziness. According to family members who were by the bedside, patient was said to appear little confused today. Patient denies any fever or chills, no chest pain or shortness of breath, no nausea or vomiting, no diarrhea and no abdominal pain. She denies any hematuria or dysuria. Denies any bright red blood per rectum. Denies any melena. Patient denies any sick contacts and no recent travel. Denies any weight loss, denies any night sweats. She denies any contact with anyone with COVID-19. She however admits that she has not had the COVID-19 vaccination. Upon arrival in the emergency room today, she appeared tachycardic and hypotensive. She received boluses of IV fluid. Work-up reveals lactic acid of 4.0, BNP of 1182, potassium level of 3.2, elevated D-dimer of greater than 10,000. WBC count of 3.0, and platelet count of 91. Urinalysis shows trace of leukocyte esterase, 18 WBC with a slightly cloudy urine. Chest x-ray, x-ray of the tibia and fibula of the right lower extremity, right femur were unremarkable. CT angiogram shows no evidence of pulmonary embolism There is mild reticular/airspace opacities within the lung bases, may reflect atelectasis or developing pneumonia. Multiple mildly enlarged mediastinal lymph nodes are presumably reactive. CT of the abdomen and pelvis reveals: 1. Abnormal masslike thickening of the cervix and vagina. Malignancy is the diagnosis of exclusion. Recommend gynecology consultation. 2. Mildly enlarged left inguinal lymph node is nonspecific. Recommend follow- up. Patient admitted to ICU for septic shock and was on pressors and IV antibiotics Hospital Course to Date: 04/07/21- Patient is off pressors this am, on room air, alert but still confused. Still tachycardic this am, remains afebrile overnight, leukopenia improved, COVID swab pending. Will continue current IVF and IV Abx, ID consult pending. Worsen thrombocytopenia this am, no s/s of any bleeding, H&H is stable HEME consult pending. SCDs ordered for VTE proph. Electrolytes repleted. Will continue to trend lactic acid, CBC, and BMP. 04/08/21- Patient remains stable, on room air, more awake and alert this am. Remains febrile overnight, blood culture growing 4 out GPC in pairs and chains, continue current IV Abx, ID on consult. 2D echo also ordered to r/o endocarditis. D/W CCM patient is stable for transfer to the floor. 04/09/2021 Patient transferred to the telemetry floor Patient sitting in the bed and eating Complains of pain in the right ankle and the left knee Potassium is 2.7 04/10/2021 Right ankle and left knee pain better 04/11/2021 Continues to have right ankle pain Continues to have left knee pain Unable to walk because of the pain Objective - Constitutional Vitals: Vital Signs - 12hr 04/11/21 04/11/21 04/11/21 19:49 22:00 23:48 Temperature 98.5 F 98.1 F Pulse Rate 92 H 90 Respiratory 16 15 Rate Blood Pressure 150/86 144/78 O2 Sat by Pulse 96 97 93 Oximetry 04/12/21 03:51 Temperature 98.0 F Pulse Rate 93 H Respiratory 14 Rate Blood Pressure 145/85 O2 Sat by Pulse 97 Oximetry General appearance: Present: no acute distress, well-nourished - EENT Eyes: PERRL, EOM intact ENT: hearing intact, clear oral mucosa Ears: bilateral: normal - Neck Neck: supple, normal ROM - Respiratory Respiratory effort: normal Respiratory: bilateral: CTA - Breasts Breasts: normal - Cardiovascular Heart rate: 78 Rhythm: regular Heart Sounds: Present: S1 & S2. Absent: gallop, rub Extremities: pulses intact, No edema, normal color, Full ROM, abnormal (Left knee swollen and warm to touch) Extremity abnormal: other (Right ankle swollen and warm to touch) - Gastrointestinal General gastrointestinal: Present: soft, non-tender, non-distended, normal bowel sounds - Genitourinary Female genitourinary: normal - Integumentary Integumentary: clear, warm, dry - Musculoskeletal Musculoskeletal: 1, strength equal bilaterally - Neurologic Neurologic: moves all extremities - Psychiatric Psychiatric: memory intact, appropriate mood/affect, intact judgment & insight - Labs CBC & Chem 7: 04/11/21 05:02 04/10/21 04:00 Labs: Abnormal lab results 04/11/21 Range/Units 05:02 Seg Neuts % (Manual) 81.0 H (40.0-70.0) % Lymphocytes % (Manual) 8.0 L (13.4-35.0) % Seg Neutrophils # Man 11.5 H (1.8-7.7) K/mm3 Lymphocytes # (Manual) 1.1 L (1.2-5.4) K/mm3 Monocytes # (Manual) 0.9 H (0.0-0.8) K/mm3 HEART Score - HEART Score Troponin: Troponin T < 0.010 ng/mL (0.00-0.029) 04/06/21 21:27
--- NOTE | 2021-04-12 09:15 | Progress Note ---
Assessment and Plan Assessment and plan: HPI: 61-year-old female with no significant past medical history presenting to the emergency room today with right leg pain and progressive loss of appetite over the past few days. Patient states that she fell sometime yesterday hurt her leg. She also indicates that she struck her head but denies any headache and denies any dizziness. According to family members who were by the bedside, patient was said to appear little confused today.Patient denies any fever or chills, no chest pain or shortness of breath, no nausea or vomiting, no diarrhea and no abdominal pain. She denies any hematuria or dysuria. Denies any bright red blood per rectum. Denies any melena.Patient denies any sick contacts and no recent travel. Denies any weight loss, denies any night sweats. She denies any contact with anyone with COVID-19. She however admits that she has not had the COVID-19 vaccination.Upon arrival in the emergency room today, she appeared tachycardic and hypotensive. She received boluses of IV fluid.Work-up reveals lactic acid of 4.0, BNP of 1182, potassium level of 3.2, elevated D-dimer of greater than 10,000. WBC count of 3.0, and platelet count of 91.Urinalysis shows trace of leukocyte esterase, 18 WBC with a slightly cloudy urine. Patient was admitted to ICU for septic shock and was on pressors and IV antibiotics. Now off pressors. Currently on medical floor. Hospital Course to Date: 04/07/21- Patient is off pressors this am, on room air, alert but still confused. Still tachycardic this am, remains afebrile overnight, leukopenia improved, COVID swab pending. Will continue current IVF and IV Abx, ID consult pending. Worsen thrombocytopenia this am, no s/s of any bleeding, H&H is stable HEME consult pending. SCDs ordered for VTE proph. Electrolytes repleted. Will continue to trend lactic acid, CBC, and BMP. 04/08/21- Patient remains stable, on room air, more awake and alert this am. Remains febrile overnight, blood culture growing 4 out GPC in pairs and chains, continue current IV Abx, ID on consult. 2D echo also ordered to r/o endocarditi s. D/W CCM patient is stable for transfer to the floor. 04/09/2021 Patient transferred to the telemetry floor Patient sitting in the bed and eating Complains of pain in the right ankle and the left knee Potassium is 2.7 04/10/2021 Right ankle and left knee pain better 04/11/2021 Continues to have right ankle pain Continues to have left knee pain Unable to walk because of the pain 04/12/2021: WBc 14.2 yesterday, ID suspects steroid induced. right ankle still remains swollen, warm, tender. radiographic imaging thus far has been nondiagnostic. Could benefit from athrocentesis for further workup but will await orthopedic recommendations. If Bcx negative for 48 hrs, will order midline for OP abx. Assessment and Plan #Acute arthritis Uric acid levels are low Rheumatoid factor positive dsDNA and CCP are pending Orthopedic consult requested Possible septic arthritis Chest x-ray, x-ray of the tibia and fibula of the right lower extremity, right femur were unremarkable. #Acute Metabolic Encephalopathy Improved Afebrile Alert and oriented #Septic Shock Continue IV antibiotics Off pressors CT angiogram shows no evidence of pulmonary embolism There is mild reticular/airspace opacities within the lung bases, may reflect atelectasis or developing pneumonia. Multiple mildly enlarged mediastinal lymph nodes are presumably reactive. #Hypotension- resolved #Hypokalemia Supplemented #Hypophosphatemia Supplemented #Cervical Mass SENIOR PL [employer] consultation CT of the abdomen and pelvis reveals: 1. Abnormal masslike thickening of the cervix and vagina. Malignancy is the diagnosis of exclusion. Recommend gynecology consultation. 2. Mildly enlarged left inguinal lymph node is nonspecific. Recommend follow- up. #Thrombocytopenia Persistent #Leukopenia Improving #Multifocal pneumonia Continue IV antibiotics #Urinary Tract Infection (UTI) Continue IV antibiotics #COVID PUI Negative #Lactic Acidosis Improved DVT prophylaxis On SCDs and GI prophylaxis Discharge planning issues Physical therapy and OT Patient may be discharged if septic arthritis is ruled out History Interval history: Patient primary complaint on encounter this AM is rt leg swelling/pain. Hospitalist Physical - Physical exam Narrative exam: General appearance: Alert in NAD pleasant Eyes: anicteric sclerae, moist conjunctivae; no lid-lag; PERRLA HENT: Normocephalic, Atraumatic; normal external ears, nares open, oropharynx clear Neck: supple, tracheal midline, no JVD Lungs: CTA CV: RRR no murmur Abdomen: Soft, RUQ tenderness Extremities: Right ankle edema, warm, and tender (remains very painful). left knee edema and tenderness (less painful today) Skin: No rash. Psych: no agitated Neuro: alert and oriented x 3. Moving all extermities - Constitutional Vitals: Temp Pulse Resp BP Pulse Ox 98.8 F 99 H 20 141/88 95 04/12/21 08:02 04/12/21 08:02 04/12/21 08:02 04/12/21 08:02 04/12/21 08:02 General appearance: Present: no acute distress, well-nourished HEART Score - HEART Score Troponin: Troponin T < 0.010 ng/mL (0.00-0.029) 04/06/21 21:27 Results - Labs CBC & Chem 7: 04/11/21 05:02 04/10/21 04:00 Labs: Laboratory Last Values WBC 14.2 K/mm3 (4.5-11.0) H 04/11/21 05:02 RBC 3.53 M/mm3 (3.65-5.03) L 04/11/21 05:02 Hgb 9.8 gm/dl (10.1-14.3) L 04/11/21 05:02 Hct 30.8 % (30.3-42.9) 04/11/21 05:02 MCV 88 fl (79-97) 04/11/21 05:02 MCH 28 pg (28-32) 04/11/21 05:02 MCHC 32 % (30-34) 04/11/21 05:02 RDW 14.5 % (13.2-15.2) 04/11/21 05:02 Plt Count 109 K/mm3 (140-440) L 04/11/21 05:02 [place] % (Auto) 11.2 % (0.0-7.3) H 04/10/21 04:00 Eos % (Auto) 0.2 % (0.0-4.3) 04/10/21 04:00 [place] # (Auto) 1.1 K/mm3 (0.0-0.8) H 04/10/21 04:00 Eos # (Auto) 0.0 K/mm3 (0.0-0.4) 04/10/21 04:00 Baso # (Auto) 0.0 K/mm3 (0.0-0.1) 04/10/21 04:00 Add Manual Diff Complete 04/11/21 05:02 Total Counted 100 04/11/21 05:02 Seg Neutrophils % 72.5 % (40.0-70.0) H 04/10/21 04:00 Seg Neuts % (Manual) 81.0 % (40.0-70.0) H 04/11/21 05:02 Band Neutrophils % 2.0 % 04/11/21 05:02 Lymphocytes % (Manual) 8.0 % (13.4-35.0) L 04/11/21 05:02 Reactive Lymphs % (Man) 2.0 % 04/11/21 05:02 Monocytes % (Manual) 6.0 % (0.0-7.3) 04/11/21 05:02 Eosinophils % (Manual) 1.0 % (0.0-4.3) 04/11/21 05:02 Metamyelocytes % 1.0 % 04/10/21 04:00 Nucleated RBC % Not Reportable 04/11/21 05:02 Seg Neutrophils # 7.1 K/mm3 (1.8-7.7) 04/10/21 04:00 Seg Neutrophils # Man 11.5 K/mm3 (1.8-7.7) H 04/11/21 05:02 Band Neutrophils # 0.3 K/mm3 04/11/21 05:02 Lymphocytes # (Manual) 1.1 K/mm3 (1.2-5.4) L 04/11/21 05:02 Abs React Lymphs (Man) 0.3 K/mm3 04/11/21 05:02 Monocytes # (Manual) 0.9 K/mm3 (0.0-0.8) H 04/11/21 05:02 Eosinophils # (Manual) 0.1 K/mm3 (0.0-0.4) 04/11/21 05:02 Basophils # (Manual) 0.0 K/mm3 (0.0-0.1) 04/11/21 05:02 Metamyelocytes # 0.0 K/mm3 04/11/21 05:02 Myelocytes # 0.0 K/mm3 04/11/21 05:02 Promyelocytes # 0.0 K/mm3 04/11/21 05:02 Blast Cells # 0.0 K/mm3 04/11/21 05:02 WBC Morphology Not Reportable 04/11/21 05:02 Hypersegmented Neuts Not Reportable 04/11/21 05:02 Hyposegmented Neuts Not Reportable 04/11/21 05:02 Hypogranular Neuts Not Reportable 04/11/21 05:02 Smudge Cells Not Reportable 04/11/21 05:02 Toxic Granulation Not Reportable 04/11/21 05:02 Toxic Vacuolation Not Reportable 04/11/21 05:02 Dohle Bodies Not Reportable 04/11/21 05:02 Pelger-Huet Anomaly Not Reportable 04/11/21 05:02 Rafal Rods Not Reportable 04/11/21 05:02 Platelet Estimate Consistent w auto 04/11/21 05:02 Clumped Platelets Not Reportable 04/11/21 05:02 Plt Clumps, EDTA Not Reportable 04/11/21 05:02 Large Platelets Not Reportable 04/11/21 05:02 Giant Platelets Not Reportable 04/11/21 05:02 Platelet Satelliting Not Reportable 04/11/21 05:02 Plt Morphology Comment Not Reportable 04/11/21 05:02 RBC Morphology Not Reportable 04/11/21 05:02 Dimorphic RBCs Not Reportable 04/11/21 05:02 Polychromasia Not Reportable 04/11/21 05:02 Hypochromasia 1+ 04/11/21 05:02 Poikilocytosis Not Reportable 04/11/21 05:02 Anisocytosis Not Reportable 04/11/21 05:02 Microcytosis Not Reportable 04/11/21 05:02 Macrocytosis Not Reportable 04/11/21 05:02 Spherocytes Not Reportable 04/11/21 05:02 Pappenheimer Bodies Not Reportable 04/11/21 05:02 Sickle Cells Not Reportable 04/11/21 05:02 Target Cells Rare 04/11/21 05:02 Tear Drop Cells Not Reportable 04/11/21 05:02 Ovalocytes Not Reportable 04/11/21 05:02 Helmet Cells Not Reportable 04/11/21 05:02 [place] Bodies Not Reportable 04/11/21 05:02 [place] Rings Not Reportable 04/11/21 05:02 [place] Cells Not Reportable 04/11/21 05:02 Bite Cells Not Reportable 04/11/21 05:02 Crenated Cell Not Reportable 04/11/21 05:02 Elliptocytes Not Reportable 04/11/21 05:02 Acanthocytes (Spur) Not Reportable 04/11/21 05:02 Rouleaux Not Reportable 04/11/21 05:02 Hemoglobin C Crystals Not Reportable 04/11/21 05:02 Schistocytes Not Reportable 04/11/21 05:02 Malaria parasites Not Reportable 04/11/21 05:02 Gaudencio Bodies Not Reportable 04/11/21 05:02 Hem Pathologist Commnt No 04/11/21 05:02 PT 13.6 Sec. (12.2-14.9) 04/09/21 08:06 INR 0.94 (0.87-1.13) 04/09/21 08:06 APTT 31.9 Sec. (24.2-36.6) 04/09/21 08:06 Fibrinogen 558 mg/dl (211-480) H 04/10/21 05:00 D-Dimer > 35852 ng/mlDDU (0-234) H 04/06/21 17:29 Sodium 138 mmol/L (137-145) 04/10/21 04:00 Potassium 3.7 mmol/L (3.6-5.0) 04/10/21 04:00 Chloride 104.3 mmol/L (98-107) 04/10/21 04:00 Carbon Dioxide 22 mmol/L (22-30) 04/10/21 04:00 Anion Gap 15 mmol/L 04/10/21 04:00 BUN 11 mg/dL (7-17) 04/10/21 04:00 Creatinine 0.3 mg/dL (0.6-1.2) L 04/10/21 04:00 Estimated GFR > 60 ml/min 04/10/21 04:00 BUN/Creatinine Ratio 37 % 04/10/21 04:00 Glucose 82 mg/dL (65-100) 04/10/21 04:00 Lactic Acid 1.50 mmol/L (0.7-2.0) 04/08/21 05:58 Uric Acid 2.1 mg/dL (3.5-7.6) L 04/09/21 10:00 Calcium 8.8 mg/dL (8.4-10.2) 04/10/21 04:00 Phosphorus 1.90 mg/dL (2.5-4.5) L 04/09/21 04:40 Magnesium 2.00 mg/dL (1.7-2.3) 04/09/21 04:40 Ferritin 660.2 ng/mL (10.0-200.0) H 04/06/21 23:20 Total Bilirubin 1.20 mg/dL (0.1-1.2) 04/06/21 17:29 AST 70 units/L (5-40) H 04/06/21 17:29 ALT 46 units/L (7-56) 04/06/21 17: Alkaline Phosphatase 94 units/L (35-129) 04/06/21 17:29 Lactate Dehydrogenase 322 units/L (91-180) H 04/06/21 23:20 Troponin T < 0.010 ng/mL (0.00-0.029) 04/06/21 21: C-Reactive Protein 22.30 mg/dL (0.00-1.30) H 04/06/21 23:20 NT-Pro-B Natriuret Pep 1182 pg/mL (0-900) H 04/06/21 21:27 Total Protein 6.9 g/dL (6.3-8.2) 04/06/21 17:29 Albumin 3.7 g/dL (3.9-5) L 04/06/21 17:29 Albumin/Globulin Ratio 1.2 % 04/06/21 17:29 Procalcitonin 8.61 ng/mL (<0.15) 04/06/21 23:20 Urine Color Yellow (Yellow) 04/06/21 21:37 Urine Turbidity Slightly-cloudy (Clear) 04/06/21 21:37 Urine pH 5.0 (5.0-7.0) 04/06/21 21:37 Ur Specific [place] 1.014 (1.003-1.030) 04/06/21 21:37 Urine Protein 30 mg/dl mg/dL (Negative) 04/06/21 21:37 Urine Glucose (UA) Neg mg/dL (Negative) 04/06/21 21:37 Urine Ketones Neg mg/dL (Negative) 04/06/21 21:37 Urine Blood Sm (Negative) 04/06/21 21:37 Urine Nitrite Neg (Negative) 04/06/21 21:37 Urine Bilirubin Neg (Negative) 04/06/21 21:37 Urine Urobilinogen < 2.0 mg/dL (<2.0) 04/06/21 21:37 Ur Leukocyte Esterase Tr (Negative) 04/06/21 21:37 Urine WBC (Auto) 18.0 /HPF (0.0-6.0) H 04/06/21 21:37 Urine RBC (Auto) 2.0 /HPF (0.0-6.0) 04/06/21 21:37 U Epithel Cells (Auto) 2.0 /HPF (0-13.0) 04/06/21 21:37 Urine Mucus Few /HPF 04/06/21 21:37 Vancomycin Trough 7.2 ug/mL (5.0-20.0) 04/09/21 11:14 Rheumatoid Factor 15 IU/ml (0-13) H 04/09/21 10:00 Double Strand DNA Ab <1 IU/mL (<=4) 04/09/21 10:00 Coronavirus (PCR) Negative (Negative) 04/07/21 09:05 HIV 1&2 Antibody Rapid Non react (Non React) 04/09/21 08:06 HIV P24 Antigen Non react (Non React) 04/09/21 08:06 Microbiology: Microbiology 04/09/21 18:08 Peripheral/Venous Blood Culture - Preliminary NO GROWTH AFTER 48 HOURS 04/09/21 18:15 Peripheral/Venous Blood Culture - Preliminary NO GROWTH AFTER 48 HOURS Contreras/IV: Voiding Method External Female Catheter Active Medications - Current Medications Current Medications: Generic Name Dose Route Start Last Admin Trade Name Freq PRN Reason Stop Dose Admin Acetaminophen 650 mg 04/06/21 23:24 04/09/21 11:06 Acetaminophen 325 Mg Tab PO 650 mg Q6H PRN Administration Pain MILD(1-3)/Fever >100.5/VILLANUEVA Colchicine 0.6 mg 04/09/21 10:00 04/11/21 21:42 Colchicine 0.6 Mg Tab PO 0.6 mg BID MICHELLE Administration Famotidine 20 mg 04/07/21 22:00 04/11/21 21:42 Famotidine 20 Mg Tab PO 20 mg BID MICHELLE Administration Sodium Chloride 1,000 mls @ 75 mls/hr 04/08/21 12:07 04/11/21 08:52 Nacl 0.9% 1000 Ml IV 75 mls/hr DIRECT MICHELLE Administration Penicillin G Potassium 4 mil. 50 mls @ 50 mls/hr 04/09/21 18:00 04/12/21 07:00 units/ Sodium Chloride IV Not Given Q4H MICHELLE Clindamycin Phosphate 600 mg/ 600 mg in 54 mls @ 100 mls/hr 04/12/21 01:00 04/12/21 01:31 Dextrose IV 04/12/21 09:30 100 mls/hr Q8H MICHELLE Administration Protocol Magnesium Hydroxide 30 ml 04/06/21 23:24 Magnesium Hydroxide (Mom) Oral Liqd Udc PO Q4H PRN Constipation Ondansetron HCl 4 mg 04/06/21 23:24 Ondansetron 4 Mg/2 Ml Inj IV Q8H PRN Nausea And Vomiting Prednisone 20 mg 04/09/21 10:00 04/11/21 10:00 Prednisone 20 Mg Tab PO Not Given QDAY MICHELLE Senna 8.6 mg 04/07/21 22:00 04/11/21 21:42 Sennosides 8.6 Mg Tab PO 8.6 mg QHS MICHELLE Administration Sodium Chloride 10 ml 04/07/21 10:00 04/11/21 21:42 Sodium Chloride 0.9% 10 Ml Flush Syringe IV 10 ml BID MICHELLE Administration Sodium Chloride 10 ml 04/06/21 23:22 Sodium Chloride 0.9% 10 Ml Flush Syringe IV PRN PRN LINE FLUSH Tramadol HCl 50 mg 04/07/21 15:41 04/10/21 17:09 Tramadol 50 Mg Tab PO 50 mg Q6H PRN Administration Pain, Moderate (4-6) Nutrition/Malnutrition Assess - Dietary Evaluation Nutrition/Malnutrition Findings: Nutrition Notes Start: 04/07/21 11:35 Freq: Status: Active Protocol: Document 04/11/21 12:57 MELANI (Rec: 04/11/21 13:04 MELANI [id number]) Nutrition Notes Initial or Follow up Reassessment Other Pertinent Diagnosis Septic shock, Met encephalopathy, Pneumonia, Thromocytopenia, UTI. Current Diet Regular Diet (since D 04/07). Labs/Tests 11/28: Crea 0.3. Pertinent Medications 04/11: Nutritionally unremarkable. Height 5 ft 7 in Weight 78.6 kg [place] Body Weight (kg) 61.36 BMI 27.1 Weight change and time frame 5.32 Kg body weight loss within the last 4 days reported. Weight Status Overweight Subjective/Other Information RD consult for routine F/U on PO intake of meals. 5.32 Kg body weight loss within the last 4 days reported. No %PO intake of meals reported at the time. Dietary supplements Ensure Enlive BID ordered. Percent of energy/protein needs met: Prescribed Regular Diet provides for energy/protein needs (2,289 Kcal/89 g) during LOS; additionally, Dietary Supplements will compensate for possible Poor PO intake of meals with 700 Kcal and 40 g of protein. Burn Absent Trauma Absent GI Symptoms None Food Allergy No Skin Integrity/Comment Clear, warm, dry. #1 Nutrition Diagnosis Predicted suboptimal energy intake Etiology Ongoing concomitant critical conditions As Evidenced by Signs and Symptoms Abnormal chemistry lab values, loss of 6.77% of body weight in 4 days. No report on %PO intake of meals at the time. Is patient on ventilator? No Is Patient Ambulatory and/or Out of Bed Yes REE-([facility]-ambulatory/OOB) [ 1811.719 [id number]] Kcal/Kg value to use for calculation 35 Approximate Energy Requirements Using 2751 kcal/Kg Calculation Used for Recommendations Kcal/kg Additional Notes Protein: 1.2-1.5 g/Kg; 73-92 g /day (from IBW + critical care ). Fluids: 1 ml/Kcal, or as per MD. Nutrition Intervention Change Diet Order: Continue Regular Diet. Add Supplement/Snack (indicate name/kcal 8 fl oz Ensure Enlive; BID /protein ) Provides kCal: 700 Provides Protein (gm) 40 Goal #1 Maintain body weight within +/ -3% of admission BWt during LOS. Goal #2 Reach and maintain acceptable chemistry lab values during LOS. Follow-Up By: 04/19/21 Additional Comments Continue monitoring food tolerance, %PO intake of meals , Hydration, and BM.
[2021-04-12] MEDS: FAMOTIDINE 20 MG TAB PO SCH ×2 (09:42→22:35)
[2021-04-12] MEDS: predniSONE 20 MG TAB PO SCH (09:42)
[2021-04-12] MEDS: SODIUM CHLORIDE 0.9% 1000 ML 1,000 ML IV SCH (09:43)
[2021-04-12] MEDS ORDERED: IBUPROFEN 600 MG TAB PO PRN (10:30)
[2021-04-12] MEDS: COLCHICINE 0.6 MG TAB PO SCH ×2 (12:21→22:35)
--- NOTE | 2021-04-12 13:26 | Progress Note ---
Assessment and Plan Cultures: SARS-CoV-2 PCR negative. Blood culture 04/06/2021 with Group A Strep 4 out of 4 bottles. Blood culture 04/09/2021 no growth so far Urine culture 04/06/2021 no growth. Assessment: 61-year-old female with no past medical history admitted on 04/06/2021 secondary to few days of weakness, poor appetite and a fall at home complaining of right leg pain: #Severe sepsis: present on admission with fever, neutropenia, elevated lactate; source GPC bacteremia. CRP 22. Procalcitonin 8.6. #Group A Strep bacteremia: Of unclear etiology. ? Bilateral foot cellulitis. Transthoracic echo without endocarditis. #Joint pains: knee and ankle. Septic given bacteremia vs reactive or gout #Bilateral pneumonia: CTA without PE, reticular airspace disease in the bases, mediastinal lymphadenopathies. SARS neg. ?lung emboli. #UTI: Urinalysis with 18 WBCs and trace leukocyte esterase. #Elevated LFTs: due to sepsis #Neutropenia/thrombocytopenia: due to sepsis vs malignancy. #Cervical mass: ? cancer Recommendations: - Follow-up repeat blood cultures, negative so far. - Continue penicillin G IV and clindamycin. Stop clindamycin after 9 doses. - Monitor fever - When blood cultures engative x48 hours could consider midline and penicillin as outpatient to complete 2 weeks antibiotics - Pending ortho evaluation for arthropathies - Leukocytosis today may be due to steroids. Will follow. Jewels Weber MD [facility] O: [phone] F: [phone] Subjective Date of service: 04/12/21 Principal diagnosis: Septic shock Interval history: Afebrile, with ongoing right ankle and left knee pain. Objective - Exam Narrative Exam: General appearance: Alert in NAD pleasant Eyes: anicteric sclerae, moist conjunctivae; no lid-lag; PERRLA HENT: Normocephalic, Atraumatic; normal external ears, nares open, oropharynx clear Neck: supple, tracheal midline, no JVD Lungs: CTA CV: RRR no murmur Abdomen: Soft, RUQ tenderness Extremities: Right ankle edema and tenderness, left knee edema and tenderness Skin: No rash. Psych: no agitated Neuro: alert and oriented x 3. Moving all extermities - Constitutional Vitals: Vital Signs Temp Pulse Resp BP Pulse Ox 98.8 F 99 H 20 141/88 97 04/12/21 08:02 04/12/21 08:02 04/12/21 08:02 04/12/21 08:02 04/12/21 10:00 Temperature -Last 24 Hours Temperature 98.8 F Temperature 98.0 F Temperature 98.1 F Temperature 98.5 F - Labs CBC & Chem 7: 04/11/21 05:02 04/10/21 04:00
[2021-04-12 14:12] LABS: Hematocrit 33.7 % (30.3-42.9); Hemoglobin 10.7 gm/dl (10.1-14.3); Mean Corpuscular HGB Conc 32 % (30-34); Mean Corpuscular Volume 87 fl (79-97); Platelet Count 193 K/mm3 (140-440); Red Blood Count 3.89 M/mm3 (3.65-5.03)
[2021-04-12 14:16] LABS: BUN/Creatinine Ratio 14; Blood Urea Nitrogen 7 mg/dL (7-17); Calcium 8.7 mg/dL (8.4-10.2); Hemolysis Index 10
[2021-04-12 14:40] LABS: Eosinophils # (Auto) 0.1 K/mm3 (0.0-0.4); Eosinophils % (Auto) 0.5 % (0.0-4.3); Monocytes # (Auto) 1.1 K/mm3 (0.0-0.8); Monocytes % (Auto) 5.8 % (0.0-7.3)
--- NOTE | 2021-04-12 16:45 | Consultation ---
History of Present Illness - HPI Consult date: 04/12/21 Consult reason: joint pain History of present illness: 61 y/o female with c/o left knee and right ankle pain after fall at home several wks ago, eventually presenting to our ED where symptoms c/w sepsis... Past History Past Medical History: No medical history Past Surgical History: No surgical history Social history: no significant social history, Family history: no significant family history Medications and Allergies Allergies Allergy/AdvReac Type Severity Reaction Status Date / Time No Known Allergies Allergy Unverified 04/06/21 17:27 Active Meds: Active Medications Acetaminophen (Acetaminophen 325 Mg Tab) 650 mg PO Q6H PRN PRN Reason: Fever >100.5/VILLANUEVA Last Admin: 04/09/21 11:06 Dose: 650 mg Documented by: Colchicine (Colchicine 0.6 Mg Tab) 0.6 mg PO BID [facility] Last Admin: 04/12/21 12:21 Dose: 0.6 mg Documented by: Famotidine (Famotidine 20 Mg Tab) 20 mg PO BID [facility] Last Admin: 04/12/21 09:42 Dose: 20 mg Documented by: Sodium Chloride (Nacl 0.9% 1000 Ml) 1,000 mls @ 75 mls/hr IV DIRECT [facility] Last Admin: 04/12/21 09:43 Dose: 75 mls/hr Documented by: Penicillin G Potassium 4 mil. (units/ Sodium Chloride) 50 mls @ 50 mls/hr IV Q4H [facility] Last Admin: 04/12/21 14:40 Dose: 50 mls/hr Documented by: Ibuprofen (Ibuprofen 600 Mg Tab) 600 mg PO Q8H PRN PRN Reason: Pain, Mild (1-3) Last Admin: 04/12/21 10:50 Dose: 600 mg Documented by: Magnesium Hydroxide (Magnesium Hydroxide (Mom) Oral Liqd Udc) 30 ml PO Q4H PRN PRN Reason: Constipation Ondansetron HCl (Ondansetron 4 Mg/2 Ml Inj) 4 mg IV Q8H PRN PRN Reason: Nausea And Vomiting Prednisone (Prednisone 20 Mg Tab) 20 mg PO QDAY [facility] Last Admin: 04/12/21 09:42 Dose: 20 mg Documented by: Senna (Sennosides 8.6 Mg Tab) 8.6 mg PO QHS [facility] Last Admin: 04/11/21 21:42 Dose: 8.6 mg Documented by: Sodium Chloride (Sodium Chloride 0.9% 10 Ml Flush Syringe) 10 ml IV BID MICHELLE Last Admin: 04/12/21 09:42 Dose: 10 ml Documented by: Sodium Chloride (Sodium Chloride 0.9% 10 Ml Flush Syringe) 10 ml IV PRN PRN PRN Reason: LINE FLUSH Tramadol HCl (Tramadol 50 Mg Tab) 50 mg PO Q6H PRN PRN Reason: Pain, Moderate (4-6) Last Admin: 04/10/21 17:09 Dose: 50 mg Documented by: Physical Examination - Physical exam Narrative exam: left knee - mild effusion, good passive ROM, no redness/erythema noted right ankle - moderate swelling, no increase warmth palpated, good passive ROM Assessment and Plan left knee and right ankle pain, suspect inflammatory eitology, doubt infectious at this point recommend- PT for ROM and gait training, WBAT BLE's
[2021-04-12 17:21] LABS: Anisocytosis Few; Band Neutrophils # (Manual) 0.4 K/mm3; Hypochromasia 2+; Myelocytes # (Manual) 0.2 K/mm3; Platelet Estimate Consistent w Auto; Total Cells Counted 100
--- NOTE | 2021-04-12 21:04 | Progress Note ---
Assessment and Plan 61-year-old female with no significant past medical history presenting to the emergency room today with right leg pain and progressive loss of appetite over the past few days. Patient states that she fell sometime yesterday hurt her leg. She also indicates that she struck her head but denies any headache and denies any dizziness. According to family members who were by the bedside, patient was said to appear little confused today. Patient denies any fever or chills, no chest pain or shortness of breath, no nausea or vomiting, no diarrhea and no abdominal pain. She denies any hematuria or dysuria. Denies any bright red blood per rectum. Denies any melena. Patient denies any sick contacts and no recent travel. Denies any weight loss, denies any night sweats. She denies any contact with anyone with COVID-19. She however admits that she has not had the COVID-19 vaccination. Upon arrival in the emergency room , she appeared tachycardic and hypotensive. She received boluses of IV fluid. Work-up reveals lactic acid of 4.0, BNP of 1182, potassium level of 3.2, elevated D-dimer of greater than 10,000. WBC count of 3.0, and platelet count of 91. Urinalysis shows trace of leukocyte esterase, 18 WBC with a slightly cloudy urine. Chest x-ray done 04/06/21 reported No acute findings. CT angiogram shows no evidence of pulmonary embolism There is mild reticular/airspace opacities within the lung bases, may reflect atelectasis or developing pneumonia. Multiple mildly enlarged mediastinal lymph nodes are presumably reactive. CT of the abdomen and pelvis reveals: 1. Abnormal masslike thickening of the cervix and vagina. Malignancy is the diagnosis of exclusion. Recommend gynecology consultation. 2. Mildly enlarged left inguinal lymph node is nonspecific. Recommend follow- up. Patient resting on room air. O2 saturation 97%. denies chest pain, shortness of breath or cough. Complaining leg pains. Patient afebrile. Has leukocytosis. Blood pressure 141/88. Pulse 99. respirations 20. Patient is on Pencillin G, Clindamycin, Prednisone Famotidine and tramadol - Patient Problems (1) Hypokalemia Current Visit: Yes Status: Acute Plan to address problem: Corrected, Patients to day K+ 4.2 (2) Multifocal pneumonia Current Visit: Yes Status: Acute Plan to address problem: Patient is on Pencillin G. and Clindamycin. (3) Septic shock Current Visit: Yes Status: Acute Plan to address problem: Blood pressure improved with fluids. Patient is on Pencillin G. and Clindamycin. (4) Suspected COVID-19 virus infection Current Visit: Yes Status: Acute Plan to address problem: [place] virus PCR negative. (5) Thrombocytopenia Current Visit: Yes Status: Acute Plan to address problem: Improved. To days platelet count is 193,000. Subjective Date of service: 04/12/21 Principal diagnosis: Septic shock Interval history: 61-year-old female with no significant past medical history presenting to the emergency room today with right leg pain and progressive loss of appetite over the past few days. Patient states that she fell sometime yesterday hurt her leg. She also indicates that she struck her head but denies any headache and denies any dizziness. According to family members who were by the bedside, patient was said to appear little confused today. Patient denies any fever or chills, no chest pain or shortness of breath, no nausea or vomiting, no diarrhea and no abdominal pain. She denies any hematuria or dysuria. Denies any bright red blood per rectum. Denies any melena. Patient denies any sick contacts and no recent travel. Denies any weight loss, denies any night sweats. She denies any contact with anyone with COVID-19. She however admits that she has not had the COVID-19 vaccination. Upon arrival in the emergency room , she appeared tachycardic and hypotensive. She received boluses of IV fluid. Work-up reveals lactic acid of 4.0, BNP of 1182, potassium level of 3.2, elevated D-dimer of greater than 10,000. WBC count of 3.0, and platelet count of 91. Urinalysis shows trace of leukocyte esterase, 18 WBC with a slightly cloudy urine. Chest x-ray done 04/06/21 reported No acute findings. CT angiogram shows no evidence of pulmonary embolism There is mild reticular/airspace opacities within the lung bases, may reflect atelectasis or developing pneumonia. Multiple mildly enlarged mediastinal lymph nodes are presumably reactive. CT of the abdomen and pelvis reveals: 1. Abnormal masslike thickening of the cervix and vagina. Malignancy is the diagnosis of exclusion. Recommend gynecology consultation. 2. Mildly enlarged left inguinal lymph node is nonspecific. Recommend follow-u p. Patient resting on room air. O2 saturation 97%. denies chest pain, shortness of breath or cough. Complaining leg pains. Patient afebrile. Has leukocytosis. Blood pressure 141/88. Pulse 99. respirations 20. Patient is on Pencillin G, Clindamycin,Prednisone Famotidine and tramadol. Objective Vital Signs - 12hr 04/12/21 04/12/21 04/12/21 10:00 15:30 19:21 Temperature 98.1 F 98.2 F Pulse Rate 90 93 H Respiratory 20 14 Rate Blood Pressure 142/87 131/83 O2 Sat by Pulse 97 96 99 Oximetry Constitutional: no acute distress, alert Eyes: non-icteric ENT: oropharynx moist Neck: supple, no lymphadenopathy Effort: normal Ascultation: Bilateral: rhonchi (Occasional) Cardiovascular: regular rate and rhythm, other (S1,S2) Gastrointestinal: normoactive bowel sounds, soft, non-tender, non-distended Integumentary: normal Extremities: edema, other (Complaining leg pain.) Neurologic: normal mental status, non-focal exam, pupils equal and round Psychiatric: mood appropriate, affect normal CBC and BMP: 04/12/21 13:42 04/12/21 13:42 ABG, PT/INR, D-dimer: PT/INR, D-dimer PT 13.6 Sec. (12.2-14.9) 04/09/21 08:06 INR 0.94 (0.87-1.13) 04/09/21 08:06 D-Dimer > 83446 ng/mlDDU (0-234) H 04/06/21 17:29 Abnormal lab findings: Abnormal Labs 04/06/21 04/06/21 04/06/21 17:29 17:29 17:29 WBC 3.0 L RBC Hgb Plt Count 91 L [place] % (Auto) [place] # (Auto) Seg Neutrophils % Seg Neuts % (Manual) 96.0 H Lymphocytes % (Manual) 4.0 L Nucleated RBC % Seg Neutrophils # Seg Neutrophils # Man Lymphocytes # (Manual) 0.1 L Monocytes # (Manual) Fibrinogen D-Dimer > 51833 H Sodium 131 L Potassium 3.2 L Chloride 96.0 L Carbon Dioxide 20 L BUN 22 H Creatinine Glucose 129 H Lactic Acid Uric Acid Calcium Phosphorus Ferritin AST 70 H Lactate Dehydrogenase C-Reactive Protein NT-Pro-B Natriuret Pep Albumin 3.7 L Urine WBC (Auto) Rheumatoid Factor 04/06/21 04/06/21 04/06/21 17:29 21:27 21:27 WBC RBC Hgb Plt Count [place] % (Auto) [place] # (Auto) Seg Neutrophils % Seg Neuts % (Manual) Lymphocytes % (Manual) Nucleated RBC % Seg Neutrophils # Seg Neutrophils # Man Lymphocytes # (Manual) Monocytes # (Manual) Fibrinogen D-Dimer Sodium Potassium Chloride Carbon Dioxide BUN Creatinine Glucose Lactic Acid 4.00 H* 3.60 H* Uric Acid Calcium Phosphorus Ferritin AST Lactate Dehydrogenase C-Reactive Protein NT-Pro-B Natriuret Pep 1182 H Albumin Urine WBC (Auto) Rheumatoid Factor 04/06/21 04/06/21 04/06/21 21:37 23:20 23:20 WBC RBC Hgb Plt Count [place] % (Auto) [place] # (Auto) Seg Neutrophils % Seg Neuts % (Manual) Lymphocytes % (Manual) Nucleated RBC % Seg Neutrophils # Seg Neutrophils # Man Lymphocytes # (Manual) Monocytes # (Manual) Fibrinogen D-Dimer Sodium Potassium Chloride Carbon Dioxide BUN Creatinine Glucose Lactic Acid 4.40 H* Uric Acid Calcium Phosphorus Ferritin AST Lactate Dehydrogenase 322 H C-Reactive Protein 22.30 H NT-Pro-B Natriuret Pep Albumin Urine WBC (Auto) 18.0 H Rheumatoid Factor 04/06/21 04/07/21 04/07/21 23:20 04:31 04:31 WBC RBC Hgb Plt Count 61 L [place] % (Auto) [place] # (Auto) Seg Neutrophils % Seg Neuts % (Manual) Lymphocytes % (Manual) 1.0 L Nucleated RBC % Seg Neutrophils # Seg Neutrophils # Man Lymphocytes # (Manual) 0.0 L Monocytes # (Manual) Fibrinogen D-Dimer Sodium Potassium 3.2 L Chloride 108.4 H Carbon Dioxide 18 L BUN Creatinine 0.5 L D Glucose 120 H Lactic Acid Uric Acid Calcium 8.1 L D Phosphorus Ferritin 660.2 H AST Lactate Dehydrogenase C-Reactive Protein NT-Pro-B Natriuret Pep Albumin Urine WBC (Auto) Rheumatoid Factor 04/07/21 04/08/21 04/08/21 04:31 05:58 05:58 WBC RBC Hgb Plt Count 57 L [place] % (Auto) [place] # (Auto) Seg Neutrophils % Seg Neuts % (Manual) Lymphocytes % (Manual) Nucleated RBC % Seg Neutrophils # Seg Neutrophils # Man Lymphocytes # (Manual) Monocytes # (Manual) Fibrinogen D-Dimer Sodium 134 L Potassium 3.5 L Chloride Carbon Dioxide 18 L BUN Creatinine 0.5 L Glucose 112 H Lactic Acid 2.40 H* Uric Acid Calcium Phosphorus 1.70 L Ferritin AST Lactate Dehydrogenase C-Reactive Protein NT-Pro-B Natriuret Pep Albumin Urine WBC (Auto) Rheumatoid Factor 04/09/21 04/09/21 04/09/21 04:40 04:40 08:06 WBC RBC Hgb Plt Count 46 L [place] % (Auto) [place] # (Auto) Seg Neutrophils % Seg Neuts % (Manual) Lymphocytes % (Manual) Nucleated RBC % Seg Neutrophils # Seg Neutrophils # Man Lymphocytes # (Manual) Monocytes # (Manual) Fibrinogen 591 H D-Dimer Sodium Potassium 2.7 L* D Chloride Carbon Dioxide 20 L BUN Creatinine 0.4 L Glucose Lactic Acid Uric Acid Calcium Phosphorus 1.90 L Ferritin AST Lactate Dehydrogenase C-Reactive Protein NT-Pro-B Natriuret Pep Albumin Urine WBC (Auto) Rheumatoid Factor 04/09/21 04/09/21 04/09/21 08:06 10:00 10:00 WBC RBC Hgb Plt Count 49 L [place] % (Auto) [place] # (Auto) Seg Neutrophils % Seg Neuts % (Manual) 86.0 H Lymphocytes % (Manual) 6.0 L Nucleated RBC % 1.0 H Seg Neutrophils # Seg Neutrophils # Man Lymphocytes # (Manual) 0.4 L Monocytes # (Manual) Fibrinogen D-Dimer Sodium Potassium Chloride Carbon Dioxide BUN Creatinine Glucose Lactic Acid Uric Acid 2.1 L Calcium Phosphorus Ferritin AST Lactate Dehydrogenase C-Reactive Protein NT-Pro-B Natriuret Pep Albumin Urine WBC (Auto) Rheumatoid Factor 15 H 04/10/21 04/10/21 04/10/21 04:00 04:00 05:00 WBC RBC Hgb Plt Count 64 L [place] % (Auto) 11.2 H [place] # (Auto) 1.1 H Seg Neutrophils % 72.5 H Seg Neuts % (Manual) 88.0 H Lymphocytes % (Manual) 5.0 L Nucleated RBC % Seg Neutrophils # Seg Neutrophils # Man 8.4 H Lymphocytes # (Manual) 0.5 L Monocytes # (Manual) Fibrinogen 558 H D-Dimer Sodium Potassium Chloride Carbon Dioxide BUN Creatinine 0.3 L Glucose Lactic Acid Uric Acid Calcium Phosphorus Ferritin AST Lactate Dehydrogenase C-Reactive Protein NT-Pro-B Natriuret Pep Albumin Urine WBC (Auto) Rheumatoid Factor 04/11/21 04/12/21 04/12/21 05:02 13:42 13:42 WBC 14.2 H 19.2 H RBC 3.53 L Hgb 9.8 L Plt Count 109 L [place] % (Auto) [place] # (Auto) 1.1 H Seg Neutrophils % 84.2 H Seg Neuts % (Manual) 81.0 H 89.0 H Lymphocytes % (Manual) 8.0 L 4.0 L Nucleated RBC % 2.0 H Seg Neutrophils # 16.0 H Seg Neutrophils # Man 11.5 H 17.1 H Lymphocytes # (Manual) 1.1 L 0.8 L Monocytes # (Manual) 0.9 H Fibrinogen D-Dimer Sodium 135 L Potassium Chloride Carbon Dioxide BUN Creatinine 0.5 L D Glucose 120 H Lactic Acid Uric Acid Calcium Phosphorus Ferritin AST Lactate Dehydrogenase C-Reactive Protein NT-Pro-B Natriuret Pep Albumin Urine WBC (Auto) Rheumatoid Factor Allied health notes reviewed: nursing
[2021-04-12] MEDS: SENNOSIDES 8.6 MG TAB PO SCH (22:36)
[2021-04-13 05:09] LABS: Hematocrit 31.3 % (30.3-42.9); Hemoglobin 10.1 gm/dl (10.1-14.3); Mean Corpuscular HGB Conc 32 % (30-34); Mean Corpuscular Volume 87 fl (79-97); Platelet Count 201 K/mm3 (140-440); Red Blood Count 3.61 M/mm3 (3.65-5.03); Red Cell Distribution Width 14.3 % (13.2-15.2)
[2021-04-13 05:31] LABS: Blood Urea Nitrogen 7 mg/dL (7-17); Calcium 8.8 mg/dL (8.4-10.2); Hemolysis Index 22
[2021-04-13 05:33] LABS: BUN/Creatinine Ratio 23
[2021-04-13 05:56] LABS: Promyelocytes # (Manual) 0.1 K/mm3; Total Cells Counted 100
[2021-04-13 05:58] LABS: Hypochromasia 2+; Ovalocytes Few; Platelet Estimate Consistent w Auto; Target Cells 1+; Toxic Granulation 1+
[2021-04-13 06:20] LABS: ANA Screen, IFA Negative (Negative)
[2021-04-13 06:52] LABS: Erythrocyte Sedimentation Rate 1 mm/Hr (0-20)
--- NOTE | 2021-04-13 09:22 | Hem/Onc Progress Note ---
Subjective Date of service: 04/13/21 Interval history: HEME progress note Dx: Thrombocytopenia 61[facility] days R leg pain presenting to the emergency room with right leg pain post recent fall and injured head, appearing confused as per family noted to have low platelet count and low WBC on admission-->improved over a few days, with left shift, bands --- Chest x-ray, x-ray of the tibia and fibula of the right lower extremity, right femur were unremarkable CT angiogram shows no evidence of pulmonary embolism There is mild reticular/airspace opacities within the lung bases, may reflect atelectasis or developing pneumonia Multiple mildly enlarged mediastinal lymph nodes are presumably reactive CT of the abdomen and pelvis reveals: 1. Abnormal mass like thickening of the cervix and vagina. Malignancy is the diagnosis of exclusion. Recommend gynecology consultation. 2. Mildly enlarged left inguinal lymph node is nonspecific. Recommend follow- up. --- DATA REVIEWED BELOW Plts 201 IMP: Thrombocytopenia was possibly due to infection she may have underlying chronic ITP Thrombocytopenia now improved doubt heme malignancy REC/PLAN: Daily CBC Appreciate [employer] recommendations--outpatient follow-up for pap smear and cervical biopsy If malignant, rec outpatient [employer] ONC follow-up, as there is no service at [facility] Laboratory Last Values WBC 14.5 K/mm3 (4.5-11.0) H 04/13/21 04:41 Hgb 10.1 gm/dl (10.1-14.3) 04/13/21 04:41 Hct 31.3 % (30.3-42.9) 04/13/21 04:41 Plt Count 201 K/mm3 (140-440) 04/13/21 04:41 PT 13.6 Sec. (12.2-14.9) 04/09/21 08:06 INR 0.94 (0.87-1.13) 04/09/21 08:06 APTT 31.9 Sec. (24.2-36.6) 04/09/21 08:06 Fibrinogen 558 mg/dl (211-480) H 04/10/21 05:00 D-Dimer > 28308 ng/mlDDU (0-234) H 04/06/21 17:29 AST 70 units/L (5-40) H 04/06/21 17:29 ALT 46 units/L (7-56) 04/06/21 17:29 Alkaline Phosphatase 94 units/L (35-129) 04/06/21 17:29 Lactate Dehydrogenase 322 units/L (91-180) H 04/06/21 23:20 Troponin T < 0.010 ng/mL (0.00-0.029) 04/06/21 21:27 C-Reactive Protein 7.40 mg/dL (0.00-1.30) H 04/13/21 04:41 NT-Pro-B Natriuret Pep 1182 pg/mL (0-900) H 04/06/21 21:27 Total Protein 6.9 g/dL (6.3-8.2) 04/06/21 17:29 Albumin 3.7 g/dL (3.9-5) L 04/06/21 17:29 Albumin/Globulin Ratio 1.2 % 04/06/21 17:29 Procalcitonin 8.61 ng/mL (<0.15) 04/06/21 23:20 Urine Color Yellow (Yellow) 04/06/21 21:37 Urine Turbidity Slightly-cloudy (Clear) 04/06/21 21:37 Urine pH 5.0 (5.0-7.0) 04/06/21 21:37 Ur Specific [place] 1.014 (1.003-1.030) 04/06/21 21:37 Urine Protein 30 mg/dl mg/dL (Negative) 04/06/21 21:37 Urine Glucose (UA) Neg mg/dL (Negative) 04/06/21 21:37 Urine Ketones Neg mg/dL (Negative) 04/06/21 21:37 Urine Blood Sm (Negative) 04/06/21 21:37 Urine Nitrite Neg (Negative) 04/06/21 21:37 Urine Bilirubin Neg (Negative) 04/06/21 21:37 Urine Urobilinogen < 2.0 mg/dL (<2.0) 04/06/21 21:37 Ur Leukocyte Esterase Tr (Negative) 04/06/21 21:37 Urine WBC (Auto) 18.0 /HPF (0.0-6.0) H 04/06/21 21:37 Urine RBC (Auto) 2.0 /HPF (0.0-6.0) 04/06/21 21:37 U Epithel Cells (Auto) 2.0 /HPF (0-13.0) 04/06/21 21:37 Urine Mucus Few /HPF 04/06/21 21:37 Vancomycin Trough 7.2 ug/mL (5.0-20.0) 04/09/21 11:14 Rheumatoid Factor 15 IU/ml (0-13) H 04/09/21 10:00 ROGELIO Screen Negative (Negative) 04/09/21 10:00 Double Strand DNA Ab <1 IU/mL (<=4) 04/09/21 10:00 Coronavirus (PCR) Negative (Negative) 04/07/21 09:05 HIV 1&2 Antibody Rapid Non react (Non React) 04/09/21 08:06 HIV P24 Antigen Non react (Non React) 04/09/21 08:06 Objective - Constitutional Vitals: Last Vital Signs Temp 98.3 F 04/13/21 03:52 Pulse 84 04/13/21 03:52 Resp 16 04/13/21 03:52 BP 142/77 04/13/21 03:52 Pulse Ox 98 04/13/21 03:52 - Labs Lab Results: Laboratory Results - last 24 hr 04/09/21 04/12/21 04/12/21 10:00 13:42 13:42 WBC 19.2 H RBC 3.89 Hgb 10.7 Hct 33.7 MCV 87 MCH 28 MCHC 32 RDW 14.0 Plt Count 193 [place] % (Auto) 5.8 Eos % (Auto) 0.5 [place] # (Auto) 1.1 H Eos # (Auto) 0.1 Baso # (Auto) 0.0 Add Manual Diff Complete Total Counted 100 Seg Neutrophils % 84.2 H Seg Neuts % (Manual) 89.0 H Band Neutrophils % 2.0 Lymphocytes % (Manual) 4.0 L Reactive Lymphs % (Man) Monocytes % (Manual) 3.0 Eosinophils % (Manual) 1.0 Myelocytes % 1.0 Promyelocytes % Nucleated RBC % 2.0 H Seg Neutrophils # 16.0 H Seg Neutrophils # Man 17.1 H Band Neutrophils # 0.4 Lymphocytes # (Manual) 0.8 L Abs React Lymphs (Man) 0.0 Monocytes # (Manual) 0.6 Eosinophils # (Manual) 0.2 Basophils # (Manual) 0.0 Metamyelocytes # 0.0 Myelocytes # 0.2 Promyelocytes # 0.0 Blast Cells # 0.0 WBC Morphology Not Reportable Hypersegmented Neuts Not Reportable Hyposegmented Neuts Not Reportable Hypogranular Neuts Not Reportable Smudge Cells Not Reportable Toxic Granulation Not Reportable Toxic Vacuolation Not Reportable Dohle Bodies Not Reportable Pelger-Huet Anomaly Not Reportable Rafal Rods Not Reportable Platelet Estimate Consistent w auto Clumped Platelets Not Reportable Plt Clumps, EDTA Not Reportable Large Platelets Not Reportable Giant Platelets Not Reportable Platelet Satelliting Not Reportable Plt Morphology Comment Not Reportable RBC Morphology Not Reportable Dimorphic RBCs Not Reportable Polychromasia Not Reportable Hypochromasia 2+ Poikilocytosis Not Reportable Anisocytosis Few Microcytosis Few Macrocytosis Not Reportable Spherocytes Not Reportable Pappenheimer Bodies Not Reportable Sickle Cells Not Reportable Target Cells Not Reportable Tear Drop Cells Not Reportable Ovalocytes Not Reportable Helmet Cells Not Reportable Hameed-Chataignier Bodies Not Reportable Guin Rings Not Reportable [place] Cells Not Reportable Bite Cells Not Reportable Crenated Cell Not Reportable Elliptocytes Not Reportable Acanthocytes (Spur) Not Reportable Rouleaux Not Reportable Hemoglobin C Crystals Not Reportable Schistocytes Not Reportable Malaria parasites Not Reportable ESR Gaudencio Bodies Not Reportable Hem Pathologist Commnt No Sodium 135 L Potassium 4.2 Chloride 101.9 Carbon Dioxide 23 Anion Gap 14 BUN 7 Creatinine 0.5 L D Estimated GFR > 60 BUN/Creatinine Ratio 14 Glucose 120 H Calcium 8.7 C-Reactive Protein ROGELIO Screen Negative 04/13/21 04/13/21 04:41 04:41 WBC 14.5 H RBC 3.61 L Hgb 10.1 Hct 31.3 MCV 87 MCH 28 MCHC 32 RDW 14.3 Plt Count 201 [place] % (Auto) Eos % (Auto) [place] # (Auto) Eos # (Auto) Baso # (Auto) Add Manual Diff Complete Total Counted 100 Seg Neutrophils % Seg Neuts % (Manual) 80.0 H Band Neutrophils % 7.0 Lymphocytes % (Manual) 10.0 L Reactive Lymphs % (Man) 2.0 Monocytes % (Manual) Eosinophils % (Manual) Myelocytes % Promyelocytes % 1.0 Nucleated RBC % Not Reportable Seg Neutrophils # Seg Neutrophils # Man 11.6 H Band Neutrophils # 1.0 Lymphocytes # (Manual) 1.5 Abs React Lymphs (Man) 0.3 Monocytes # (Manual) 0.0 Eosinophils # (Manual) 0.0 Basophils # (Manual) 0.0 Metamyelocytes # 0.0 Myelocytes # 0.0 Promyelocytes # 0.1 Blast Cells # 0.0 WBC Morphology Not Reportable Hypersegmented Neuts Not Reportable Hyposegmented Neuts Not Reportable Hypogranular Neuts Not Reportable Smudge Cells Not Reportable Toxic Granulation 1+ Toxic Vacuolation Not Reportable Dohle Bodies Not Reportable Pelger-Huet Anomaly Not Reportable Rafal Rods Not Reportable Platelet Estimate Consistent w auto Clumped Platelets Not Reportable Plt Clumps, EDTA Not Reportable Large Platelets Not Reportable Giant Platelets Not Reportable Platelet Satelliting Not Reportable Plt Morphology Comment Not Reportable RBC Morphology Not Reportable Dimorphic RBCs Not Reportable Polychromasia Not Reportable Hypochromasia 2+ Poikilocytosis Not Reportable Anisocytosis Not Reportable Microcytosis Not Reportable Macrocytosis Not Reportable Spherocytes Not Reportable Pappenheimer Bodies Not Reportable Sickle Cells Not Reportable Target Cells 1+ Tear Drop Cells Not Reportable Ovalocytes Few Helmet Cells Not Reportable Hameed-Chataignier Bodies Not Reportable Guin Rings Not Reportable [place] Cells Not Reportable Bite Cells Not Reportable Crenated Cell Not Reportable Elliptocytes Not Reportable Acanthocytes (Spur) Not Reportable Rouleaux Not Reportable Hemoglobin C Crystals Not Reportable Schistocytes Not Reportable Malaria parasites Not Reportable ESR 1 Gaudencio Bodies Not Reportable Hem Pathologist Commnt No Sodium 137 Potassium 4.0 Chloride 103.4 Carbon Dioxide 23 Anion Gap 15 BUN 7 Creatinine 0.3 L Estimated GFR > 60 BUN/Creatinine Ratio 23 Glucose 85 Calcium 8.8 C-Reactive Protein 7.40 H ROGELIO Screen Medications & Allergies - Medications Allergies/Adverse Reactions: Allergies No Known Allergies Allergy (Unverified 04/06/21 17:27) Active Medications: Generic Name Dose Route Start Last Admin Trade Name Freq PRN Reason Stop Dose Admin Acetaminophen 650 mg 04/06/21 23:24 04/09/21 11:06 Acetaminophen 325 Mg Tab PO 650 mg Q6H PRN Administration Fever >100.5/VILLANUEVA Colchicine 0.6 mg 04/09/21 10:00 04/12/21 22:35 Colchicine 0.6 Mg Tab PO 0.6 mg BID MICHELLE Administration Famotidine 20 mg 04/07/21 22:00 04/12/21 22:35 Famotidine 20 Mg Tab PO 20 mg BID MICHELLE Administration Sodium Chloride 1,000 mls @ 75 mls/hr 04/08/21 12:07 04/12/21 09:43 Nacl 0.9% 1000 Ml IV 75 mls/hr DIRECT MICHELLE Administration Penicillin G Potassium 4 mil. 50 mls @ 50 mls/hr 04/09/21 18:00 04/12/21 22:35 units/ Sodium Chloride IV 50 mls/hr Q4H MICHELLE Administration Ibuprofen 600 mg 04/12/21 10:30 04/12/21 10:50 Ibuprofen 600 Mg Tab PO 600 mg Q8H PRN Administration Pain, Mild (1-3) Magnesium Hydroxide 30 ml 04/06/21 23:24 Magnesium Hydroxide (Mom) Oral Liqd Udc PO Q4H PRN Constipation Ondansetron HCl 4 mg 04/06/21 23:24 Ondansetron 4 Mg/2 Ml Inj IV Q8H PRN Nausea And Vomiting Prednisone 20 mg 04/09/21 10:00 04/12/21 09:42 Prednisone 20 Mg Tab PO 20 mg QDAY MICHELLE Administration Senna 8.6 mg 04/07/21 22:00 04/12/21 22:36 Sennosides 8.6 Mg Tab PO 8.6 mg QHS MICHELLE Administration Sodium Chloride 10 ml 04/07/21 10:00 04/12/21 22:36 Sodium Chloride 0.9% 10 Ml Flush Syringe IV 10 ml BID MICHELLE Administration Sodium Chloride 10 ml 04/06/21 23:22 Sodium Chloride 0.9% 10 Ml Flush Syringe IV PRN PRN LINE FLUSH Tramadol HCl 50 mg 04/07/21 15:41 04/10/21 17:09 Tramadol 50 Mg Tab PO 50 mg Q6H PRN Administration Pain, Moderate (4-6)
[2021-04-13] MEDS: predniSONE 20 MG TAB PO SCH (10:05)
[2021-04-13] MEDS: FAMOTIDINE 20 MG TAB PO SCH (10:05)
[2021-04-13] MEDS: COLCHICINE 0.6 MG TAB PO SCH (10:05)
[2021-04-13] MEDS: PENICILLIN G POTASSIUM 4 MIL.UNITS in SODIUM CHLORIDE 0.9% 50 ML IV SCH ×4 (11:40→14:18)
--- NOTE | 2021-04-13 14:57 | Progress Note ---
Assessment and Plan Cultures: SARS-CoV-2 PCR negative. Blood culture 04/06/2021 with Group A Strep 4 out of 4 bottles. Blood culture 04/09/2021 no growth so far Urine culture 04/06/2021 no growth. Assessment: 61-year-old female with no past medical history admitted on 04/06/2021 secondary to few days of weakness, poor appetite and a fall at home complaining of right leg pain: #Severe sepsis: present on admission with fever, neutropenia, elevated lactate; source GPC bacteremia. CRP 22. Procalcitonin 8.6. #Group A Strep bacteremia: Of unclear etiology. ? Bilateral foot cellulitis. Transthoracic echo without endocarditis. #Joint pains: knee and ankle. Likely inflammatory #Bilateral pneumonia: CTA without PE, reticular airspace disease in the bases, mediastinal lymphadenopathies. SARS neg. ?lung emboli. #UTI: Urinalysis with 18 WBCs and trace leukocyte esterase. #Elevated LFTs: due to sepsis #Neutropenia/thrombocytopenia: due to sepsis vs malignancy. #Cervical mass: ? cancer Recommendations: - Follow-up repeat blood cultures, negative so far. - Continue penicillin G IV and clindamycin. Stop clindamycin after 9 doses. - Monitor fever - Patient is unfunded. OK to DC with Augmentin 875/125mg q12h until 04/20/2021 - Leukocytosis mproving now 14.5 Will follow. Jewels Weber MD [facility] O: [phone] F: [phone] Subjective Date of service: 04/13/21 Principal diagnosis: Septic shock Interval history: Afebrile, white count 14.5 today. Cultures remain negative. No acute changes. Objective - Exam Narrative Exam: General appearance: Alert in NAD pleasant Eyes: anicteric sclerae, moist conjunctivae; no lid-lag; PERRLA HENT: Normocephalic, Atraumatic; normal external ears, nares open, oropharynx clear Neck: supple, tracheal midline, no JVD Lungs: CTA CV: RRR no murmur Abdomen: Soft, RUQ tenderness Extremities: Right ankle edema and tenderness, left knee edema and tenderness Skin: No rash. Psych: no agitated Neuro: alert and oriented x 3. Moving all extermities - Constitutional Vitals: Vital Signs Temp Pulse Resp BP Pulse Ox 98.0 F 96 H 20 144/86 98 04/13/21 11:53 04/13/21 11:53 04/13/21 11:53 04/13/21 11:53 04/13/21 11:53 Temperature -Last 24 Hours Temperature 98.0 F Temperature 98.0 F Temperature 98.3 F Temperature 98.0 F Temperature 98.2 F Temperature 98.1 F - Labs CBC & Chem 7: 04/13/21 04:41 04/13/21 04:41 Labs: Abnormal lab results 04/12/21 04/13/21 04/13/21 Range/Units 13:42 04:41 04:41 WBC 14.5 H (4.5-11.0) K/mm3 RBC 3.61 L (3.65-5.03) M/mm3 Seg Neuts % (Manual) 89.0 H 80.0 H (40.0-70.0) % Lymphocytes % (Manual) 4.0 L 10.0 L (13.4-35.0) % Nucleated RBC % 2.0 H (0.0-0.9) % Seg Neutrophils # Man 17.1 H 11.6 H (1.8-7.7) K/mm3 Lymphocytes # (Manual) 0.8 L (1.2-5.4) K/mm3 Creatinine 0.3 L (0.6-1.2) mg/dL C-Reactive Protein 7.40 H (0.00-1.30) mg/dL
--- NOTE | 2021-04-13 15:16 | Discharge Summary ---
Providers - Providers Date of Admission: 04/07/21 01:04 Date of discharge: 04/13/21 Attending physician: ARELIS PINA MD 04/06/21 23:22 Consult to Dietitian/Nutrition [CONS] Routine Physician Instructions: Reason For Exam: Reason for Consult: Diet education Consult to Physician [CONS] Routine Comment: Consulting Provider: FERNANDO MARTINEZ Physician Instructions: Reason For Exam: Pneumonia R/O Covid -19 04/06/21 23:46 Consult to Physician [CONS] Routine Comment: Consulting Provider: PETRA CARCAMO Physician Instructions: Reason For Exam: Cervical mass-R/O Malignancy 04/06/21 23:47 Consult to Physician [CONS] Routine Comment: Consulting Provider: JEANNIE BAE Physician Instructions: Reason For Exam: Leucopenia,Thrombocytopenia 04/07/21 01:34 Consult to Physician [CONS] Routine Comment: Consulting Provider: JANAK ESCAMILLA Physician Instructions: Reason For Exam: SEPTIC SHOCK 04/07/21 08:00 Midline [Consult to PICC Line RN] [CONS] Routine Reason For Exam: levophed gtt Type Line:: Midline 04/09/21 09:36 Physical Therapy Evaluation and Treat [CONS] Routine Comment: Reason For Exam: Difficulty walking 04/11/21 17:42 Consult to Physician [CONS] Routine Comment: Consulting Provider: SANTHOSH HILL Physician Instructions: Reason For Exam: L knee pain t ankle pain,Gout vs septic arthritis 04/12/21 11:42 Midline [Consult to PICC Line RN] [CONS] Routine Reason For Exam: OP abx infusion Type Line:: Midline Primary care physician: [employer] Hospitalization Reason for admission: joint pain Condition: Fair Hospital course: HPI: 61-year-old female with no significant past medical history presenting to the emergency room today with right leg pain and progressive loss of appetite over the past few days. Patient states that she fell sometime yesterday hurt her leg. She also indicates that she struck her head but denies any headache and denies any dizziness. According to family members who were by the bedside, patient was said to appear little confused today.Patient denies any fever or chills, no chest pain or shortness of breath, no nausea or vomiting, no diarrhea and no abdominal pain. She denies any hematuria or dysuria. Denies any bright red blood per rectum. Denies any melena.Patient denies any sick contacts and no recent travel. Denies any weight loss, denies any night sweats. She denies any contact with anyone with COVID-19. She however admits that she has not had the COVID-19 vaccination.Upon arrival in the emergency room today, she appeared tachycardic and hypotensive. She received boluses of IV fluid.Work-up reveals lactic acid of 4.0, BNP of 1182, potassium level of 3.2, elevated D-dimer of greater than 10,000. WBC count of 3.0, and platelet count of 91.Urinalysis shows trace of leukocyte esterase, 18 WBC with a slightly cloudy urine. Patient was admitted to ICU for septic shock and was on pressors and IV antibiotics. Now off pressors. Currently on medical floor. Hospital Course to Date: 04/07/21- Patient is off pressors this am, on room air, alert but still confused. Still tachycardic this am, remains afebrile overnight, leukopenia improved, COVID swab pending. Will continue current IVF and IV Abx, ID consult pending. Worsen thrombocytopenia this am, no s/s of any bleeding, H&H is stable HEME consult pending. SCDs ordered for VTE proph. Electrolytes repleted. Will continue to trend lactic acid, CBC, and BMP. 04/08/21- Patient remains stable, on room air, more awake and alert this am. Remains febrile overnight, blood culture growing 4 out GPC in pairs and chains, continue current IV Abx, ID on consult. 2D echo also ordered to r/o endocarditis. D/W [facility] patient is stable for transfer to the floor. 04/09/2021 Patient transferred to the telemetry floor Patient sitting in the bed and eating Complains of pain in the right ankle and the left knee Potassium is 2.7 04/10/2021 Right ankle and left knee pain better 04/11/2021 Continues to have right ankle pain Continues to have left knee pain Unable to walk because of the pain 04/12/2021: WBc 14.2 yesterday, ID suspects steroid induced. right ankle still remains swollen, warm, tender. radiographic imaging thus far has been nondiagnostic. Could benefit from athrocentesis for further workup but will await orthopedic recommendations. If Bcx negative for 48 hrs, will order midline for OP abx. 04/13/2021: Right ankle and left knee improving. Orthopedic surgery does not believe this is septic arthritis. Instead suspects inflammtory causes. D/w ID re: bcx and abx choice. WIll discharge patient home with 1 week rx of augmentin. Also will send patient home with rx for ibuprofen to be taken as needed for swelling/leg pain. Patient was advised to establish with a primary care doctor as soon as possible. She is also being d/c with DME rolling walker and bedside commode. Referrals were sent to [place] for OP PT...patient will need a primary care doctor before getting rehab services and this was communicated to patient and family. Assessment and Plan #Acute arthritis Uric acid levels are low Rheumatoid factor positive dsDNA and CCP are pending Orthopedic consult requested Possible septic arthritis Chest x-ray, x-ray of the tibia and fibula of the right lower extremity, right femur were unremarkable. #Acute Metabolic Encephalopathy Improved Afebrile Alert and oriented #Septic Shock Continue IV antibiotics Off pressors CT angiogram shows no evidence of pulmonary embolism There is mild reticular/airspace opacities within the lung bases, may reflect atelectasis or developing pneumonia. Multiple mildly enlarged mediastinal lymph nodes are presumably reactive. #Hypotension- resolved #Hypokalemia Supplemented #Hypophosphatemia Supplemented #Cervical Mass [employer] DES[employer]ER consultation CT of the abdomen and pelvis reveals: 1. Abnormal masslike thickening of the cervix and vagina. Malignancy is the diagnosis of exclusion. Recommend gynecology consultation. 2. Mildly enlarged left inguinal lymph node is nonspecific. Recommend follow- up. #Thrombocytopenia Persistent #Leukopenia Improving #Multifocal pneumonia Continue IV antibiotics #Urinary Tract Infection (UTI) Continue IV antibiotics #COVID PUI Negative #Lactic Acidosis Improved DVT prophylaxis On SCDs and GI prophylaxis Discharge planning issues Physical therapy and OT Patient may be discharged if septic arthritis is ruled out Disposition: 01 HOME / SELF CARE / HOMELESS Final Discharge Diagnosis (Prints w/discharge instructions): Acute arthritis Time spent for discharge: 35 Core Measure Documentation - Palliative Care Palliative Care/ Comfort Measures: Not Applicable - Core Measures Any of the following diagnoses?: none Exam - Physical Exam Narrative exam: General appearance: Alert in NAD pleasant Eyes: anicteric sclerae, moist conjunctivae; no lid-lag; PERRLA HENT: Normocephalic, Atraumatic; normal external ears, nares open, oropharynx clear Neck: supple, tracheal midline, no JVD Lungs: CTA CV: RRR no murmur Abdomen: Soft, RUQ tenderness Extremities: Right ankle edema, warm, and tender improved.. left knee edema and tenderness (less painful today) Skin: No rash. Psych: no agitated Neuro: alert and oriented x 3. Moving all extermities - Constitutional Vitals: Temp Pulse Resp BP Pulse Ox 98.0 F 96 H 20 144/86 98 04/13/21 11:53 04/13/21 11:53 04/13/21 11:53 04/13/21 11:53 04/13/21 11:53 Plan Follow up with: PRIMARY CARE, [Primary Care Provider] - 3-5 Days Prescriptions: Amoxicillin/Potassium Clav [Augmentin 875-125 Tablet] 1 each PO BID 7 Days #14 tablet Ibuprofen [Motrin 600 MG tab] 600 mg PO Q8H PRN 30 Days #90 tablet PRN Reason: Pain/swelling in leg
[2021-04-13 17:37] VITALS: BP 146/90
== END 2021-04-13 18:39 | disposition home health service (06) | DRG 871 ==
LOC: ED 16:57 → CC1 04-07 01:04 → 4A 04-08 20:53
PROVIDERS: ADMIT Internal Medicine Geriatric Medicine; ATTEND Internal Medicine
DX: A41.9 Sepsis, unspecified organism (principal); J18.9 Pneumonia, unspecified organism; R65.21 Severe sepsis with septic shock; G93.41 Metabolic encephalopathy; N39.0 Urinary tract infection, site not specified; E87.2 Acidosis; D69.6 Thrombocytopenia, unspecified; E87.6 Hypokalemia; E83.39 Other disorders of phosphorus metabolism; Z20.822 Contact with and (suspected) exposure to COVID-19
CPT/HCPCS: 36415; 70450; 71045; 71275; 72125; 74177; 76705; 80048; 80053; 80202; 81001; 82140; 82728; 82947; 83615; 83735; 83880; 84100; 84132; 84145; 84484; 84550; 85007; 85025; 85027; 85379; 85384; 85610; 85652; 85730; 86038; 86140; 86200; 86225; 86431; 87040; 87086; 87806; 93306; 93970; G0378; J2354; J3490; J7502; Q0162; J0456; J0692; J0696; J1100; J2540; J3370; J3475; J3480; J7030; J7040; J7512; Q9967; U0003